=== PATIENT | female | born 1990 | race Caucasian/White ===

== ENCOUNTER → 2017-06-02 11:20 | Outpatient (CLI) | payer OTHER, SELFPAY ==
[2017-06-02 12:42] LABS: Absolute Lymphocyte Count 2.08 X10^3/ul (0.83-4.51); Absolute Neutrophil Count 6.8 X10^3/uL (2.0-7.7); Basophil# 0.02 X10^3/uL; Basophil% 0.2 % (0-1); Eosinophil# 0.07 X10^3/uL; Eosinophils% 0.7 % (0-5); Hematocrit 43.3 % (37-47); Hemoglobin 14.4 g/dl (12.0-15.0); Lymphocyte # 2.08 X10^3/ul (4.0); Lymphocyte % 21.3 % (19-41); Mean Corp Hgb Conc 33.3 g/gl (32-36); Mean Corpuscular Hgb 30.6 pg (27.0-32.0); Mean Corpuscular Volume 92.1 fL (81-99); Mean Platelet Vol. 10.2 fl (6.2-12.0); Monocyte# 0.76 X10^3/uL; Monocyte% 7.8 % (0-10); Neutrophil # 6.82 X10^3/uL (2.7-7.7); Neutrophil % 69.9 % (47-70); Platelet Count 212 K/mm3 (150-450); RBC Distribution Width CV 12.8 % (11.6-14.6); RBC Distribution Width SD 42.4 fl (35.1-43.9); White Blood Count 9.8 K/mm3 (4.4-11.0)
[2017-06-02 12:47] LABS: POSITIVE COUNT NO; POSITIVE DIFFERENTIAL NO; POSITIVE MORPHOLOGY NO
[2017-06-02 21:18] LABS: Chlamydia Trachomatis by PCR Negative (Negative); Neisserai gonorrhoeae by PCR Negative (Negative); Probe Check PASS; Sample Adequacy Control PASS; Specimen Processing Control PASS
[2017-06-03 07:46] LABS: HEPATITIS B SURFACE AG Negative (Negative)
[2017-06-03 10:12] LABS: Rubella IgG 251.4 IU/mL
[2017-06-05 03:56] LABS: Rapid Plasmin Reagin (RPR) NONREACTIVE (NONREACTIVE)
== END ==
PROVIDERS: Family Provider Family Medicine; PCP Family Medicine; Visit Provider Obstetrics & Gynecology
DX: Z34.81 Encounter for supervision of other normal pregnancy, first trimester (principal)
CPT/HCPCS: 36415; 85025; 86592; 86762; 86850; 86900; 87086; 87340; 87491; 87591

== ENCOUNTER → 2017-08-28 08:00 | Outpatient (CLI) | payer OTHER, SELFPAY ==
--- NOTE | 2017-08-28 08:03 | US_ITS ---
STUDY: SECOND AND THIRD TRIMESTER OBSTETRICAL ULTRASOUND REASON FOR EXAM: Female, 27 years old. anatomy scan LMP: 04/10/2017 TECHNIQUE: Transabdominal. Transvaginal used to evaluate cervix only. PRIOR ULTRASOUND: None. FINDINGS: There is a single intrauterine fetus. The fetus is in a cephalic presentation. There is demonstrated cardiac activity with a heart rate of 144 bpm. There is a normal amniotic fluid volume. The largest amniotic fluid pocket measures 9.8 cm. The placenta is anterior in location and is not low lying. There are Grade 0 placental changes. The cervix measures 3.4 cm in length. The adnexal regions are not visualized. BIOMETRY: BPD: 4.8 cm: 20 weeks, 4 days HC: 17.8 cm: 20 weeks, 2 days AC: 15.1 cm: 20 weeks, 3 days FL: 3.3 cm: 20 weeks, 2 days age by current US: 20 weeks, 3 days. ALVIN by current US: 01/12/2018. Estimated weight: 343 grams, +/- 50 grams, 61 %. Age by LMP: 20 weeks, 0 days. ALVIN by LMP: 01/15/2018. ANATOMY: Gender: Female Cranium: Normal lateral ventricles. Normal choroid plexus. Normal cerebellum. Normal cisterna magna. Normal face, nose and lips. Chest: Normal 4-chamber heart. Abdomen/Pelvis: Normal diaphragm. Normal stomach. Normal abdominal wall. Normal cord insertion. Normal 3 vessel cord. Normal kidneys. Normal bladder. Spine: Normal cervical spine. Normal thoracic spine. Normal lumbar spine. Normal sacrum. Extremities: Normal bilateral upper extremities. Normal bilateral lower extremities. INCIDENTALLY NOTED IS NUCHAL CORD. US/OB Anatomy Scan IMPRESSION: Single live intrauterine and current gestational age of 20 weeks 3 days with estimated date of delivery 01/12/2018. Visualized anatomy appears within normal limits. Please note nuchal cord Electronically Signed: Jas Sylvester DO at 8:14 EDT Tel , Service support ,
== END ==
PROVIDERS: Family Provider Family Medicine; PCP Family Medicine; Visit Provider Nurse Practitioner Women's Health
DX: Z34.90 Encounter for supervision of normal pregnancy, unspecified, unspecified trimester (principal)
CPT/HCPCS: 76805

== ENCOUNTER → 2017-10-19 09:37 | Outpatient (CLI) | payer OTHER, SELFPAY ==
[2017-10-19 11:28] LABS: Glucose Challenge Gest 1H 50g 112 mg/dL (70-140)
[2017-10-19 12:23] LABS: HIV - WCH Non-Reactive (Nonreactive)
== END ==
PROVIDERS: Family Provider Family Medicine; PCP Family Medicine; Visit Provider Obstetrics & Gynecology
DX: O99.89 Other specified diseases and conditions complicating pregnancy, childbirth and the puerperium (principal); M99.04 Segmental and somatic dysfunction of sacral region; Z3A.00 Weeks of gestation of pregnancy not specified
CPT/HCPCS: 82950; 86703

== ENCOUNTER → 2017-12-18 16:17 | Outpatient (CLI) | payer OTHER, SELFPAY ==
[2017-12-18 18:30] LABS: Group B Strep DNA By PCR Negative (Negative); Internal Control PASS; Probe Check PASS; Specimen Processing Control PASS
== END ==
PROVIDERS: Visit Provider Obstetrics & Gynecology
DX: Z34.83 Encounter for supervision of other normal pregnancy, third trimester (principal)
CPT/HCPCS: 87081; 87653

== ENCOUNTER 2018-01-10 23:00 | Inpatient (IN) | payer OTHER, SELFPAY ==
[2018-01-10 22:44] VITALS: BMI 37.0
[2018-01-10 23:01] LABS: ROM Internal Control Test YES-OK TO RESULT pt. (Internal QC); ROM Patient Test POSITIVE (Negative)
[2018-01-10] MEDS: Lactated Ringers 1,000 ML 50 ML IV (23:20)
[2018-01-10 23:41] LABS: Hematocrit 37.7 % (37-47); Hemoglobin 12.1 g/dl (12.0-15.0); Mean Corp Hgb Conc 32.1 g/gl (32-36); Mean Corpuscular Hgb 29.4 pg (27.0-32.0); Mean Corpuscular Volume 91.7 fL (81-99); Mean Platelet Vol. 10.8 fl (6.2-12.0); Platelet Count 181 K/mm3 (150-450); RBC Distribution Width CV 13.1 % (11.6-14.6); RBC Distribution Width SD 43.7 fl (35.1-43.9); Red Blood Count 4.11 M/mm3 (4.2-5.4); White Blood Count 11.9 K/mm3 (4.4-11.0)
[2018-01-10 23:42] LABS: Scan Indicated on CBC? Y/N NO
[2018-01-11] MEDS: Oxytocin 30 units/NS 500 ml 30 UNITS/500 ML IV.SOLN IV (01:27)
--- NOTE | 2018-01-11 01:29 | PCM.HP.OB ---
- Problem List (1) Full-term PROM with onset of labor within 24 hours of rupture Status: Acute (2) IUD contraception Status: Acute Comment: plan mirena iud PP- No PA required, reference number [id number] (3) screening encounter Status: Acute Comment: declines genetic screening (4) Supervision of normal Status: Acute Qualifiers: Comment: PRR ALVIN 01/15/18 girl [facility] Sanya Sirdevi History Date of Admission: 01/10/18 Final ALVIN: 01/15/18 Gestational age: 39 Weeks and 3 Days History of this : This is a 27 year-old, at 39 weeks gestational age presents with PROM. Her water broke and she was 4-5 cm, but after 6 hours she had minimal cervical change. she denies any vb and admits good fm. Medical History: Medical History (Last Reviewed 01/08/18 @ 11:19 by Meg Curtis) Environmental allergies Z91.09 GERD (gastroesophageal reflux disease) K21.9 Heart murmur R01.1 Allergies No Known Allergies Allergy (Verified 01/08/18 11:22) Home Medications: Home Medications Vit No.130/Iron/FA [ Vitamins] 1 ea PO DAILY 11/02/15 Ranitidine HCl [Acid Control] 150 mg PO DAILY 01/10/18 Smoking Status: Never smoker Alcohol: None Number of Fetus(es): 1 Heart Tracin moderate variability reactive no decels cat I tracing TOCO Analysis: irregular History Past Pregnancies: Past Pregnancies Pregancy History 2 Elective abortions Hx Para 1 Spontaneous abortions Hx # Term Pregnancies Ectopic pregnancies Hx # Pregnancies Multiple births # of living children Past Pregnancies Del. Date Name GA/Weeks Outcome Route Bth Weight Gen Labor Lgth Anesthesia Del Locatn Provider FOB 03/22/16 Sanya 38 live - full term 8lbs 1oz Female epidural Ronnie MIGUELINA Sridevi Delivery Date: 03/22/16 On 12/11/17 @ 09:30 Meg Curtis No issues during or delivery. Labs: Mom's Problem List Problem Status Onset Code Full-term PROM with onset of labor within 24 hours of rupture Acute O42.02 Mom's Labs & Results 01/10/18 01/10/18 01/10/18 22:35 23:20 23:20 WBC 11.9 H RBC 4.11 L Hgb 12.1 Hct 37.7 MCV 91.7 MCH 29.4 MCHC 32.1 RDW 13.1 RDW Differential 43.7 Plt Count 181 MPV 10.8 Vag Amniotic Fld Detect POSITIVE H Blood Type A POSITIVE Antibody Screen NEGATIVE Course Did the patient receive Yes care? Labs Blood Type: A RH: POSITIVE RPR/VDRL/Syphilis Nonreactive Rubella status Immune HbSAg Negative Date Done: 06/02/17 Chlamydia Negative Gonorrhea Negative HIV/AIDS Non-Reactive Group B Strep: Negative Current Obstetrical History Gestational Diabetes No Incompetent Cervix No Infertility No IUGR No Macrosomia No Hypertension/Pre-eclampsia No Placenta Previa/Abruption No PTL/PROM No Uterine anomaly No Oligohydramnios No Polyhydramnios No Multiple gestation No Past Medical History Asthma No Diabetes No Hypertension No Heart disease No Mitral valve prolapse No Neurologic/Seizure disorder/ No Migraines Kidney disease No Liver disease No Varicosities No Clotting disorders/Hx of DVT No Thyroid Dysfunction No Other medical diseases No Psychiatric disorders No Major trauma No Abnormal PAP smear No Sleep apnea No Mammogram in the last 2 years No Social History Marital Status: Alleged father sridevi Hx Smoking No Smoking Status Never smoker Expected Delivery Method: Spontaneous Vaginal Describe any other labor & delivery plans:: ALVIN Calculator. Estimated Delivery Date 01/15/18. Based on LMP (certain) 04/10/17. Current WG 39w 0d. Number 1. Expected Delivery Route/Plan. . Specific Issue/Plans. FLU VACCINE GIVEN. minichart given: given. tdap vaccine: given. rhogam: na. LARC form signed: signed. labor support person: Sridevi. pain management: epidural ok. cut cord/dad catch: yes. : yes. PP control planned: IUD Review of Systems Constitutional: Denies: Fever, Malaise Eyes: Denies: Blurred vision, Vision Change HEENT: Denies: Head Aches, Visual Changes Cardiovascular: Denies: Chest Pain, Palpitations Respiratory: Denies: Cough, Shortness of Breath, Wheezing Gastrointestinal: Denies: Abdominal Pain, Diarrhea, Nausea, Vomiting Genitourinary: Denies: Dysuria, Hematuria Gynecological: Reports: Vaginal discharge Musculoskeletal: Denies: Joint Pain, Muscle pain Skin: Denies: Lesions, Rash Neurological: Denies: Blurred vision, Focal weakness, Headaches Psychiatric: Denies: Anxiety, Depression Endocrine: Denies: Heat/ Cold Intolerance Hematologic/ Lymphatic: Denies: Easy Bruising, Easy Bleeding Physical Exam General: Alert, Cooperative, No apparent distress HEENT: Atraumatic, Normocephalic. Negative for: Thyromegaly, Lymphadenopathy Cardiovascular: Regular rate Lungs: Normal air movement Abdomen: Soft, Non Tender, Gravid Neurological: Deep Tendon Reflexes 2+/4 and Symmetrical, Neuro grossly intact. Negative for: Clonus CREDIT ANALYSIS MANAGER: Normal external genitalia. Negative for: Vulvar lesions Estimated gestational size: Appropriate for gestational size Presentation: Cephalic Cervix Dilation (cm): 4.5 Assessment/Plan All Active Problems (Last Reviewed 01/08/18 @ 11:19 by Meg Curtis) Full-term PROM with onset of labor within 24 hours of rupture (Acute) IUD contraception (Acute) Segmental and somatic dysfunction of pelvic region (Acute) Segmental and somatic dysfunction of sacral region (Acute) Segmental and somatic dysfunction of lumbar region (Acute) Sciatic leg pain (Acute) screening encounter (Acute) Supervision of normal (Acute) This is a 27 year-old, at 39 weeks gestational age presents with PROM Patient presents PROm recommend pitocin per protocol due to minimal cervical change in 6 hours post ROM Pain management: plans epidural. GBS neg. Management of any complications: none I have reviewed the [facility] and made any clinically relevant updates.
[2018-01-11] MEDS: Lactated Ringers 1,000 ML 50 ML IV ×4 (05:36→13:08)
[2018-01-11] MEDS: fentaNYL-bupivacaine (epidural) 100 ML BAG EPIDURAL ×2 (06:10→10:34)
[2018-01-11] MEDS: Oxytocin 30 units/NS 500 ml 30 UNITS/500 ML IV.SOLN 334 UNITS IV (14:55)
[2018-01-11] MEDS: Oxytocin 30 units/NS 500 ml 30 UNITS/500 ML IV.SOLN 167 UNITS IV (15:25)
[2018-01-11 20:00] VITALS: BP 120/71; PULSE 77; RESP 16; TEMP 37.1
[2018-01-12] VITALS: BP 124/70; PULSE 68; RESP 18
[2018-01-12 05:40] VITALS: BP 125/76; PULSE 67; RESP 16; TEMP 36.9
[2018-01-12] MEDS: Acetaminophen 500 MG Tablet 1000 MG PO ×2 (06:07→16:18)
[2018-01-12] MEDS: Naproxen 250 MG Tablet 500 MG PO (12:02)
[2018-01-12] MEDS: Prenatal Vits Tablet 1 TABLET PO (12:02)
[2018-01-12 14:00] VITALS: BP 126/76; PULSE 67; RESP 16; TEMP 36.6; O2SAT 97
--- NOTE | 2018-01-12 14:50 | PCM.DCVAG ---
Discharge Diet: No Restrictions Discharge Activity: Return to Normal Activity, May not drive while taking narcotic pain medications., May Shower May resume sexual activity in: 4-6 weeks Call your doctor if your incision/area has: Continuous Slow Oozing, Sudden Increased Bleeding, Increased Pain/ Swelling, Increased Redness, Foul Smelling Discharge Additional Instructions: If you experience any of the following, contact your healthcare provider. Bleeding that soaks a pad every hour for 2 hours Fever 100.4 or higher Unrelieved incision or abdominal pain Swelling, redness, discharge or bleeding from your incision or episiotomy site Your incision begins to separate Problems urinating (including inability to urinate or burning while urinating). Visual changes Severe headache Flu-like symptoms Pain or redness in one of both of your breasts Pain, warmth, tenderness or swelling in your legs, especially the calf area Frequent nausea and vomiting Symptoms of depression or anxiety If you experience any of the following, call 911 or go to the nearest Emergency Room. Chest pain Problems breathing Seizure activity Partial or complete paralysis of a body part, slurred speech, weakness or drooping of the face, or a sudden inability to walk or hold your balance Allergies/Adverse Reactions: Allergies No Known Allergies Allergy (Verified 01/08/18 11:22) Medications to take at Discharge Vit No.130/Iron/FA [ Vitamins] 1 ea PO DAILY 11/02/15 Ranitidine HCl [Acid Control] 150 mg PO DAILY 01/10/18 Please Follow Up With: Dior Galvan MD - [phone] When: Call to make an appointment with your doctor in 6 weeks. If you had elevated Blood pressure or 4th degree laceration you will need to be seen in 2 weeks. Primary Care Physician: Laverne Mitchell DO [Primary Care Provider] - Test Results: Test results from this visit will be discussed in further detail at your follow-up appointment, if applicable.
[2018-01-12 14:51] VITALS: BP 126/78; PULSE 76; RESP 16; TEMP 36.6; O2SAT 97
--- NOTE | 2018-01-12 14:51 | DCINST_ITS ---
Discharge Diet: No Restrictions Discharge Activity: Return to Normal Activity, May not drive while taking narcotic pain medications., May Shower May resume sexual activity in: 4-6 weeks Call your doctor if your incision/area has: Continuous Slow Oozing, Sudden Increased Bleeding, Increased Pain/ Swelling, Increased Redness, Foul Smelling Discharge Additional Instructions: If you experience any of the following, contact your healthcare provider. * Bleeding that soaks a pad every hour for 2 hours * Fever 100.4 or higher * Unrelieved incision or abdominal pain * Swelling, redness, discharge or bleeding from your incision or episiotomy site * Your incision begins to separate * Problems urinating (including inability to urinate or burning while urinating) . * Visual changes * Severe headache * Flu-like symptoms * Pain or redness in one of both of your breasts * Pain, warmth, tenderness or swelling in your legs, especially the calf area * Frequent nausea and vomiting * Symptoms of depression or anxiety If you experience any of the following, call 911 or go to the nearest Emergency Room. * Chest pain * Problems breathing * Seizure activity * Partial or complete paralysis of a body part, slurred speech, weakness or drooping of the face, or a sudden inability to walk or hold your balance Allergies/Adverse Reactions: Allergies No Known Allergies Allergy (Verified 01/08/18 11:22) Medications to take at Discharge Vit No.130/Iron/FA [ Vitamins] 1 ea PO DAILY 11/02/15 Ranitidine HCl [Acid Control] 150 mg PO DAILY 01/10/18 Please Follow Up With: Dior Galvan MD - [phone] When: Call to make an appointment with your doctor in 6 weeks. If you had elevated Blood pressure or 4th degree laceration you will need to be seen in 2 weeks. Primary Care Physician: Laverne Mitchell DO [Primary Care Provider] - Test Results: Test results from this visit will be discussed in further detail at your follow- up appointment, if applicable.
--- NOTE | 2018-01-13 21:33 | PCM.OB.VAG ---
- Problem List (1) Full-term PROM with onset of labor within 24 hours of rupture Status: Acute (2) IUD contraception Status: Acute Comment: plan mirena iud PP- No PA required, reference number [id number] (3) screening encounter Status: Acute Comment: declines genetic screening (4) Supervision of normal Status: Acute Qualifiers: Comment: PRR ALVIN 01/15/18 girl Monty MARSHALL Sanya Kalpesh Vaginal Delivery Maternal Presentation: Active Labor, Spontaneous Rupture of Membranes Amniotic Membrane Rupture Type: Spontaneous at home Amniotic Fluid Description: Clear Final ALVIN: 01/15/18 Gestational age: 39 Weeks and 5 Days Date of Procedure: 01/11/18 Surgery/ Procedure Performed: Spontaneous Vaginal Delivery Type of Anesthesia: Epidural Description of Procedure: Patient began pushing and delivered the head in the DEANN presentation. The head was delivered atraumatically. The anterior and posterior shoulders delivered without complication followed by the rest of the infant and the infant was placed on the maternal abdomen. Delayed cord clamping was employed for approximately 60 seconds. Cord was clamped and cut and gentle traction was applied to the cord and the placenta delivered spontaneously immediately following it was noted to be intact with three-vessel cord. The perineum and vagina were inspected and noted to have a small first-degree laceration that was repaired in the usual fashion with 3-0 Vicryl Rapide. EBL was 500 cc. Patient and infant tolerated delivery well. Presentation: DEANN Placental Delivery Description: Spontaneous Placenta Disposition: [facility] Cord Vessel Description: 3 Vessels Cord Entanglement: None Estimated Blood Loss: 500 Infant A gender: Female Episiotomy Description: None Laceration: Perineal Extension/lac, 1st degree Medications given after delivery: IV Pitocin Complications: None
--- NOTE | 2018-01-13 21:35 | PCM.PN.OB ---
Subjective: late entry 01/13/18- patient seen 01/12/18 at 7:50 am no CP SOB N V doing well pain controlled - Physical Exam General: Alert, Oriented x3 Vital Signs Temp Pulse Resp BP Pulse Ox 97.8 F 76 16 126/78 H 97 01/12/18 14:51 01/12/18 14:51 01/12/18 14:51 01/12/18 14:51 01/12/18 14:51 Oxygen Delivery Method Room Air Weight: 222 lb 10.67 oz Body Mass Index (BMI) 37.0 Intake and Output for Last 24 Hours 01/11/18 01/12/18 01/13/18 23:59 23:59 23:59 Intake Total 1150 / 1150 Output Total 950 / 950 Balance 200 / 200 Medical Necessity - Tobacco Use Smoking Status: Never smoker Assessment/Plan All Active Problems (Last Reviewed 01/08/18 @ 11:19 by Meg Curtis) Full-term PROM with onset of labor within 24 hours of rupture (Acute) IUD contraception (Acute) Segmental and somatic dysfunction of pelvic region (Acute) Segmental and somatic dysfunction of sacral region (Acute) Segmental and somatic dysfunction of lumbar region (Acute) Sciatic leg pain (Acute) screening encounter (Acute) Supervision of normal (Acute) s/p ppd 1 routine care doing well dc home
== END 2018-01-12 16:45 | disposition home or self-care (01) | DRG 774 ==
LOC: WP 01-11 11:10 → WPOUT 01-12 07:12
PROVIDERS: Admitting Provider Obstetrics & Gynecology; Family Provider Family Medicine; PCP Family Medicine; Visit Provider Obstetrics & Gynecology
DX: O42.02 Full-term premature rupture of membranes, onset of labor within 24 hours of rupture (principal); O99.413 Diseases of the circulatory system complicating pregnancy, third trimester; R01.1 Cardiac murmur, unspecified; O70.0 First degree perineal laceration during delivery; O99.613 Diseases of the digestive system complicating pregnancy, third trimester; K21.9 Gastro-esophageal reflux disease without esophagitis; Z3A.39 39 weeks gestation of pregnancy; Z37.0 Single live birth
CPT/HCPCS: 59025; 59050; 84112; 85027; 86850; 86900; 99218; J7120; G0378

== ENCOUNTER → 2018-02-22 20:16 | Outpatient (CLI) | payer OTHER, SELFPAY ==
[2018-02-25 11:22] LABS: HPV Reflexed? NOT INDICATED
== END ==
PROVIDERS: Obstetrics & Gynecology; Family Provider Family Medicine; PCP Family Medicine; Referring Provider Nurse Practitioner Women's Health; Visit Provider Nurse Practitioner Women's Health
DX: Z12.4 Encounter for screening for malignant neoplasm of cervix (principal)
CPT/HCPCS: 87624; 88175; G0145

== ENCOUNTER → 2018-04-01 12:50 | Outpatient (CLI) | payer OTHER, SELFPAY ==
[2018-03-29 13:08] VITALS: BMI 33.1
--- NOTE | 2018-04-01 12:52 | US_ITS ---
STUDY: ULTRASOUND OF THE FEMALE PELVIS - COMPLETE REASON FOR EXAM: Female, 28 years old. IUD placement. LMP: February 22, 2018. TECHNIQUE: Transabdominal and Transvaginal TECHNICAL QUALITY: Adequate. COMPARISON: None. FINDINGS: The uterus is anteverted and is in a midline position. The uterus measures 6.5 cm x 5.1 cm x 3.5 cm. Normal uterine cervix. The endometrium measures 3.6 mm in thickness, and is hyperechoic. There is no demonstrated endometrial mass. There is no demonstrated myometrial mass. I.U.D. - The patient does have an I.U.D. it is in good position. The right ovary is visualized. The right ovary measures 3.0 cm x 2.0 cm x 2.3 cm. There is no right ovarian cyst or ovarian mass. There is no visualized right adnexal mass or complex lesion. There is normal arterial and normal venous vascularity. The left ovary is visualized. The left ovary measures 2.5 cm x 2.2 [place] by 1.5 cm. There is no left ovarian cyst or ovarian mass. There is no visualized left adnexal mass or complex lesion. There is normal arterial and normal venous vascularity. There is no fluid in the cul-de-sac. The pre void volume of the bladder was 598 ml. Polycystic ovary disease: No. US/Transvaginal Non- IMPRESSION: Normal female pelvis. Electronically Signed: Marshall Silverio MD at 13:24 EST Tel [phone], Service support ,
--- NOTE | 2018-04-01 12:52 | US_ITS ---
STUDY: ULTRASOUND OF THE FEMALE PELVIS - COMPLETE REASON FOR EXAM: Female, 28 years old. IUD placement. LMP: February 22, 2018. TECHNIQUE: Transabdominal and Transvaginal TECHNICAL QUALITY: Adequate. COMPARISON: None. FINDINGS: The uterus is anteverted and is in a midline position. The uterus measures 6.5 cm x 5.1 cm x 3.5 cm. Normal uterine cervix. The endometrium measures 3.6 mm in thickness, and is hyperechoic. There is no demonstrated endometrial mass. There is no demonstrated myometrial mass. I.U.D. - The patient does have an I.U.D. it is in good position. The right ovary is visualized. The right ovary measures 3.0 cm x 2.0 cm x 2.3 cm. There is no right ovarian cyst or ovarian mass. There is no visualized right adnexal mass or complex lesion. There is normal arterial and normal venous vascularity. The left ovary is visualized. The left ovary measures 2.5 cm x 2.2 Pablito by 1.5 cm. There is no left ovarian cyst or ovarian mass. There is no visualized left adnexal mass or complex lesion. There is normal arterial and normal venous vascularity. There is no fluid in the cul-de-sac. The pre void volume of the bladder was 598 ml. Polycystic ovary disease: No. US/Pelvic (Non ) IMPRESSION: Normal female pelvis. Electronically Signed: Marshall Silverio MD at 13:24 EST Tel [phone], Service support ,
--- OUTSIDE RECORDS SUMMARY | 2018-05-27 16:17 | XMS RPT_ITS ---
:1990 Author Organization [facility] Support Name Relationship Address Phone KATIE FRANCO Unavailable [id number] + [place] [address] [facility] Unavailable [address] + [place] [address] KATIE FRANCO Unavailable [address] + [place] [address] [facility] Unavailable [address] + [place] [address] KATIE FRANCO Unavailable [address] + [place] [address] [facility] Unavailable [address] + [place] [address] KATIE FRANCO Unavailable [address] + [place] [address] [facility] Unavailable [address] + [place] [address] KATIE FRANCO Unavailable [address] + [place] [address] [facility] Unavailable [address] + [place] [address] KATIE FRANCO Unavailable [address] + [place] [address] [facility] Unavailable [address] + [place] [address] KATIE FRANCO Unavailable [address] + [place] [address] [facility] Unavailable [address] + [place] [address] KATIE FRANCO Unavailable [address] + [place] [address] [facility] Unavailable [address] + [place] [address] CHRISTO FRANCOON Unavailable [address] + [place] [address] [facility] Unavailable [address] + [place] [address] CHRISTO FRANCOON Unavailable [address] + [place] [address] [facility] Unavailable [address] + [place] [address] CHRISTO FRANCOON Unavailable [address] + [place] [address] [facility] Unavailable [address] + [place] [address] CHRISTO FRANCOON Unavailable [address] + [place] [address] [facility] Unavailable [address] + [place] [address] CHRISTO FRANCOON Unavailable [address] + [place] [address] [facility] Unavailable [address] + [place] [address] CHRISTO FRANCOON Unavailable [address] + [place] [address] [facility] Unavailable [address] + [place] [address] CHRISTO FRANCOON Unavailable [address] + [place] [address] [facility] Unavailable [address] + [place] [address] CHRISTO FRANCOON Unavailable [address] + [place] [address] [facility] Unavailable [address] + [place] [address] CHRISTO FRANCOON Unavailable [address] + [place] [address] [facility] Unavailable [address] + [place] [address] CHRISTO FRANCOON Unavailable [address] + [place] [address] [facility] Unavailable [address] + [place] [address] CHRISTO FRANCOON Unavailable [address] + [place] [address] [facility] Unavailable [address] + [place] [address] CHRISTO FRANCOON Unavailable [address] + [place] [address] [facility] Unavailable [address] + [place] [address] CHRISTO FRANCOON Unavailable [address] + [place] [address] [facility] Unavailable [address] + [place] [address] CHRISTO FRANCOON Unavailable [address] + [place] [address] [facility] Unavailable [address] + [place] [address] CHRISTO FRANCOON Unavailable [address] + [place] [address] [facility] Unavailable [address] + [place] [address] CHRISTO FRANCOON Unavailable [address] + [place] [address] [facility] Unavailable [address] + [place] [address] CHRISTO FRANCOON Unavailable [address] + [place] [address] [facility] Unavailable [address] + [place] [address] CHRISTO FRANCOON Unavailable [address] + [place] [address] [facility] Unavailable [address] + [place] [address] CHRISTO FRANCOON Unavailable [address] + [place] [address] [facility] Unavailable [address] + [place] [address] CHRISTO FRANCOON Unavailable [address] + [place] [address] [facility] Unavailable [address] + [place] [address] KATIE FRANCO Unavailable [address] [address] + [place] [address] [facility] Unavailable [address] + [place] [address] KATIE FRANCO Unavailable [address] + [place] [address] [facility] Unavailable [address] + [place] [address] KATIE FRANCO Unavailable [address] + [place] [address] [facility] Unavailable [address] + [place] [address] KATIE FRANCO Unavailable [address] + [place] [address] [facility] Unavailable [address] + [place] [address] Care Team Providers Name Role Phone Dior Galvan Attending Unavailable Malys, Laverne Referring Unavailable Malys, Laverne Primary Care Unavailable Dior Galvan Attending Unavailable Malys, Laverne Primary Care Unavailable Dior Galvan Referring Unavailable Dior Galvan Attending Unavailable Malys, Laverne Referring Unavailable Malys, Laverne Primary Care Unavailable MinaRaghavy Attending Unavailable Malys, Laverne Referring Unavailable Malys, Laverne Primary Care Unavailable [place] Stefanie Attending Unavailable Mina, Stefanie Referring Unavailable Malys, Laverne Primary Care Unavailable [place] Stefanie Attending Unavailable Malys, Laverne Referring Unavailable Malys, Laverne Primary Care Unavailable DossieKamila D.C. Attending Unavailable Malys, Laverne Referring Unavailable Malys, Laverne Primary Care Unavailable DossieKamila D.C. Attending Unavailable Malys, Laverne Referring Unavailable Malys, Laverne Primary Care Unavailable DossiKamila bryan D.C. Attending Unavailable Malys, Laverne Referring Unavailable Malys, Laverne Primary Care Unavailable Dior Galvan Attending Unavailable Malys, Laverne Referring Unavailable Malys, Laverne Primary Care Unavailable Marcanthony, Dior Attending Unavailable Malys, Laverne Referring Unavailable Malys, Laverne Primary Care Unavailable Marcanthony, Dior Attending Unavailable Marcanthony, Dior Referring Unavailable Malys, Laverne Primary Care Unavailable ASSESSMENT, HEALTH RISK Attending Unavailable ASSESSMENT, HEALTH RISK Referring Unavailable Marcanthony, Dior Primary Care Unavailable Kamila Pascal D.C. Attending Unavailable Malys, Laverne Referring Unavailable Marcanthony, Dior Primary Care Unavailable Marcanthony, Dior Attending Unavailable Malys, Laverne Referring Unavailable Marcanthony, Dior Primary Care Unavailable Marcanthony, Dior Attending Unavailable Malys, Laverne Referring Unavailable Marcanthony, Dior Primary Care Unavailable Marcanthony, Dior Primary Care Unavailable Referred, Self Attending Unavailable Marcanthony, Dior Attending Unavailable Malys, Laverne Referring Unavailable Marcanthony, Dior Primary Care Unavailable Marcanthony, Dior Attending Unavailable Marcanthony, Dior Referring Unavailable Marcanthony, Dior Primary Care Unavailable Marcanthony, Dior Attending Unavailable Marcanthony, Dior Referring Unavailable Primay Care Physicia, No Primary Care Unavailable Marcanthony, Dior Attending Unavailable Malys, Laverne Referring Unavailable Primay Care Physicia, No Primary Care Unavailable Marcanthony, Dior Admitting Unavailable Marcanthony, Dior Attending Unavailable Marcanthony, Dior Referring Unavailable Malys, Laverne Primary Care Unavailable Mina, Stefanie Attending Unavailable Marcanthony, Dior Referring Unavailable Malys, Laverne Primary Care Unavailable Marcanthony, Dior Attending Unavailable Marcanthony, Dior Referring Unavailable Malys, Laverne Primary Care Unavailable Marcanthony, Dior Attending Unavailable Malys, Laverne Primary Care Unavailable Marcanthony, Dior Admitting Unavailable Marcanthony, Dior Referring Unavailable Marcanthony, Dior Admitting Unavailable Marcanthony, Dior Attending Unavailable Malys, Laverne Primary Care Unavailable Marcanthony, Dior Consulting Unavailable Marcanthony, Dior Attending Unavailable Malys, Laverne Referring Unavailable Marcanthony, Dior Admitting Unavailable Marcanthony, Dior Attending Unavailable Marcanthony, Dior Referring Unavailable Malys, Laverne Primary Care Unavailable Marcanthony, Dior Consulting Unavailable Malys, Laverne Referring Unavailable Mina, Stefanie Attending Unavailable Malys, Laverne Primary Care Unavailable Mina, Stefanie Attending Unavailable [place], Stefanie Referring Unavailable Mina, Stefanie Attending Unavailable Malys, Laverne Referring Unavailable Mina, Stefanie Attending Unavailable [place], Stefanie Referring Unavailable Malys, Laverne Primary Care Unavailable PROBLEMS PROBLEMS DATE TYPE CONDITION / CODE ATTENDING STATUS SOURCE 03/29/2018 Unknown Z30.431 - Encounter MinaRaghav horny Active [place] for routine Community checking of Hospital intrauterine Repository contraceptive device / Z30.431(ICD-10) 02/23/2018 Unknown Z12.4 - Encounter MinaStefanie horn Active [place] for screening for [facility] malignant neoplasm Hospital of cervix / Repository Z12.4(ICD-10) 02/22/2018 Unknown Z97.5 - Presence of MinaStefanie Active [place] (intrauterine) [facility] contraceptive Hospital device / Repository Z97.5(ICD-10) 02/22/2018 Unknown Z30.430 - Encounter [place] Active [place] for insertion of [facility] intrauterine Hospital contraceptive Repository device / Z30.430(ICD-10) 01/08/2018 Unknown Z36.9 - Encounter Mandy, Active [place] for [facility] screening, [facility] unspecified / Repository Z36.9(ICD-10) 01/08/2018 Unknown Z34.83 - Encounter Marcanthony, Active [place] for supervision of [facility] other normal Hospital , third Repository trimester / Z34.83(ICD-10) 12/22/2017 Unknown Z34.90 - Encounter Marcanthony, Active [place] for supervision of [facility] normal , Hospital unspecified, Repository unspecified trimester / Z34.90(ICD-10) 11/23/2017 Unknown Z34.82 - Encounter Mandy, Active [place] for supervision of [facility] other normal Hospital , second Repository trimester / Z34.82(ICD-10) 10/20/2017 Unknown M99.03 - Segmental Dossie, Kamila Active [place] and somatic [facility]. Community dysfunction of Hospital lumbar region / Repository M99.03(ICD-10) 10/20/2017 Unknown M99.04 - Segmental Dossie, Kamila Active [place] and somatic [facility]. Community dysfunction of Hospital sacral region / Repository M99.04(ICD-10) 10/20/2017 Unknown M99.05 - Segmental Dossie, Kamila Active [place] and somatic [facility]. Community dysfunction of Hospital pelvic region / Repository M99.05(ICD-10) 10/19/2017 Unknown Z34.81 - Encounter Mandy, Active [place] for supervision of [facility] normal Hospital , first Repository trimester / Z34.81(ICD-10) 10/19/2017 Unknown Z23 - Encounter for Mandy, Active [place] immunization / [facility] Z23(ICD-10) Hospital Repository 10/19/2017 Unknown Z3A.27 - 27 weeks Mandy, Active [place] gestation of [facility] / Hospital Z3A.27(ICD-10) Repository 09/21/2017 Unknown Z3A.23 - 23 weeks Mandy, Active [place] gestation of [facility] / Hospital Z3A.23(ICD-10) Repository 09/11/2017 Unknown M54.30 - Sciatica, Dossie, Kamila Active [place] unspecified side / D.C. [facility] M54.30(ICD-10) Hospital Repository 07/29/2017 Unknown Z3A.15 - 15 weeks Stefanie Enriquez Active [place] gestation of [facility] / Hospital Z3A.15(ICD-10) Repository 06/02/2017 Unknown Z3A.01 - Less than Mandy, Active [place] 8 weeks gestation [facility] of / Hospital Z3A.01(ICD-10) Repository PROCEDURES PROCEDURES No Procedure Records FoundRESULTS RESULTS TRANSVAGINAL Observed: 04/01/2018 Status: F Source: [place] NON- 12:52 PM [facility] REPOSITORY Imaging Services [address] [place] [address] Transvaginal Non- MR#: [id number] Acct: [id number] Name: CLINT FRANCO Rep #: [id number] : 1990 F 28 From: Marshall Silverio MD PCP: Laverne Mitchell DO Status: REG CLI Study: Transvaginal Non- Date of Exam: 04/01/18 Exam# [id number] Ordering Dr: Stefanie Enriquez ASSURANCE OFFICER-C STUDY: ULTRASOUND OF THE FEMALE PELVIS - COMPLETE REASON FOR EXAM: Female, 28 years old. IUD placement. LMP: February 22, 2018. TECHNIQUE: Transabdominal and Transvaginal TECHNICAL QUALITY: Adequate. COMPARISON: None. FINDINGS: The uterus is anteverted and is in a midline position. The uterus measures 6.5 cm x 5.1 cm x 3.5 cm. Normal uterine cervix. The endometrium measures 3.6 mm in thickness, and is hyperechoic. There is no demonstrated endometrial mass. There is no demonstrated myometrial mass. I.U.D. - The patient does have an I.U.D. it is in good position. The right ovary is visualized. The right ovary measures 3.0 cm x 2.0 cm x 2.3 cm. There is no right ovarian cyst or ovarian mass. There is no visualized right adnexal mass or complex lesion. There is normal arterial and normal venous vascularity. The left ovary is visualized. The left ovary measures 2.5 cm x 2.2 [place] by 1.5 cm. There is no left ovarian cyst or ovarian mass. There is no visualized left adnexal mass or complex lesion. There is normal arterial and normal venous vascularity. There is no fluid in the cul-de-sac. The pre void volume of the bladder was 598 ml. Polycystic ovary disease: No. US/Transvaginal Non- IMPRESSION: Normal female pelvis. Electronically Signed: Marshall Silverio MD at 13:24 EST Tel [phone], Service support , CC: TRACIE Enriquez; Laverne Mitchell DO Silk Brusher: Signed PELVIC (NON ) Observed: 04/01/2018 Status: F Source: [place] 12:52 PM [facility] [place] [address] Pelvic (Non ) MR#: [id number] Acct: [id number] Name: JOANCLINT L Rep #: [id number] : 1990 F 28 From: Marshall Silverio MD PCP: Laverne Mitchell DO Status: REG CLI Study: Pelvic (Non ) Date of Exam: 04/01/18 Exam# [id number] Ordering Dr: Stefanie Enriquez STUDY: ULTRASOUND OF THE FEMALE PELVIS - COMPLETE REASON FOR EXAM: Female, 28 years old. IUD placement. LMP: February 22, 2018. TECHNIQUE: Transabdominal and Transvaginal TECHNICAL QUALITY: Adequate. COMPARISON: None. FINDINGS: The uterus is anteverted and is in a midline position. The uterus measures 6.5 cm x 5.1 cm x 3.5 cm. Normal uterine cervix. The endometrium measures 3.6 mm in thickness, and is hyperechoic. There is no demonstrated endometrial mass. There is no demonstrated myometrial mass. I.U.D. - The patient does have an I.U.D. it is in good position. The right ovary is visualized. The right ovary measures 3.0 cm x 2.0 cm x 2.3 cm. There is no right ovarian cyst or ovarian mass. There is no visualized right adnexal mass or complex lesion. There is normal arterial and normal venous vascularity. The left ovary is visualized. The left ovary measures 2.5 cm x 2.2 [place] by 1.5 cm. There is no left ovarian cyst or ovarian mass. There is no visualized left adnexal mass or complex lesion. There is normal arterial and normal venous vascularity. There is no fluid in the cul-de-sac. The pre void volume of the bladder was 598 ml. Polycystic ovary disease: No. US/Pelvic (Non ) IMPRESSION: Normal female pelvis. Electronically Signed: Marshall Silverio MD at 13:24 EST Tel [phone], Service support , CC: TRACIE Enriquez; Laverne Mitchell DO Silk Brusher: Signed ENVIRONMENTAL TECHNOLOGY PROFESSOR OFFICE VISIT Observed: 03/29/2018 Status: F Source: [place] REPORT 1:21 PM [facility] Women's [facility] [address] [place] [address] OFFICE VISIT Date of Service: 03/29/18 MR#: [id number] Acct: [id number] Name: CLINT FRANCO Rep #: [id number] : 1990 Provider: TRACIE Enriquez Age/Sex: 28/F Location: [facility] Status: Signed Intake Vital Signs03/29/18 Height 5 ft 5 in 03/29/18 Weight: 199 lb 2 oz 03/29/18 Body Mass Index (BMI) 33.1 03/29/18 Blood Pressure 118/80 Intake Visit Reasons: f/u Chief Complaint: 6w string check Appeals Examiner Required: No Is patient in pain?: No Allergies No Known Allergies Allergy (Verified 03/29/18 13:08) Medications Vit No.130/Iron/FA [ Vitamins] 1 ea PO DAILY 11/02/15 [History Confirmed 03/29/18] levonorgestrel 20 mcg/24 hr (5 years) intrauterine device 1 insert INTRAUTERINE ONCE 03/29/18 [History Confirmed 03/29/18] Is last menstrual period known: No Post menopausal: No Patient : No : No PFSH Medical History Environmental allergies (Acute) GERD (gastroesophageal reflux disease) (Acute) Heart murmur (Acute) Family History Other Asthma Breast cancer CVA (cerebral vascular accident) Cancer Hypertension Social History Smoking Status: Never smoker alcohol intake: never substance use type: does not use caffeine: Yes what type of physical activity do you participate in: none seatbelt use: always do you feel safe at home: Yes additional social history: TIM BETH HPI f/u: Details: CLINT FRANCO is a 28 year old who presents for 6 week mirena IUD check. States has had to wear tampon every day since placement. No pain. Pregancy History 2 Elective abortions Hx Para 2 Spontaneous abortions Past Pregnancies Del. DateName GA/Weeks Outcome Route Bth WeighInfant GeLabor LgtAnesthesiDel LocatProvider FOB t n h a n Delivery Date: 01/11/18 No notes to display Delivery Date: 03/22/16 On 12/11/17 @ 09:30 Meg Curtis No issues during or delivery. Exam General: bladder normal to palpation External Female Exam: normal external appearance, normal appearance of the urethra Urethra: normal appearance of the urethra Speculum Exam - Vagina: normal appearance of the vagina, normal vaginal discharge, nontender, no lesions Speculum Exam - Cervix: normal appearance of the cervix (Not able to visualize or feel strings. Very posterior cervix), other (smooth, nonfriable) Bimanual Exam- Vagina AND Uterus: bladder normal to palpation, normal bimanual exam, uterine size normal, uterine shape normal, uterine mobility normal, uterus non-tender Bimanual Exam- Adnexa, other: normal adnexae, no adnexal masses, adnexae non-tender Assessment AND Plan Problems 1. IUD check up Z30.431 Plan Ultrasound to confirm IUD placement. Condoms until US resulted Orders Orders: Plan Detail Goals Decrease inflammation and pain Coding Level of Care Code Off vis,est,level 3 Diagnoses IUD check up Z30.431 03/29/18 1321 <Electronically signed by Stefanie GARZA> Date Stefanie GARZA Cosigner Signature: Date (if applicable) CC: ENVIRONMENTAL TECHNOLOGY PROFESSOR OFFICE VISIT Observed: 02/27/2018 Status: F Source: [place] REPORT 2:55 AM [facility] [address] [place] [address] OFFICE VISIT Date of Service: 02/22/18 MR#: [id number] Acct: [id number] Name: CLINT FRANCO Rep #: [id number] : 1990 Provider: TRACIE Enriquez Age/Sex: 27/F Location: [facility] Status: Signed Intake Vital Signs02/22/18 Weight: 200 lb 02/22/18 Blood Pressure 126/74 H Intake Visit Reasons: 6 WEEK PP Appeals Examiner Required: No Is patient in pain?: No Allergies No Known Allergies Allergy (Verified 02/22/18 14:24) Medications Vit No.130/Iron/FA [ Vitamins] 1 ea PO DAILY 11/02/15 [History Confirmed 02/22/18] Ranitidine HCl [Acid Control] 150 mg PO DAILY 01/10/18 [History Confirmed 02/22/18] : No PFSH Medical History Environmental allergies (Acute) GERD (gastroesophageal reflux disease) (Acute) Heart murmur (Acute) Family History Other Asthma Breast cancer CVA (cerebral vascular accident) Cancer Hypertension Social History Smoking Status: Never smoker alcohol intake: never substance use type: does not use caffeine: Yes what type of physical activity do you participate in: none seatbelt use: always do you feel safe at home: Yes additional social history: TIM BETH Pregancy History 2 Elective abortions Hx Para 2 Spontaneous abortions Past Pregnancies Del. DateName GA/Weeks Outcome Route Bth WeighInfant GeLabor LgtAnesthesiDel LocatProvider FOB t n h a n Delivery Date: 01/11/18 No notes to display Delivery Date: 03/22/16 On 12/11/17 @ 09:30 Meg Curtis No issues during or delivery. Depression Screen PHQ-2/9 PHQ-2 Over the last 2 weeks, how often have you been bothered by any of the following problems? 1. Little interest or pleasure in doing things: not at all 2. Feeling down, depressed, or hopeless: not at all Total score: 0 If score is 2 or greater, continue Source: Developed by Drs. Lacho Charles, Snow Jean, Joseph Jason and colleagues, with an educational socorro from [employer]. Scoring: Total Score Depression Severity Action 1-4 Minimal depression No action needed 5-9 Mild depression Repeat PHQ-9 at follow up 10-14 Moderate depression Make tx plan,consider counseling, fup, prescription Post HPI 6 WEEK PP: Details: CLINT FRANCO is a 27 year old who presents for her post visit. Doing well without concerns. Plans mirena IUD today Feeding: Breast Menses resumed: No [place] since delivery: No Emotional Support: Yes Last Pap:: due ROS Card Denies chest pain, Denies shortness of breath Resp Denies shortness of breath GI Denies change in bowel habits, Denies bloating Denies difficulty urinating Skin/Breast Denies breast lump, Denies breast pain, Denies breast skin changes Exam Const General: cooperative, no acute distress, well developed Nutritional Appearance: average body habitus Orientation: oriented x3 Chest Chest palpation AND inspection: abnormal inspection of the chest Breast inspection: normal inspection of the breasts Breast palpation: normal palpation of the breasts, normal palpation of the axillae, no axillary lymphadenopathy GI Palpation: soft, nontender, no masses General: bladder normal to palpation External Female Exam: normal external appearance, normal appearance of the urethra Urethra: normal appearance of the urethra Speculum Exam - Vagina: normal appearance of the vagina, normal vaginal discharge Speculum Exam - Cervix: normal appearance of the cervix (pap collected) Bimanual Exam- Vagina AND Uterus: bladder normal to palpation, normal bimanual exam, uterine size normal, uterine shape normal, uterine mobility normal, uterus non-tender Bimanual Exam- Adnexa, other: normal adnexae, no adnexal masses, adnexae non-tender, pelvic support normal Pelvic Support: normal Office Procedures Mirena IUD IUD GC/Chlamydia:: not done Test: Yes Negative Consent Signed: Yes Time out checklist: patient, procedure, site marked/identified, positioning of patient, supplies available, allergies confirmed, team agrees on procedure IUD: Yes Mirena Time out time: 14:58 Details: Sign in Communication: Completed Sign out documentation: Completed The uterus sounded to 8cm. After prepping the cervix with betadine and using sterile technique, the cervix was grasped with a single tooth tenaculum and the IUD was inserted without difficulty and the string was cut to 3cm from the external os of the cervix. All instruments were removed from the vagina and excellent hemostasis was noted. Procedure Summary: patient tolerated the procedure well without complication. Office Meds levonorgestrel Performing Provider: Doir Galvan MD Administered by: Jody Nice on 02/22/18 14:30 Dose Route Admin Location Lot Number Expiration DateNDC Greens Cutter 1 insert Intrauterine uterus [id number] 09/01/19 17186-389-21 JANET,PHARM DIV Results [facility] Office , Urine Negative Last Edit by Jody Nice on 02/22/18 14:29 Assessment AND Plan Problems 1. exam Z39.2 2. Encounter for IUD insertion Z30.430 Plan - GREG Dorado Routine care-pap collected Reviewed S AND S infection/condom use and written information given RTO 5 weeks to check IUD Orders Orders: Medications Discontinued: levonorgestrel Discontinued Reason: Office M1 insert Intrauterine ONCE #1 0RF Z30.430 edication has been Documented as given Plan Detail Goals Decrease inflammation and pain Coding Diagnoses exam Z39.2 Encounter for IUD insertion Z30.430 Additional Codes IUD (73677) IUD (64311) IUD Insertion IUD GC/Chlamydia:: not done Test: Yes Negative Details: Sign in Communication: Completed Sign out documentation: Completed The uterus sounded to [] cm. After prepping the cervix with betadine and using sterile technique, the cervix was grasped with a single tooth tenaculum and the IUD was inserted without difficulty and the string was cut to 3cm from the external os of the cervix. All instruments were removed from the vagina and excellent hemostasis was noted. Procedure Summary: patient tolerated the procedure well without complication. 02/27/18 0255 <Electronically signed by Dior Galvan MD> Date Dior Galvan MD 02/22/18 1501<Electronically signed by Steafnie GARZA> Cosigner Signature: Date (if applicable) Stefanie Enriquez ASSURANCE OFFICER-Imani CC: PAP I-G W/RFX Collected: 02/22/2018 Status: F Source: [place] HRHPV-APTIMA 3:00 PM [facility] Order Comment: CYTOLOGY INFORMATION: - CLINICAL INFORMATION: - DATE LMP/MENOPAUSE: UNKNOWN - COLLECTION VIAL: Thin Prep Vial - MINE SAFETY DIRECTOR SOURCE: CERVICAL - COLLECTION TECHNIQUE: BRUSH/SPATULA Specimen Comment: [id number] Specimen Comment: Source.............Cervix Specimen Comment: Other..............Post- Specimen Comment: No. of containers..01 ThinPrep Vial TYPE CODE TESTS RESULT OUT OF RANGE REFERENCE UNITS LAB L7400.0800 . Normal DIAGN Comment Result Comment: NEGATIVE FOR INTRAEPITHELIAL LESION AND MALIGNANCY. LAB L7400.0900 . Normal ADEQ Comment Result Comment: Satisfactory for evaluation. Endocervical and/or squamous metaplastic cells (endocervical component) are present. LAB L7400.1400 . Normal PERFORM Comment Result Comment: Apoorva Dockery, Railroad Car Painter (ASCP) LAB L7400.2575 . Normal TEST METHOD Comment Result Comment: This liquid based ThinPrep(R) pap test was screened with the use of an image guided system. LAB L7400.2600 . Normal . COMM LAB L7400.2700 . Normal PAPSMR Comment Result Comment: The Pap smear is a screening test designed to aid in the detection of premalignant and malignant conditions of the uterine cervix. It is not a diagnostic procedure and should not be used as the sole means of detecting cervical cancer. Both false-positive and false-negative reports do occur. LAB L7400.2800 . Normal HPV RFLX Comment Result Comment: The HPV DNA reflex criteria were not met with this specimen result therefore, no HPV testing was performed. Performed at: [address] [id number] Women[employer] Lacrosse Coach: Mariposa Suero MD, Phone: [phone] Performed By: #### L7400.0353 #### [facility] (refer to report for specific site) refer to report for address and phone number OPERATIVE REPORT Observed: 01/13/2018 Status: F Source: [place] 9:35 PM [facility] Medical Records Department [address] [place] [address] Operative Report 01/13/182132 MR#: [id number] Acct: [id number] Name: CLINT FRANCO Rep #: [id number] : 1990 27 From: Dior Galvan MD PCP: Laverne Mitchell DO Status: DIS IN Y Location: ZY735-4 - Problem List (1) Full-term PROM with onset of labor within 24 hours of rupture Status: Acute (2) IUD contraception Status: Acute Comment: plan mirena iud PP- No PA required, reference number [id number] (3) screening encounter Status: Acute Comment: declines genetic screening (4) Supervision of normal Status: Acute Qualifiers: Comment: PRR ALVIN 01/15/18 girl Monty MARSHALL Sanya Katie Vaginal Delivery Maternal Presentation: Active Labor, Spontaneous Rupture of Membranes Amniotic Membrane Rupture Type: Spontaneous at home Amniotic Fluid Description: Clear Final ALVIN: 01/15/18 Gestational age: 39 Weeks and 5 Days Date of Procedure: 01/11/18 Surgery/ Procedure Performed: Spontaneous Vaginal Delivery Type of Anesthesia: Epidural Description of Procedure: Patient began pushing and delivered the head in the DEANN presentation. The head was delivered atraumatically. The anterior and posterior shoulders delivered without complication followed by the rest of the and the infant was placed on the maternal abdomen. Delayed cord clamping was employed for approximately 60 seconds. Cord was clamped and cut and gentle traction was applied to the cord and the placenta delivered spontaneously immediately following it was noted to be intact with three-vessel cord. The perineum and vagina were inspected and noted to have a small first-degree laceration that was repaired in the usual fashion with 3-0 Vicryl Rapide. EBL was 500 cc. Patient and tolerated delivery well. Presentation: DEANN Placental Delivery Description: Spontaneous Placenta Disposition: [facility] Cord Vessel Description: 3 Vessels Cord Entanglement: None Estimated Blood Loss: 500 A gender: Female Episiotomy Description: None Laceration: Perineal Extension/lac, 1st degree Medications given after delivery: IV Pitocin Complications: None 01/13/182134 <Electronically signed by Dior Galvan MD> Date Dior Galvan MD CC: Laverne Mitchell DO; Dior Galvan MD Signed DISCHARGE INSTRUCTION Observed: 01/12/2018 Status: F Source: [place] 2:51 PM [facility] Medical Records Department [address] [place] [address] Instructions for Home/Discharge Instructions 01/12/18 1450 MR#: [id number] Acct: [id number] Name: CLINT FRANCO Rep #: [id number] : 1990 27 From: Dior Galvan MD PCP: Laverne Mitchell DO Status: ADM IN Discharge Diet: No Restrictions Discharge Activity: Return to Normal Activity, May not drive while taking narcotic pain medications., May Shower May resume sexual activity in: 4-6 weeks Call your doctor if your incision/area has: Continuous Slow Oozing, Sudden Increased Bleeding, Increased Pain/ Swelling, Increased Redness, Foul Smelling Discharge Additional Instructions: If you experience any of the following, contact your healthcare provider. * Bleeding that soaks a pad every hour for 2 hours * Fever 100.4 or higher * Unrelieved incision or abdominal pain * Swelling, redness, discharge or bleeding from your incision or episiotomy site * Your incision begins to separate * Problems urinating (including inability to urinate or burning while urinating). * Visual changes * Severe headache * Flu-like symptoms * Pain or redness in one of both of your breasts * Pain, warmth, tenderness or swelling in your legs, especially the calf area * Frequent nausea and vomiting * Symptoms of depression or anxiety If you experience any of the following, call 911 or go to the nearest Emergency Room. * Chest pain * Problems breathing * Seizure activity * Partial or complete paralysis of a body part, slurred speech, weakness or drooping of the face, or a sudden inability to walk or hold your balance Allergies/Adverse Reactions: Allergies No Known Allergies Allergy (Verified 01/08/18 11:22) Medications to take at Discharge Vit No.130/Iron/FA [ Vitamins] 1 ea PO DAILY 11/02/15 Ranitidine HCl [Acid Control] 150 mg PO DAILY 01/10/18 Please Follow Up With: Dior Galvan MD - [phone] When: Call to make an appointment with your doctor in 6 weeks. If you had elevated Blood pressure or 4th degree laceration you will need to be seen in 2 weeks. Primary Care Physician: Laverne Mitchell DO [Primary Care Provider] - Test Results: Test results from this visit will be discussed in further detail at your follow-up appointment, if applicable. 01/12/18 1451 <Electronically signed by Dior Galvan MD> Date Dior Galvan MD CC: Laverne Mitchell DO HISTORY AND PHYSICAL Observed: 01/11/2018 Status: F Source: [place] EXAM 1:35 AM [facility] Medical Records Department [address] [place] [address] History and Physical 01/11/18 0129 MR#: [id number] Acct: [id number] Name: CLINT FRANCO Rep #: [id number] : 1990 27 From: Dior Galvan MD PCP: Laverne Mitchell DO Status: ADM IN Location: [address] - Problem List (1) Full-term PROM with onset of labor within 24 hours of rupture Status: Acute (2) IUD contraception Status: Acute Comment: plan mirena iud PP- No PA required, reference number [id number] (3) screening encounter Status: Acute Comment: declines genetic screening (4) Supervision of normal Status: Acute Qualifiers: Comment: PRR ALVIN 01/15/18 girl Monty Cherry [facility] Sanya Katie History Date of Admission: 01/10/18 Final ALVIN: 01/15/18 Gestational age: 39 Weeks and 3 Days History of this : This is a 27 year-old, at 39 weeks gestational age presents with PROM. Her water broke and she was 4-5 cm, but after 6 hours she had minimal cervical change. she denies any vb and admits good fm. Medical History: Medical History (Last Reviewed 01/08/18 @ 11:19 by Meg Curtis) Environmental allergies Z91.09 GERD (gastroesophageal reflux disease) K21.9 Heart murmur R01.1 Allergies No Known Allergies Allergy (Verified 01/08/18 11:22) Home Medications: Home Medications Vit No.130/Iron/FA [ Vitamins] 1 ea PO DAILY 11/02/15 Ranitidine HCl [Acid Control] 150 mg PO DAILY 01/10/18 Smoking Status: Never smoker Alcohol: None Number of Fetus(es): 1 Heart Tracin moderate variability reactive no decels cat I tracing TOCO Analysis: irregular History Past Pregnancies: Past Pregnancies Pregancy History 2 Elective abortions Hx Para 1 Spontaneous abortions Hx # Term Pregnancies Ectopic pregnancies Hx # Pregnancies Multiple births # of living children Past Pregnancies Del. Date Name GA/Weeks Outcome Route Bth Weight [facility]16 Sanya 38 live - full term 8lbs 1oz Female epidural [place] MIGUELINA Katie Delivery Date: 03/22/16 On 12/11/17 @ 09:30 Meg Curtis No issues during or delivery. Labs: Mom's Problem List Problem Status Onset Code Full-term PROM with onset of labor within 24 hours of rupture Acute O42.02 Mom's Labs AND Results WBC 11.9 H RBC 4.11 L Hgb 12.1 Hct 37.7 MCV 91.7 Course Did the patient receive Yes care? Labs Blood Type: A Current Obstetrical History Gestational Diabetes No Incompetent Cervix No Infertility No IUGR No Macrosomia No Hypertension/Pre-eclampsia No Placenta Previa/Abruption No PTL/PROM No Uterine anomaly No Oligohydramnios No Polyhydramnios No Multiple gestation No Past Medical History Asthma No Diabetes No Hypertension No Heart disease No Mitral valve prolapse No Neurologic/Seizure disorder/ No Migraines Kidney disease No Liver disease No Varicosities No Clotting disorders/Hx of DVT No Thyroid Dysfunction No Other medical diseases No Psychiatric disorders No Major trauma No Abnormal PAP smear No Sleep apnea No Mammogram in the last 2 years No Social History Marital Status: Alleged father katie Hx Smoking No Smoking Status Never smoker Expected Delivery Method: Spontaneous Vaginal Describe any other labor AND delivery plans:: ALVIN Calculator. Estimated Delivery Date 01/15/18. Based on LMP (certain) 04/10/17. Current WG 39w 0d. Number 1. Expected Delivery Route/Plan. . Specific Issue/Plans. FLU VACCINE GIVEN. minichart given: given. tdap vaccine: given. rhogam: na. LARC form signed: signed. labor support person: Katie. pain management: epidural ok. cut cord/dad catch: yes. : yes. PP control planned: IUD Review of Systems Constitutional: Denies: Fever, Malaise Eyes: Denies: Blurred vision, Vision Change HEENT: Denies: Head Aches, Visual Changes Cardiovascular: Denies: Chest Pain, Palpitations Respiratory: Denies: Cough, Shortness of Breath, Wheezing Gastrointestinal: Denies: Abdominal Pain, Diarrhea, Nausea, Vomiting Genitourinary: Denies: Dysuria, Hematuria Gynecological: Reports: Vaginal discharge Musculoskeletal: Denies: Joint Pain, Muscle pain Skin: Denies: Lesions, Rash Neurological: Denies: Blurred vision, Focal weakness, Headaches Psychiatric: Denies: Anxiety, Depression Endocrine: Denies: Heat/ Cold Intolerance Hematologic/ Lymphatic: Denies: Easy Bruising, Easy Bleeding Physical Exam General: Alert, Cooperative, No apparent distress HEENT: Atraumatic, Normocephalic. Negative for: Thyromegaly, Lymphadenopathy Cardiovascular: Regular rate Lungs: Normal air movement Abdomen: Soft, Non Tender, Gravid Neurological: Deep Tendon Reflexes 2+/4 and Symmetrical, Neuro grossly intact. Negative for: Clonus MINE SAFETY DIRECTOR: Normal external genitalia. Negative for: Vulvar lesions Estimated gestational size: Appropriate for gestational size Presentation: Cephalic Cervix Dilation (cm): 4.5 Assessment/Plan All Active Problems (Last Reviewed 01/08/18 @ 11:19 by Meg Curtis) Full-term PROM with onset of labor within 24 hours of rupture (Acute) IUD contraception (Acute) Segmental and somatic dysfunction of pelvic region (Acute) Segmental and somatic dysfunction of sacral region (Acute) Segmental and somatic dysfunction of lumbar region (Acute) Sciatic leg pain (Acute) screening encounter (Acute) Supervision of normal (Acute) This is a 27 year-old, at 39 weeks gestational age presents with PROM Patient presents PROm recommend pitocin per protocol due to minimal cervical change in 6 hours post ROM Pain management: plans epidural. GBS neg. Management of any complications: none I have reviewed the [facility] and made any clinically relevant updates. 01/11/18 0135 <Electronically signed by Dior Galvan MD> Date Dior Galvan MD Cosigner Signature: Date (if applicable) CC: Laverne Mitchell DO; Dior Galvan MD Signed CBC-COMPLETE BLOOD CNT Collected: 01/10/2018 Status: F Source: [place] NO DIFF 11:20 PM [facility] TYPE CODE TESTS RESULT OUT OF RANGE REFERENCE UNITS LAB L100.1000 4.4-11.0 K/mm3 High WBC 11.9 LAB L100.1200 4.2-5.4 M/mm3 Low RBC 4.11 LAB L100.1300 12.0-15.0 g/dl Normal HGB 12.1 LAB L100.1400 37-47 % Normal HCT 37.7 LAB L100.1500 81-99 fL Normal MCV 91.7 LAB L100.1600 27.0-32.0 pg Normal MCH 29.4 LAB L100.1700 32-36 g/gl Normal MCHC 32.1 LAB L100.1810 11.6-14.6 % Normal RDW CV 13.1 LAB L100.1820 35.1-43.9 fl Normal RDW SD 43.7 LAB L100.1900 150-450 K/mm3 Normal PLT 181 LAB L100.2000 6.2-12.0 fl Normal MPV 10.8 Performed By: #### L100.0500 #### [facility] [address] [place], [place], [id number] TYPE AND SCREEN Collected: 01/10/2018 Status: F Source: [place] 11:20 PM [facility] Order Comment: Reason for Type AND Screen/Red Cells: TYPE CODE TESTS RESULT OUT OF RANGE REFERENCE UNITS LAB B10.0800 A Normal BLOOD TYPE GEL POSITIVE LAB B100.4000 Normal Antibody NEGATIVE Screen Performed By: #### B101.7450 #### [facility] [address] [place], [address] (ROM) RUPTURE OF Collected: 01/10/2018 Status: F Source: [place] [facility] 10:35 PM [facility] TYPE CODE TESTS RESULT OUT OF REFERENCE UNITS RANGE LAB L205.1310 Negative High ROM POSITIVE Result Comment: Amniotic fluid present indicates rupture of Membranes. RESULTS CALLED TO [facility] 01/10/18 2301 Ophelia Gomez. REPORT READ BACK BY SAME . Performed By: #### L205.1000 #### [facility] [address] [place], [address] ENVIRONMENTAL TECHNOLOGY PROFESSOR OFFICE VISIT Observed: 01/08/2018 Status: F Source: [place] REPORT 12:05 PM [facility] [address] [place] [place] [address] OFFICE VISIT Date of Service: 01/08/18 MR#: [id number] Acct: [id number] Name: CLINT FRANCO Rep #: [id number] : 1990 Provider: Dior Galvan MD Age/Sex: 27/F Location: [facility] Status: Signed Intake Vital Signs01/08/18 Height 5 ft 5 in 01/08/18 Weight: 223 lb 8 oz 01/08/18 Body Mass Index (BMI) 37.1 01/08/18 Blood Pressure 117/72 Intake Visit Reasons: 38 weeks Appeals Examiner Required: No Is patient in pain?: No Allergies No Known Allergies Allergy (Verified 01/08/18 11:22) Medications Vit No.130/Iron/FA [ Vitamins] 1 ea PO DAILY 11/02/15 [History Confirmed 01/08/18] ranitidine 150 mg tablet 150 mg PO BID #60 tab 09/21/17 [Rx Confirmed 01/08/18] Last Menstral Period: 04/10/17 Zika: Zika virus screening: Negative : No PFSH PFSH Medical History Environmental allergies (Acute) GERD (gastroesophageal reflux disease) (Acute) Heart murmur (Acute) Family History Other Asthma Breast cancer CVA (cerebral vascular accident) Cancer Hypertension Social History Smoking Status: Never smoker alcohol intake: never substance use type: does not use caffeine: Yes what type of physical activity do you participate in: none seatbelt use: always do you feel safe at home: Yes additional social history: TIM BETH Pregancy History 2 Elective abortions Hx Para 1 Spontaneous abortions Past Pregnancies Del. DateName GA/Weeks Outcome Route Bth WeighInfant GeLabor LgtAnesthesiDel LocatProvider FOB t n h a n Delivery Date: 03/22/16 On 12/11/17 @ 09:30 Meg Curtis No issues during or delivery. HPI 38 weeks: Details: CLINT FRANCO is a 27 year old who presents for routine OB visit. OB Visit ALVIN Calculator Estimated Delivery Date 01/15/18 Based on LMP (certain) 04/10/17 Current WG 39w 0d Number 1 Expected Delivery Route/Plan Specific Issue/Plans FLU VACCINE GIVEN minichart given: given tdap vaccine: given rhogam: na LARC form signed: signed labor support person: Katie pain management: epidural ok cut cord/dad catch: yes : yes PP control planned: IUD special requests: [] Initial Weight: 180 lb Date Weight BP Urine PrFHR FuHt Pres MoCTX DilationFetal StVisit NoProviderComments E ot v te GA G Effac lucose ed Visit Notes Visit Date: 01/08/18 no vb lof good fm irregular ctx Dior Galvan MD on 01/08/18 Visit Date: 01/01/18 No LOF,VB. Rare CTX. GREG Dorado on 01/01/18 Visit Date: 12/22/17 no vb lof good fm no regular ctx Dior Galvan MD on 12/22/17 Visit Date: 12/18/17 no vb lof good fm no regular ctx Dior Galvan MD on 12/18/17 Visit Date: 12/11/17 no vb lof good m no regular ctx co back pain Dior Galvan MD on 12/11/17 Visit Date: 11/23/17 no vb lof good fm no regular ctx Dior Galvan MD on 11/23/17 Visit Date: 11/13/17 no vb lof good fm no regular ctx Dior Galvan MD on 11/13/17 Visit Date: 10/19/17 no vb lof good fm no regular ctx. cbc gct tdap today Dior Galvan MD on 10/19/17 Visit Date: 09/21/17 having heartburn no vb cramping Dior Galvan MD on 09/21/17 Visit Date: 08/28/17 Right low back pain into buttocks and down leg. Denies VB, LOF, TAMAR DoradoC on 08/28/17 Visit Date: 07/29/17 Denies cramping, LOF, VB. 2 episodes of dizziness, resolved with rest, juice. Both times at work/[facility] GREG Dorado on 07/29/17 no vb cramping having SI joint pain Dior Galvan MD on 07/03/17 no vb cramping having SI joint pain Dior Galvan MD on 07/03/17 Visit Date: 07/03/17 no vb cramping having SI joint pain Dior Galvan MD on 07/03/17 ACOG First Trimester First Trimester: Desire for , Alcohol, Tobacco Cessation, Illicit/Recreational Drug/Substance Use, Intimate Partner Violence, Barriers to care, Unstable Housing, Communication Barriers, Environmental/Work Hazards, Anticipated Course of Care, Toxoplasmosis Precations, Use of Any medications, Sexual activity, Exercise, Dental Care, Sauna/Hot tub use, Seat Belt use, Childbirth classes/Hospital facilities, , Travel, Indications for US and Screening for Aneuploidy Second Trimester Second Trimester: Signs and Symptoms of Labor, Selecting a care provider, Reproductive Life Planning, Care Planning, Tobacco Cessation, Depression/Anxiety and Intimate Partner Violence Diagnostics Diagnostics Labs Hct 39.4 % (37-47) 10/19/17 Hgb 12.9 g/dl (12.0-15.0) 10/19/17 Glucose 1 Hr 50 gm 112 mg/dL (70-140) 10/19/17 Group B Strep DNA Negative (Negative) 12/18/17 Details: HIV: Urine Culture: Sequential Screen: NIPT Screen: Results [id number] Office Urine Glucose Negative Last Edit by Meg Curtis on 01/08/18 11:30 Office Urine Protein Negative Last Edit by Meg Curtis on 01/08/18 11:30 Assessment AND Plan Problems 1. IUD contraception Z97.5 plan mirena iud PP- No PA required, reference number [id number] 2. screening encounter Z36.9 declines genetic screening 3. Encounter for supervision of other normal in third trimester Z34.83 PRR ALVIN 01/15/18 girl Monty MARHSALL Sanya Aktie Plan movement and labor precautions reviewed. ACOG trimester education reviewed and updated. see problem list details for updated plan management information and see below for orders placed at this visit. GA appropriate handout given. Orders Orders: Plan Detail Goals Decrease inflammation and pain Coding Level of Care Code OB Routine Diagnoses IUD contraception Z97.5 screening encounter Z36.9 Encounter for supervision of other normal in third trimester Z34.83 Normal : other normal Trimester: third trimester 01/08/18 1205 <Electronically signed by Dior Galvan MD> Date Dior Galvan MD Cosigner Signature: Date (if applicable) CC: ENVIRONMENTAL TECHNOLOGY PROFESSOR OFFICE VISIT Observed: 01/01/2018 Status: F Source: [place] REPORT 8:18 AM [facility] [address] [place] [address] OFFICE VISIT Date of Service: 01/01/18 MR#: [id number] Acct: [id number] Name: CLINT RFANCO Rep #: [id number] : 1990 Provider: TRACIE Enriquez Age/Sex: 27/F Location: [facility] Status: Signed Intake Vital Signs01/01/18 Height 5 ft 5 in 01/01/18 Weight: 223 lb 01/01/18 Body Mass Index (BMI) 37.0 01/01/18 Blood Pressure 141/75 Intake Visit Reasons: 37 weeks Appeals Examiner Required: No Is patient in pain?: No Allergies No Known Allergies Allergy (Verified 01/01/18 08:07) Medications Vit No.130/Iron/FA [ Vitamins] 1 ea PO DAILY 11/02/15 [History Confirmed 01/01/18] ranitidine 150 mg tablet 150 mg PO BID #60 tab 09/21/17 [Rx Confirmed 01/01/18] Last Menstral Period: 04/10/17 Zika: Zika virus screening: Negative : No PFSH PFSH Medical History Environmental allergies (Acute) GERD (gastroesophageal reflux disease) (Acute) Heart murmur (Acute) Family History Other Asthma Breast cancer CVA (cerebral vascular accident) Cancer Hypertension Social History Smoking Status: Never smoker alcohol intake: never substance use type: does not use caffeine: Yes what type of physical activity do you participate in: none seatbelt use: always do you feel safe at home: Yes additional social history: TIM BETH Pregancy History 2 Elective abortions Hx Para 1 Spontaneous abortions Past Pregnancies Del. DateName GA/Weeks Outcome Route Bth WeighInfant GeLabor LgtAnesthesiDel LocatProvider FOB t n h a n Delivery Date: 03/22/16 On 12/11/17 @ 09:30 Meg Curtis No issues during or delivery. HPI 37 weeks: Details: CLINT FRANCO is a 27 year old who presents for routine OB visit. OB Visit ALVIN Calculator Estimated Delivery Date 01/15/18 Based on LMP (certain) 04/10/17 Current WG 38w 0d Number 1 Expected Delivery Route/Plan Specific Issue/Plans FLU VACCINE GIVEN minichart given: given tdap vaccine: given rhogam: na LARC form signed: signed labor support person: Katie pain management: epidural ok cut cord/dad catch: yes : yes PP control planned: IUD special requests: [] Initial Weight: 180 lb Date Weight BP Urine PrFHR FuHt Pres MoCTX DilationFetal StVisit NoProviderComments E ot v te GA G Effac lucose ed Visit Notes Visit Date: 01/01/18 No LOF,VB. Rare CTX. GREG Dorado on 01/01/18 Visit Date: 12/22/17 no vb lof good fm no regular ctx Dior Galvan MD on 12/22/17 Visit Date: 12/18/17 no vb lof good fm no regular ctx Dior Galvan MD on 12/18/17 Visit Date: 12/11/17 no vb lof good m no regular ctx co back pain Dior Galvan MD on 12/11/17 Visit Date: 11/23/17 no vb lof good fm no regular ctx Dior Galvan MD on 11/23/17 Visit Date: 11/13/17 no vb lof good fm no regular ctx Dior Galvan MD on 11/13/17 Visit Date: 10/19/17 no vb lof good fm no regular ctx. cbc gct tdap today Dior Galvan MD on 10/19/17 Visit Date: 09/21/17 having heartburn no vb cramping Dior Galvan MD on 09/21/17 Visit Date: 08/28/17 Right low back pain into buttocks and down leg. Denies VB, LOF, GREG Dorado on 08/28/17 Visit Date: 07/29/17 Denies cramping, LOF, VB. 2 episodes of dizziness, resolved with rest, juice. Both times at work/lab-[facility] GREG Dorado on 07/29/17 no vb cramping having SI joint pain Dior Galvan MD on 07/03/17 no vb cramping having SI joint pain Dior Galvan MD on 07/03/17 Visit Date: 07/03/17 no vb cramping having SI joint pain Dior Galvan MD on 07/03/17 ACOG First Trimester First Trimester: Desire for , Alcohol, Tobacco Cessation, Illicit/Recreational Drug/Substance Use, Intimate Partner Violence, Barriers to care, Unstable Housing, Communication Barriers, Environmental/Work Hazards, Anticipated Course of Care, Toxoplasmosis Precations, Use of Any medications, Sexual activity, Exercise, Dental Care, Sauna/Hot tub use, Seat Belt use, Childbirth classes/Hospital facilities, , Travel, Indications for US and Screening for Aneuploidy Second Trimester Second Trimester: Signs and Symptoms of Labor, Selecting a care provider, Reproductive Life Planning, Care Planning, Tobacco Cessation, Depression/Anxiety and Intimate Partner Violence Diagnostics Diagnostics Labs Hct 39.4 % (37-47) 10/19/17 Hgb 12.9 g/dl (12.0-15.0) 10/19/17 Glucose 1 Hr 50 gm 112 mg/dL (70-140) 10/19/17 Group B Strep DNA Negative (Negative) 12/18/17 Details: HIV: Urine Culture: Sequential Screen: NIPT Screen: Results [id number] Office Urine Glucose Negative Last Edit by Meg Curtis on 01/01/18 08:12 Office Urine Protein Negative Last Edit by Meg Curtis on 01/01/18 08:12 Assessment AND Plan Problems 1. Encounter for supervision of other normal in third trimester Z34.83 PRR ALVIN 01/15/18 girl [facility] Sanya Katie 2. screening encounter Z36.9 declines genetic screening 3. IUD contraception Z97.5 plan mirena iud PP- No PA required, reference number [id number] 4. 38 weeks gestation of Z3A.38 Plan Orders placed: none Reviewed of labor precautions, movement/kick counts ACOG trimester education reviewed and updated See problem list details for updated plan of care Gestational age appropriate handout given RTO: 1 week Orders Orders: Plan Detail Goals Decrease inflammation and pain Coding Level of Care Code OB Routine Diagnoses Encounter for supervision of other normal in third trimester Z34.83 Normal : other normal Trimester: third trimester screening encounter Z36.9 IUD contraception Z97.5 38 weeks gestation of Z3A.38 01/01/18817 <Electronically signed by Stefanie GARZA> Date Stefanie Enriquez ASSURANCE OFFICER-C Cosigner Signature: Date (if applicable) CC: ENVIRONMENTAL TECHNOLOGY PROFESSOR OFFICE VISIT Observed: 12/22/2017 Status: F Source: [place] REPORT 8:48 AM [facility] [place] [address] [place] [address] OFFICE VISIT Date of Service: 12/22/17 MR#: [id number] Acct: [id number] Name: FRANCOCLINT L Rep #: [id number] : 1990 Provider: Dior Galvan MD Age/Sex: 27/F Location: [facility] Status: Signed Intake Vital Signs12/22/17 Height 5 ft 5 in 12/22/17 Weight: 221 lb 4 oz 12/22/17 Body Mass Index (BMI) 36.8 12/22/17 Blood Pressure 128/81 Intake Visit Reasons: est ob 36 weeks Appeals Examiner Required: No Is patient in pain?: No Allergies No Known Allergies Allergy (Verified 12/22/17 08:22) Medications Vit No.130/Iron/FA [ Vitamins] 1 ea PO DAILY 11/02/15 [History Confirmed 12/22/17] ranitidine 150 mg tablet 150 mg PO BID #60 tab 09/21/17 [Rx Confirmed 12/22/17] Last Menstral Period: 04/10/17 Zika: Zika virus screening: Negative : No PFSH PFSH Medical History Environmental allergies (Acute) GERD (gastroesophageal reflux disease) (Acute) Heart murmur (Acute) Family History Other Asthma Breast cancer CVA (cerebral vascular accident) Cancer Hypertension Social History Smoking Status: Never smoker alcohol intake: never substance use type: does not use caffeine: Yes what type of physical activity do you participate in: none seatbelt use: always do you feel safe at home: Yes additional social history: TIM BETH Pregancy History 2 Elective abortions Hx Para 1 Spontaneous abortions Past Pregnancies Del. DateName GA/Weeks Outcome Route Bth WeighInfant GeLabor LgtAnesthesiDel LocatProvider FOB t n h a n Delivery Date: 03/22/16 On 12/11/17 @ 09:30 Meg Curtis No issues during or delivery. HPI est ob 36 weeks: Details: CLINT FRANCO is a 27 year old who presents for routine OB visit. OB Visit ALVIN Calculator Estimated Delivery Date 01/15/18 Based on LMP (certain) 04/10/17 Current WG 36w 4d Number 1 Expected Delivery Route/Plan Specific Issue/Plans FLU VACCINE GIVEN minichart given: given tdap vaccine: given rhogam: na LARC form signed: signed labor support person: Katie pain management: epidural ok cut cord/dad catch: yes : yes PP control planned: [] special requests: [] Initial Weight: 180 lb Date Weight BP Urine PrFHR FuHt Pres MoCTX DilationFetal StVisit NoProviderComments E ot v te GA G Effac lucose ed Visit Notes Visit Date: 12/22/17 no vb lof good fm no regular ctx Dior Galvan MD on 12/22/17 Visit Date: 12/18/17 no vb lof good fm no regular ctx Dior Galvan MD on 12/18/17 Visit Date: 12/11/17 no vb lof good m no regular ctx co back pain Dior Galvan MD on 12/11/17 Visit Date: 11/23/17 no vb lof good fm no regular ctx Dior Galvan MD on 11/23/17 Visit Date: 11/13/17 no vb lof good fm no regular ctx Dior Galvan MD on 11/13/17 Visit Date: 10/19/17 no vb lof good fm no regular ctx. cbc gct tdap today Dior Galvan MD on 10/19/17 Visit Date: 09/21/17 having heartburn no vb cramping Dior Galvan MD on 09/21/17 Visit Date: 08/28/17 Right low back pain into buttocks and down leg. Denies VB, LOF, TAMAR DoradoC on 08/28/17 Visit Date: 07/29/17 Denies cramping, LOF, VB. 2 episodes of dizziness, resolved with rest, juice. Both times at work/lab-[facility] GREG Dorado on 07/29/17 no vb cramping having SI joint pain Dior Galvan MD on 07/03/17 no vb cramping having SI joint pain Dior Galvan MD on 07/03/17 Visit Date: 07/03/17 no vb cramping having SI joint pain Dior Galvan MD on 07/03/17 ACOG First Trimester First Trimester: Desire for , Alcohol, Tobacco Cessation, Illicit/Recreational Drug/Substance Use, Intimate Partner Violence, Barriers to care, Unstable Housing, Communication Barriers, Environmental/Work Hazards, Anticipated Course of Care, Toxoplasmosis Precations, Use of Any medications, Sexual activity, Exercise, Dental Care, Sauna/Hot tub use, Seat Belt use, Childbirth classes/Hospital facilities, , Travel, Indications for US and Screening for Aneuploidy Second Trimester Second Trimester: Signs and Symptoms of Labor, Selecting a care provider, Reproductive Life Planning, Care Planning, Tobacco Cessation, Depression/Anxiety and Intimate Partner Violence Diagnostics Diagnostics Labs Hct 39.4 % (37-47) 10/19/17 Hgb 12.9 g/dl (12.0-15.0) 10/19/17 Glucose 1 Hr 50 gm 112 mg/dL (70-140) 10/19/17 Group B Strep DNA Negative (Negative) 12/18/17 Details: HIV: Urine Culture: Sequential Screen: NIPT Screen: Results [id number] Office Urine Glucose Negative Last Edit by Jane Cope on 12/22/17 08:26 Office Urine Protein Negative Last Edit by Jane Cope on 12/22/17 08:26 Assessment AND Plan Problems 1. screening encounter Z36.9 declines genetic screening 2. IUD contraception Z97.5 plan mirena iud PP- No PA required, reference number [id number] 3. Encounter for supervision of other normal in third trimester Z34.83 PRR ALVIN 01/15/18 girl Monty Segundo Katie Plan movement and labor precautions reviewed. ACOG trimester education reviewed and updated. see problem list details for updated plan management information and see below for orders placed at this visit. GA appropriate handout given. Orders Orders: Plan Detail Goals Decrease inflammation and pain Coding Level of Care Code OB Routine Diagnoses screening encounter Z36.9 IUD contraception Z97.5 Encounter for supervision of other normal in third trimester Z34.83 Normal : other normal Trimester: third trimester 12/22/17 0848 <Electronically signed by Dior Galvan MD> Date Dior Galvan MD Cosigner Signature: Date (if applicable) CC: GROUP B STREP DNA Collected: 12/18/2017 Status: F Source: [place]IE BY PCR 4:18 PM [facility] Order Comment: Source: Vaginal-Rectal TYPE CODE TESTS RESULT OUT OF RANGE REFERENCE UNITS LAB L8200.0100 Negative Normal GBS TEST Negative RESULT Performed By: #### [id number] #### [place] [facility] [place] [place] [facility] [address] [place], [place], [address] ENVIRONMENTAL TECHNOLOGY PROFESSOR OFFICE VISIT Observed: 12/18/2017 Status: F Source: [place] REPORT 1:50 PM [facility] [address] [place] [address] OFFICE VISIT Date of Service: 12/18/17 MR#: [id number] Acct: [id number] Name: CLINT FRANCO Rep #: [id number] : 1990 Provider: Dior Galvan MD Age/Sex: 27/F Location: [facility] Status: Signed Intake Vital Signs12/18/17 Height 5 ft 5 in 12/18/17 Weight: 221 lb 8 oz 12/18/17 Body Mass Index (BMI) 36.8 12/18/17 Blood Pressure 111/65 Intake Visit Reasons: OB Appeals Examiner Required: No Is patient in pain?: No Allergies No Known Allergies Allergy (Verified 12/18/17 13:26) Medications Vit No.130/Iron/FA [ Vitamins] 1 ea PO DAILY 11/02/15 [History Confirmed 12/18/17] ranitidine 150 mg tablet 150 mg PO BID #60 tab 09/21/17 [Rx Confirmed 12/18/17] Last Menstral Period: 04/10/17 Zika: Zika virus screening: Negative : No PFSH PFSH Medical History Environmental allergies (Acute) GERD (gastroesophageal reflux disease) (Acute) Heart murmur (Acute) Family History Other Asthma Breast cancer CVA (cerebral vascular accident) Cancer Hypertension Social History Smoking Status: Never smoker alcohol intake: never substance use type: does not use caffeine: Yes what type of physical activity do you participate in: none seatbelt use: always do you feel safe at home: Yes additional social history: TIM BETH Pregancy History 2 Elective abortions Hx Para 1 Spontaneous abortions Past Pregnancies Del. DateName GA/Weeks Outcome Route Bth WeighInfant GeLabor LgtAnesthesiDel LocatProvider FOB t n h a n Delivery Date: 03/22/16 On 12/11/17 @ 09:30 Meg Curtis No issues during or delivery. HPI OB: Details: CLINT FRANCO is a 27 year old who presents for routine OB visit. OB Visit ALVIN Calculator Estimated Delivery Date 01/15/18 Based on LMP (certain) 04/10/17 Current WG 36w 0d Number 1 Expected Delivery Route/Plan Specific Issue/Plans FLU VACCINE GIVEN minichart given: given tdap vaccine: given rhogam: na LARC form signed: signed labor support person: Katie pain management: epidural ok cut cord/dad catch: yes : yes PP control planned: [] special requests: [] Initial Weight: 180 lb Date Weight BP Urine PFHR FuHt Pres MCTX DilatioFetal SVisit NProvideComment rot ov n t ote r s EGA Ef Gluco faced se 07/04/1179 lb 111/67 160 no vb cSM 8 (+0 oz) ramping 12 having w 0d SI arturo nt pain Visit Notes Visit Date: 12/18/17 no vb lof good fm no regular ctx Dior Galvan MD on 12/18/17 Visit Date: 12/11/17 no vb lof good m no regular ctx co back pain Dior Galvan MD on 12/11/17 Visit Date: 11/23/17 no vb lof good fm no regular ctx Dior Galvan MD on 11/23/17 Visit Date: 11/13/17 no vb lof good fm no regular ctx Dior Galvan MD on 11/13/17 Visit Date: 10/19/17 no vb lof good fm no regular ctx. cbc gct tdap today Dior Galvan MD on 10/19/17 Visit Date: 09/21/17 having heartburn no vb cramping Dior Galvan MD on 09/21/17 Visit Date: 08/28/17 Right low back pain into buttocks and down leg. Denies VB, LOF, GREG Dorado on 08/28/17 Visit Date: 07/29/17 Denies cramping, LOF, VB. 2 episodes of dizziness, resolved with rest, juice. Both times at work/lab-[facility] GREG Dorado on 07/29/17 no vb cramping having SI joint pain Dior Galvan MD on 07/03/17 no vb cramping having SI joint pain Dior Galvan MD on 07/03/17 Visit Date: 07/03/17 no vb cramping having SI joint pain Dior Galvan MD on 07/03/17 ACOG First Trimester First Trimester: Desire for , Alcohol, Tobacco Cessation, Illicit/Recreational Drug/Substance Use, Intimate Partner Violence, Barriers to care, Unstable Housing, Communication Barriers, Environmental/Work Hazards, Anticipated Course of Care, Toxoplasmosis Precations, Use of Any medications, Sexual activity, Exercise, Dental Care, Sauna/Hot tub use, Seat Belt use, Childbirth classes/Hospital facilities, , Travel, Indications for US and Screening for Aneuploidy Second Trimester Second Trimester: Signs and Symptoms of Labor, Selecting a care provider, Reproductive Life Planning, Care Planning, Tobacco Cessation, Depression/Anxiety and Intimate Partner Violence Diagnostics Diagnostics Labs Hct 39.4 % (37-47) 10/19/17 Hgb 12.9 g/dl (12.0-15.0) 10/19/17 Obstetrics Ultrasound 08/28/17 Glucose 1 Hr 50 gm 112 mg/dL (70-140) 10/19/17 Details: HIV: Urine Culture: Sequential Screen: NIPT Screen: Results [id number] Office Urine Glucose Negative Last Edit by Meg Curits on 12/18/17 13:29 Office Urine Protein Negative Last Edit by Meg Curtis on 12/18/17 13:29 Assessment AND Plan Problems 1. Encounter for supervision of other normal in third trimester Z34.83 PRR ALVIN 01/15/18 girl [facility] Sanya Katie 2. screening encounter Z36.9 declines genetic screening 3. IUD contraception Z97.5 plan mirena iud PP- No PA required, reference number [id number] Plan movement and labor precautions reviewed. ACOG trimester education reviewed and updated. see problem list details for updated plan management information and see below for orders placed at this visit. GA appropriate handout given. Orders Orders: Plan Detail Goals Decrease inflammation and pain Coding Level of Care Code OB Routine Diagnoses Encounter for supervision of other normal in third trimester Z34.83 Normal : other normal Trimester: third trimester screening encounter Z36.9 IUD contraception Z97.5 12/18/17 1350 <Electronically signed by Dior Galvan MD> Date Dior Galvan MD Cosigner Signature: Date (if applicable) CC: Observed: 12/18/2017 Status: F Source: RONNIE CULTURE, GROUP B 12:00 AM [facility] MANJIT Culture Group B Beta Streptococcus is not isolated. Performed By: #### [id number] #### [facility] [address] [place], [address] ENVIRONMENTAL TECHNOLOGY PROFESSOR OFFICE VISIT Observed: 12/11/2017 Status: F Source: RONNIE REPORT 9:50 AM [facility] REPOSIT[facility] [address] [place] [address] OFFICE VISIT Date of Service: 12/11/17 MR#: [id number] Acct: [id number] Name: CLINT FRANCO Rep #: [id number] : 1990 Provider: Dior Galvan MD Age/Sex: 27/F Location: [facility] Status: Signed Intake Vital Signs12/11/17 Height 5 ft 5 in 12/11/17 Weight: 219 lb 8 oz 12/11/17 Body Mass Index (BMI) 36.5 12/11/17 Blood Pressure 128/71 Intake Visit Reasons: est ob 34 weeks Appeals Examiner Required: No Accompanied by: Is patient in pain?: No Allergies No Known Allergies Allergy (Verified 12/11/17 09:22) Medications Vit No.130/Iron/FA [ Vitamins] 1 ea PO DAILY 11/02/15 [History Confirmed 12/11/17] ranitidine 150 mg tablet 150 mg PO BID #60 tab 09/21/17 [Rx Confirmed 12/11/17] Last Menstral Period: 04/10/17 Zika: Zika virus screening: Negative : No PFSH PFSH Medical History Environmental allergies (Acute) GERD (gastroesophageal reflux disease) (Acute) Heart murmur (Acute) Family History Other Asthma Breast cancer CVA (cerebral vascular accident) Cancer Hypertension Social History Smoking Status: Never smoker alcohol intake: never substance use type: does not use caffeine: Yes what type of physical activity do you participate in: none seatbelt use: always do you feel safe at home: Yes additional social history: RN PATTI BETH Pregancy History 2 Elective abortions Hx Para 1 Spontaneous abortions Past Pregnancies Del. DateName GA/Weeks Outcome Route Bth WeighInfant GeLabor LgtAnesthesiDel LocatProvider FOB t n h a n Delivery Date: 03/22/16 On 12/11/17 @ 09:30 Meg Curtis No issues during or delivery. HPI est ob 34 weeks: Details: CLINT FRANCO is a 27 year old who presents for routine OB visit. OB Visit ALVIN Calculator Estimated Delivery Date 01/15/18 Based on LMP (certain) 04/10/17 Current WG 35w 0d Number 1 Expected Delivery Route/Plan Specific Issue/Plans FLU VACCINE GIVEN minichart given: given tdap vaccine: given rhogam: na LARC form signed: signed labor support person: Katie pain management: epidural ok cut cord/dad catch: yes : yes PP control planned: [] special requests: [] Initial Weight: 180 lb Date Weight BP Urine PFHR FuHt Pres MCTX DilatioFetal SVisit NProvideComment rot ov n t ote r s EGA Ef Gluco faced se 07/04/1179 lb 111/67 160 no vb cSM 8 (+0 oz) ramping 12 having w 0d SI arturo nt pain Visit Notes Visit Date: 12/11/17 no vb lof good m no regular ctx co back pain Dior Galvan MD on 12/11/17 Visit Date: 11/23/17 no vb lof good fm no regular ctx Dior Galvan MD on 11/23/17 Visit Date: 11/13/17 no vb lof good fm no regular ctx Dior Galvan MD on 11/13/17 Visit Date: 10/19/17 no vb lof good fm no regular ctx. cbc gct tdap today Dior Galvan MD on 10/19/17 Visit Date: 09/21/17 having heartburn no vb cramping Dior Galvan MD on 09/21/17 Visit Date: 08/28/17 Right low back pain into buttocks and down leg. Denies VB, LOF, GREG Dorado on 08/28/17 Visit Date: 07/29/17 Denies cramping, LOF, VB. 2 episodes of dizziness, resolved with rest, juice. Both times at work/lab-[facility] GREG Dorado on 07/29/17 no vb cramping having SI joint pain Dior Galvan MD on 07/03/17 no vb cramping having SI joint pain Dior Galvan MD on 07/03/17 Visit Date: 07/03/17 no vb cramping having SI joint pain Dior Galvan MD on 07/03/17 ACOG First Trimester First Trimester: Desire for , Alcohol, Tobacco Cessation, Illicit/Recreational Drug/Substance Use, Intimate Partner Violence, Barriers to care, Unstable Housing, Communication Barriers, Environmental/Work Hazards, Anticipated Course of Care, Toxoplasmosis Precations, Use of Any medications, Sexual activity, Exercise, Dental Care, Sauna/Hot tub use, Seat Belt use, Childbirth classes/Hospital facilities, , Travel, Indications for US and Screening for Aneuploidy Second Trimester Second Trimester: Signs and Symptoms of Labor, Selecting a care provider, Reproductive Life Planning, Care Planning, Tobacco Cessation, Depression/Anxiety and Intimate Partner Violence Diagnostics Diagnostics Labs Hct 39.4 % (37-47) 10/19/17 Hgb 12.9 g/dl (12.0-15.0) 10/19/17 Obstetrics Ultrasound 08/28/17 Glucose 1 Hr 50 gm 112 mg/dL (70-140) 10/19/17 Details: HIV: Urine Culture: Sequential Screen: NIPT Screen: Results [id number] Office Urine Glucose Negative Last Edit by Meg Curtis on 12/11/17 09:34 Office Urine Protein Negative Last Edit by Meg Curtis on 12/11/17 09:34 Assessment AND Plan Problems 1. screening encounter Z36.9 declines genetic screening 2. IUD contraception Z97.5 plan mirena iud PP- No PA required, reference number [id number] 3. Encounter for supervision of other normal in third trimester Z34.83 PRR ALVIN 01/15/18 girl [facility] Sanya Katie Plan movement and labor precautions reviewed. ACOG trimester education reviewed and updated. see problem list details for updated plan management information and see below for orders placed at this visit. GA appropriate handout given. Orders Orders: Plan Detail Goals Decrease inflammation and pain Coding Level of Care Code OB Routine Diagnoses screening encounter Z36.9 IUD contraception Z97.5 Encounter for supervision of other normal in third trimester Z34.83 Normal : other normal Trimester: third trimester 12/11/17 0950 <Electronically signed by Dior Galvan MD> Date Dior Galvan MD Cosigner Signature: Date (if applicable) CC: ENVIRONMENTAL TECHNOLOGY PROFESSOR OFFICE VISIT Observed: 11/23/2017 Status: F Source: [place] REPORT 9:45 AM [facility] [address] [place] [address]. [address] [place] [address] OFFICE VISIT Date of Service: 11/23/17 MR#: [id number] Acct: [id number] Name: CLINT FRANCO Rep #: [id number] : 1990 Provider: Dior Galvan MD Age/Sex: 27/F Location: [facility] Status: Signed Intake Vital Signs11/23/17 Height 5 ft 5 in 11/23/17 Weight: 216 lb 4 oz 11/23/17 Body Mass Index (BMI) 35.9 11/23/17 Blood Pressure 113/74 Intake Visit Reasons: est ob 32 weeks Appeals Examiner Required: No Is patient in pain?: No Allergies No Known Allergies Allergy (Verified 11/23/17 09:23) Medications Vit No.130/Iron/FA [ Vitamins] 1 ea PO DAILY 11/02/15 [History Confirmed 11/23/17] ranitidine 150 mg tablet 150 mg PO BID #60 tab 09/21/17 [Rx Confirmed 11/23/17] Last Menstral Period: 12/08/17 Zika: Zika virus screening: Negative : No PFSH PFSH Medical History Environmental allergies (Acute) GERD (gastroesophageal reflux disease) (Acute) Heart murmur (Acute) Family History Other Asthma Breast cancer CVA (cerebral vascular accident) Cancer Hypertension Social History Smoking Status: Never smoker alcohol intake: never substance use type: does not use caffeine: Yes what type of physical activity do you participate in: none seatbelt use: always do you feel safe at home: Yes additional social history: RN PATTI BETH Pregancy History 2 Elective abortions Hx Para 1 Spontaneous abortions Past Pregnancies Del. DatName GA/WeeksOutcome [facility] LgAnestheSCel LocaProviderFOB e ht en ia tn Unknown [address] [place]IGUEL[place] rling th - ful l term HPI est ob 32 weeks: Details: CLINT FRANCO is a 27 year old who presents for routine OB visit. OB Visit ALVIN Calculator Estimated Delivery Date 01/15/18 Based on LMP (certain) 04/10/17 Current WG 32w 3d Number 1 Expected Delivery Route/Plan Specific Issue/Plans FLU VACCINE GIVEN minichart given: given tdap vaccine: given rhogam: na LARC form signed: signed labor support person: Katie pain management: epidural ok cut cord/dad catch: yes : yes PP control planned: [] special requests: [] Initial Weight: 180 lb Date Weight BP Urine PrFHR FuHt Pres MoCTX DilationFetal StVisit NoProviderComments E ot v te GA G Effac lucose ed Visit Notes Visit Date: 11/23/17 no vb lof good fm no regular ctx Dior Galvan MD on 11/23/17 Visit Date: 11/13/17 no vb lof good fm no regular ctx Dior Galvan MD on 11/13/17 Visit Date: 10/19/17 no vb lof good fm no regular ctx. cbc gct tdap today Dior Galvan MD on 10/19/17 Visit Date: 09/21/17 having heartburn no vb cramping Dior Galvan MD on 09/21/17 Visit Date: 08/28/17 Right low back pain into buttocks and down leg. Denies VB, LOF, GREG Dorado on 08/28/17 Visit Date: 07/29/17 Denies cramping, LOF, VB. 2 episodes of dizziness, resolved with rest, juice. Both times at work/lab-[facility] GREG Dorado on 07/29/17 no vb cramping having SI joint pain Dior Galvan MD on 07/03/17 no vb cramping having SI joint pain Dior Galvan MD on 07/03/17 Visit Date: 07/03/17 no vb cramping having SI joint pain Dior Galvan MD on 07/03/17 ACOG First Trimester First Trimester: Desire for , Alcohol, Tobacco Cessation, Illicit/Recreational Drug/Substance Use, Intimate Partner Violence, Barriers to care, Unstable Housing, Communication Barriers, Environmental/Work Hazards, Anticipated Course of Care, Toxoplasmosis Precations, Use of Any medications, Sexual activity, Exercise, Dental Care, Sauna/Hot tub use, Seat Belt use, Childbirth classes/Hospital facilities, , Travel, Indications for US and Screening for Aneuploidy Second Trimester Second Trimester: Signs and Symptoms of Labor, Selecting a care provider, Reproductive Life Planning, Care Planning, Tobacco Cessation, Depression/Anxiety and Intimate Partner Violence Diagnostics Diagnostics Labs Blood Type A POSITIVE 06/02/17 Antibody Screen NEGATIVE 06/02/17 Hct 39.4 % (37-47) 10/19/17 Hgb 12.9 g/dl (12.0-15.0) 10/19/17 Obstetrics Ultrasound 08/28/17 Rubella IgG Antibody 251.4 IU/mL 06/02/17 RPR NONREACTIVE (NONREACTIVE) 06/02/17 Hep Bs Antigen Negative (Negative) 06/02/17 Chlam trachomat DNA PCR Negative (Negative) 06/02/17 N.gonorrhoeae DNA (PCR) Negative (Negative) 06/02/17 Glucose 1 Hr 50 gm 112 mg/dL (70-140) 10/19/17 Miscellaneous Test 06/02/17 Details: HIV: Urine Culture: Sequential Screen: NIPT Screen: Results [id number] Office Urine Glucose Negative Last Edit by Meg Curtis on 11/23/17 09:24 Office Urine Protein Negative Last Edit by Meg Curtis on 11/23/17 09:24 Assessment AND Plan Problems 1. IUD contraception Z97.5 plan mirena iud PP 2. screening encounter Z36.9 declines genetic screening 3. Encounter for supervision of other normal in second trimester Z34.82 PRR ALVIN 01/15/18 girl Monty Segundo Katie Plan Orders placed: none movement and labor precautions reviewed. ACOG trimester education reviewed and updated. see problem list details for updated plan management information. [place] appropriate handout given. Orders Orders: Plan Detail Goals Decrease inflammation and pain Coding Level of Care Code OB Routine Diagnoses IUD contraception Z97.5 screening encounter Z36.9 Encounter for supervision of other normal in second trimester Z34.82 Normal : other normal Trimester: second trimester 11/23/17 0945 <Electronically signed by Dior Galvan MD> Date Dior Galvan MD [facility] Signature: Date (if applicable) CC: ENVIRONMENTAL TECHNOLOGY PROFESSOR OFFICE VISIT Observed: 11/13/2017 Status: F Source: RONNIE REPORT 8:44 AM [facility] [address] [place] [address] OFFICE VISIT Date of Service: 11/13/17 MR#: [id number] Acct: [id number] Name: JOANCLINT Dulce Maria Rep #: [id number] : 1990 Provider: Dior Galvan MD Age/Sex: 27/F Location: [facility] Status: Signed Intake Vital Signs11/13/17 Height 5 ft 5 in 11/13/17 Weight: 212 lb 4 oz 11/13/17 Body Mass Index (BMI) 35.3 11/13/17 Blood Pressure 131/82 Intake Visit Reasons: est ob 30 weeks Is patient in pain?: No Allergies No Known Allergies Allergy (Verified 11/13/17 08:24) Medications Vit No.130/Iron/FA [ Vitamins] 1 ea PO DAILY 11/02/15 [History Confirmed 11/13/17] ranitidine 150 mg tablet 150 mg PO BID #60 tab 09/21/17 [Rx Confirmed 11/13/17] Last Menstral Period: 04/10/17 Zika: Zika virus screening: Negative : No PFSH PFSH Medical History Environmental allergies (Acute) GERD (gastroesophageal reflux disease) (Acute) Heart murmur (Acute) Family History Other Asthma Breast cancer CVA (cerebral vascular accident) Cancer Hypertension Social History Smoking Status: Never smoker alcohol intake: never substance use type: does not use caffeine: Yes what type of physical activity do you participate in: none seatbelt use: always do you feel safe at home: Yes additional social history: TIM BETH Pregancy History 2 Elective abortions Hx Para 1 Spontaneous abortions Past Pregnancies Del. DatName GA/WeeksOutcome Route [facility] LocaProviderFOB e ht en ia tn Unknown [address] [place] MIGUELINA rling th - ful l term HPI est ob 30 weeks: Details: CLINT FRANCO is a 27 year old who presents for routine OB visit. OB Visit ALVIN Calculator Estimated Delivery Date 01/15/18 Based on LMP (certain) 04/10/17 Current WG 31w 0d Number 1 Expected Delivery Route/Plan Specific Issue/Plans FLU VACCINE GIVEN minichart given: given tdap vaccine: given rhogam: na LARC form signed: [] labor support person: Katie pain management: epidural ok cut cord/dad catch: yes : yes PP control planned: [] special requests: [] Initial Weight: 180 lb Date Weight BP Urine PrFHR FuHt Pres MoCTX DilationFetal StVisit NoProviderComments E ot v te [place] G Effac lucose ed Visit Notes Visit Date: 11/13/17 no vb lof good fm no regular ctx Dior Galvan MD on 11/13/17 Visit Date: 10/19/17 no vb lof good fm no regular ctx. cbc gct tdap today Dior Galvan MD on 10/19/17 Visit Date: 09/21/17 having heartburn no vb cramping Dior Galvan MD on 09/21/17 Visit Date: 08/28/17 Right low back pain into buttocks and down leg. Denies VB, LOF, TAMAR DoradoC on 08/28/17 Visit Date: 07/29/17 Denies cramping, LOF, VB. 2 episodes of dizziness, resolved with rest, juice. Both times at work/lab-[facility] GREG Dorado on 07/29/17 no vb cramping having SI joint pain Dior Galvan MD on 07/03/17 no vb cramping having SI joint pain Dior Galvan MD on 07/03/17 Visit Date: 07/03/17 no vb cramping having SI joint pain Dior Galvan MD on 07/03/17 ACOG First Trimester First Trimester: Desire for , Alcohol, Tobacco Cessation, Illicit/Recreational Drug/Substance Use, Intimate Partner Violence, Barriers to care, Unstable Housing, Communication Barriers, Environmental/Work Hazards, Anticipated Course of Care, Toxoplasmosis Precations, Use of Any medications, Sexual activity, Exercise, Dental Care, Sauna/Hot tub use, Seat Belt use, Childbirth classes/Hospital facilities, , Travel, Indications for US and Screening for Aneuploidy Second Trimester Second Trimester: Signs and Symptoms of Labor, Selecting a care provider, Reproductive Life Planning (undecided), Care Planning (12 weeks), Tobacco Cessation, Depression/Anxiety and Intimate Partner Violence Diagnostics Diagnostics Labs Blood Type A POSITIVE 06/02/17 Antibody Screen NEGATIVE 06/02/17 Hct 39.4 % (37-47) 10/19/17 Hgb 12.9 g/dl (12.0-15.0) 10/19/17 Obstetrics Ultrasound 08/28/17 Rubella IgG Antibody 251.4 IU/mL 06/02/17 RPR NONREACTIVE (NONREACTIVE) 06/02/17 Hep Bs Antigen Negative (Negative) 06/02/17 Chlam trachomat DNA PCR Negative (Negative) 06/02/17 N.gonorrhoeae DNA (PCR) Negative (Negative) 06/02/17 Glucose 1 Hr 50 gm 112 mg/dL (70-140) 10/19/17 Miscellaneous Test 06/02/17 Details: HIV: Urine Culture: Sequential Screen: NIPT Screen: Results [id number] Office Urine Glucose Negative Last Edit by Jody Nice on 11/13/17 08:27 Office Urine Protein Negative Last Edit by Jody Nice on 11/13/17 08:27 Assessment AND Plan Problems 1. Encounter for supervision of other normal in second trimester Z34.82 PRR ALVIN 01/15/18 girl Monty Carey [facility] Sanya Katie 2. screening encounter Z36.9 declines genetic screening Plan Orders placed: movement and labor precautions reviewed. ACOG trimester education reviewed and updated. see problem list details for updated plan management information. [place] appropriate handout given. Orders Orders: Plan Detail Goals Decrease inflammation and pain Coding Level of Care Code OB Routine Diagnoses Encounter for supervision of other normal in second trimester Z34.82 Normal : other normal Trimester: second trimester screening encounter Z36.9 11/13/17 0844 <Electronically signed by Dior Galvan MD> Date Dior Galvan MD Cosigner Signature: Date (if applicable) CC: CHIROPRACTIC REPORT Observed: 10/20/2017 Status: F Source: RONNIE 9:[address] [facility] [place] [address] OFFICE VISIT Date of Service: 10/19/17 MR#: [id number] Acct: [id number] Name: CLINT FRANCO Rep #: [id number] : 1990 Provider: Kamila West D.C. Age/Sex: 27/F Location: [facility] Status: Signed Intake Vital Signs10/19/17 Height 5 ft 5 in 10/19/17 Weight: 207 lb 10/19/17 Body Mass Index (BMI) 34.4 Intake Visit Reasons: back pain Is patient in pain?: Yes Allergies No Known Allergies Allergy (Verified 10/19/17 09:20) Medications Vit No.130/Iron/FA [ Vitamins] 1 ea PO DAILY 11/02/15 [History Confirmed 10/19/17] ranitidine 150 mg tablet 150 mg PO BID #60 tab 09/21/17 [Rx Confirmed 10/19/17] PFSH Medical History Environmental allergies (Acute) GERD (gastroesophageal reflux disease) (Acute) Heart murmur (Acute) Family History Other Asthma Breast cancer CVA (cerebral vascular accident) Cancer Hypertension Social History Smoking Status: Never smoker alcohol intake: never substance use type: does not use caffeine: Yes what type of physical activity do you participate in: none seatbelt use: always do you feel safe at home: Yes additional social history: TIM HEREDIA back pain : Chief Complaint: back pain Visit Number: 4 Details: CLINT FRANCO is a 27 year old F who presents with low back and pelvic pain, she is currently 30 weeks . Today the patient rates her pain a 3/10 and describes it as a slight dull ache across the low back, banding around in the pelvis. The pain can be sharp at times after bending, lifting and twisting. Clint denies any numbness, tingling or radiculopathy. Onset: 10/05/17 Location: low back and pelvis Duration: intermittent Aggravating or associated factors: bending, lifting, and twisting Relieving factors: chiro Pain Quality: aching, dull, cramping, sharp Exam Musc General: Yes normal posture (22 weeks ), normal gait, joint tenderness (L3, R sacrum ,LIL) and decreased ROM Thoracic/Lumbar Spine: thor and lumb spine abnorm to inspection (posteriorly rotated L pelvis), thoraco-lumbar ROM not normal, Lasegue's sign positive on the right, pain with thoraco-lumbar ROM with forward flexion and with lateral flexion to the right, paraspinal tenderness (slightly improved) on the right in the lower lumbar, thoraco- lumbar ROM limited (slightly improved) with forward flexion, thoraco-lumbar spasm (slightly improved) on the right (QL, piriformis) in the lower lumbar Sacrum: other Office Procedures Chiropractic Treatments Procedures Manipulation: 3-4 regions (L3, R sacrum ,LIL) Results [id number] Office Urine Glucose Negative Last Edit by Almaz Gaxiola on 10/19/17 09:23 Office Urine Protein Negative Last Edit by Almaz Gaxiola on 10/19/17 09:23 Assessment AND Plan 1. Segmental and somatic dysfunction of pelvic region M99.05 Orders Orders: 2. Segmental and somatic dysfunction of sacral region M99.04 Orders Orders: 3. Segmental and somatic dysfunction of lumbar region M99.03 Orders Orders: Plan Detail Goals Decrease inflammation and pain Follow Up 1 Month Coding Level of Care Code No Charge Diagnoses Segmental and somatic dysfunction of pelvic region M99.05 Segmental and somatic dysfunction of sacral region M99.04 Segmental and somatic dysfunction of lumbar region M99.03 Additional Codes Procedures - Manipulation: 3-4 regions (88269) 10/20/17 0949 <Electronically signed by Kamila West D.C.> Date Kamila West D.C. Cosigner Signature: Date (if applicable) CC: GLUCOSE CHALLENGE GEST Collected: 10/19/2017 Status: F Source: RONNIE 1H 50G 10:18 AM [facility] TYPE CODE TESTS RESULT OUT OF RANGE REFERENCE UNITS LAB L501.0250 70-140 mg/dL Normal GLU GEST 112 50g 1H Performed By: #### L501.0250 #### [facility] [address] [place], [address] HIV - [facility] Collected: 10/19/2017 Status: F Source: [place] 10:18 AM [facility] TYPE CODE TESTS RESULT OUT OF RANGE REFERENCE UNITS LAB L3890.6005 Nonreactive Normal HIV - [facility] Non-Reactive Performed By: #### L3890.6005 #### [facility] [address] [place], [address] CBC, EMPLOYEE Collected: 10/19/2017 Status: F Source: [place] 9:45 AM [facility] TYPE CODE TESTS RESULT OUT OF RANGE REFERENCE UNITS LAB L100.1000 4.4-11.0 K/mm3 Normal WBC 9.9 LAB L100.1200 4.2-5.4 M/mm3 Low RBC 4.18 LAB L100.1300 12.0-15.0 g/dl Normal HGB 12.9 LAB L100.1400 37-47 % Normal HCT 39.4 LAB L100.1500 81-99 fL Normal MCV 94.3 LAB L100.1600 27.0-32.0 pg Normal MCH 30.9 LAB L100.1700 32-36 g/gl Normal MCHC 32.7 LAB L100.1810 11.6-14.6 % Normal RDW CV 13.3 LAB L100.1820 35.1-43.9 fl High RDW SD 45.7 LAB L100.1900 150-450 K/mm3 Normal PLT 174 LAB L100.2000 6.2-12.0 fl Normal MPV 10.2 LAB L100.2110 47-70 % High NEUT% 76.3 LAB L100.2210 19-41 % Low LY% 16.8 LAB L100.2310 0-10 % Normal MONO% 5.3 LAB L100.2410 0-5 % Normal EO% 1.2 LAB L100.2510 0-1 % Normal BASO% 0.2 LAB L100.2620 2.0-7.7 X10 3/uL Normal Absolute Neut 7.5 LAB L100.2720 0.83-4.51 X10 3/ul Normal Absolute Lymph 1.66 Performed By: #### L100.0200 #### [facility] [address] [place], [address] URINALYSIS, EMPLOYEE Collected: 10/19/2017 Status: F Source: RONNIE 9:45 AM [facility] TYPE CODE TESTS RESULT OUT OF RANGE REFERENCE UNITS LAB L400.3000 Yellow COLOR Normal Yellow LAB L400.3050 Clear Normal CLARITY Clear LAB L400.3200 Normal mg/dl Normal GLUCOSE, UR Normal LAB L400.3300 Negative mg/dL Normal BILIRUBIN URINE Negative LAB L400.3400 Negative mg/dl Normal KETONE UR Negative LAB L400.3465 1.002-1.030 Normal SP.GR. DIPSTX 1.010 LAB L400.3550 5.0 - 8.0 pH UR Normal 7.0 LAB L400.3600 Negative mg/dl PROT Normal DIPSTX Negative LAB L400.3700 Normal mg/dl Normal UROBILI Normal LAB L400.3750 Negative Normal NITRITE UR Negative LAB L400.3780 Negative /ul Normal OCCULT BLOOD-UR Negative LAB L400.3800 Negative /ul High LEUK ESTERASE 500 Performed By: #### L400.0100 #### [facility] [address] [place], [address] NICOTINE URINE DRUG Collected: 10/19/2017 Status: F Source: RONNIE MCKENZIE 9:45 AM [facility] TYPE CODE TESTS RESULT OUT OF RANGE REFERENCE UNITS LAB L505.6250 TO BE Normal CONFIRMED Result Comment: CONFIRMATORY TESTING FOR ALL POSITIVE URINE DRUG SCREEN RESULTS WILL ONLY BE SENT OUT UPON PHYSICIAN ORDER. The results of Urine Drug Screen methods provide only preliminary analytical test results. A more specific alternate chemical method must be used in order to obtain a confirmed analytical result. Gas chromatography/mass spectrometery (GC/MS) is the preferred confirmatory method. Clinical consideration and professional judgement should be applied to any drug of abuse test result, particularly when preliminary positive results are used. LAB L505.6270 <200 ng/mL Normal COT DRG Negative SCREEN Result Comment: Cotinine is the first-stage metabolite of Nicotine. Performed By: #### L505.6240 #### [facility] [address] [facility] [address] [place], [address] EMPLOYEE PROFILE Collected: 10/19/2017 Status: F Source: RONNIE 9:45 AM [facility] TYPE CODE TESTS RESULT OUT OF RANGE REFERENCE UNITS LAB L501.0100 74-106 mg/dL High GLU 112 Result Comment: Fasting Glucose result from 100 to 125 mg/dL suggests IMPAIRED HOMEOSTASIS per A.D.A. criteria. Please note revised GLUCOSE reference range effective 2017. LAB L501.1000 7-18 mg/dL Normal BUN 9 LAB L501.1100 0.55-1.02 mg/dL Normal CREAT,SERUM 0.62 Result Comment: The validity of the calculated GFR AND GFRAA in patients over 70 years has not been determined. Clinical correlation is essential. LAB L501.1110 >60 mL/min Normal EST GFR 124 Result Comment: Non- GFR Calc LAB L501.1115 >60 mL/min Normal EST GFR - AA 150 Result Comment: GFR Calc LAB L501.1300 10-20 RATIO Normal BUN/CRE 14.6 LAB L501.1400 2.6-6.0 mg/dL Normal URIC 4.4 Result Comment: The drugs N-Acetylcysteine and Metamizole may falsely depress this assay. LAB L501.1500 6.4-8.2 g/dL Normal T PROT 6.6 LAB L501.1800 3.2-5.0 g/dL Low ALB 2.6 LAB L501.1950 2.2-4.2 g/dL Normal GLOB 4.0 LAB L501.2000 0.9-2.4 RATIO Low A/G 0.6 LAB L501.2200 8.5-10.1 mg/dL Low CA 7.7 LAB L501.2300 2.5-4.9 mg/dL Normal PHOS 2.5 LAB L501.4100 15-37 U/L Normal AST 15 LAB L501.4305 45-117 U/L Normal ALK P 57 LAB L501.4405 13-56 U/L Normal ALT 13 LAB L501.4600 0.20-1.00 mg/dL Normal T BILI 0.50 LAB L501.4700 0.00-0.30 mg/dL Normal D BILI 0.08 LAB L501.4900 200 mg/dL Normal CHOL 164 Result Comment: <200 mg/dL Desirable 200-240 mg/dL Borderline >240 mg/dL High Risk LAB L501.5000 mg/dL Normal TRIG 131 Result Comment: The drugs N-Acetylcysteine and Metamizole may falsely depress this assay. Serum Triglycerides Reference Interval Normal <150 mg/dL Borderline high 150 - 199 mg/dL High 200 - 499 mg/dL Very High > or = 500 mg/dL LAB L501.5300 136-145 mmol/L Normal NA 138 LAB L501.5600 3.5-5.1 mmol/L Normal K 3.6 LAB L501.5900 98-107 mmol/L High CL 109 LAB L501.6100 21.0-32.0 mmol/L Normal CO2 21.0 LAB L501.6200 5-15 Normal 8 GAP LAB L501.6400 mg/dL Normal HDL 65 Result Comment: The drugs N-Acetylcysteine and Metamizole may falsely depress this assay. Reference Range HDL <40 mg/dL Low HDL Cholesterol HDL >or= 60 mg/dL High HDL Cholesterol LAB L501.6475 Normal CHOL:HDL 2.50 LAB L501.6500 0-130 mg/dL Normal LDL 73 LAB L501.6600 5-40 mg/dL Normal VLDL 26 LAB L504.2610 84-246 U/L Normal LDH 187 Performed By: #### L500.2900 #### [facility] [address] [place], [address] ENVIRONMENTAL TECHNOLOGY PROFESSOR OFFICE VISIT Observed: 10/19/2017 Status: F Source: [place] REPORT 9:37 AM [facility] [address] [place] [address] OFFICE VISIT Date of Service: 10/19/17 MR#: [id number] Acct: [id number] Name: CLINT FRANCO Rep #: [id number] : 1990 Provider: Dior Galvan MD Age/Sex: 27/F Location: [facility] Status: Signed Intake Vital Signs10/19/17 Height 5 ft 5 in 10/19/17 Weight: 207 lb 10/19/17 Body Mass Index (BMI) 34.4 10/19/17 Blood Pressure 119/73 Intake Visit Reasons: 28 week Chief Complaint: est ob Appeals Examiner Required: No Is patient in pain?: No Allergies No Known Allergies Allergy (Verified 10/19/17 09:20) Medications Vit No.130/Iron/FA [ Vitamins] 1 ea PO DAILY 11/02/15 [History Confirmed 10/19/17] ranitidine 150 mg tablet 150 mg PO BID #60 tab 09/21/17 [Rx Confirmed 10/19/17] Last Menstral Period: 04/10/17 Zika: Zika virus screening: Negative : No PFSH PFSH Medical History Environmental allergies (Acute) GERD (gastroesophageal reflux disease) (Acute) Heart murmur (Acute) Family History Other Asthma Breast cancer CVA (cerebral vascular accident) Cancer Hypertension Social History Smoking Status: Never smoker alcohol intake: never substance use type: does not use caffeine: Yes what type of physical activity do you participate in: none seatbelt use: always do you feel safe at home: Yes additional social history: TIM BETH Pregancy History 2 Elective abortions Hx Para 1 Spontaneous abortions Past Pregnancies Del. DatName GA/WeeksOutcome Route [facility] LocaProviderFOB e ht en ia tn Unknown [address] [place] MIGUELINA rling th - ful l term HPI 28 week: Details: CLINT FRANCO is a 27 year old who presents for routine OB visit. OB Visit ALVIN Calculator Estimated Delivery Date 01/15/18 Based on LMP (certain) 04/10/17 Current WG 27w 3d Number 1 Expected Delivery Route/Plan Specific Issue/Plans FLU VACCINE GIVEN minichart given: given tdap vaccine: given rhogam: na LARC form signed: [] labor support person: Katie pain management: epidural ok cut cord/dad catch: yes : yes PP control planned: [] special requests: [] Initial Weight: 180 lb Date Weight BP Urine PrFHR FuHt Pres MoCTX DilationFetal StVisit NoProviderComments E ot v te [place] G Effac lucose ed Visit Notes Visit Date: 10/19/17 no vb lof good fm no regular ctx. cbc gct tdap today Dior Galvan MD on 10/19/17 Visit Date: 09/21/17 having heartburn no vb cramping Dior Galvan MD on 09/21/17 Visit Date: 08/28/17 Right low back pain into buttocks and down leg. Denies VB, LOF, GREG Dorado on 08/28/17 Visit Date: 07/29/17 Denies cramping, LOF, VB. 2 episodes of dizziness, resolved with rest, juice. Both times at work/lab-[facility] GREG Dorado on 07/29/17 no vb cramping having SI joint pain Dior Galvan MD on 07/03/17 no vb cramping having SI joint pain Dior Galvan MD on 07/03/17 Visit Date: 07/03/17 no vb cramping having SI joint pain Dior Galvan MD on 07/03/17 ACOG First Trimester First Trimester: Desire for , Alcohol, Tobacco Cessation, Illicit/Recreational Drug/Substance Use, Intimate Partner Violence, Barriers to care, Unstable Housing, Communication Barriers, Environmental/Work Hazards, Anticipated Course of Care, Toxoplasmosis Precations, Use of Any medications, Sexual activity, Exercise, Dental Care, Sauna/Hot tub use, Seat Belt use, Childbirth classes/Hospital facilities, , Travel, Indications for US and Screening for Aneuploidy Diagnostics Diagnostics Labs Blood Type A POSITIVE 06/02/17 Antibody Screen NEGATIVE 06/02/17 Hct 43.3 % (37-47) 06/02/17 Hgb 14.4 g/dl (12.0-15.0) 06/02/17 Obstetrics Ultrasound 08/28/17 Rubella IgG Antibody 251.4 IU/mL 06/02/17 RPR NONREACTIVE (NONREACTIVE) 06/02/17 Hep Bs Antigen Negative (Negative) 06/02/17 Chlam trachomat DNA PCR Negative (Negative) 06/02/17 N.gonorrhoeae DNA (PCR) Negative (Negative) 06/02/17 Rhogam given: No 03/24/16 Miscellaneous Test 06/02/17 Details: HIV: neg Urine Culture: neg Sequential Screen: NIPT Screen: Results [id number] Office Urine Glucose Negative Last Edit by Almaz Gaxiola on 10/19/17 09:23 Office Urine Protein Negative Last Edit by Almaz Gaxiola on 10/19/17 09:23 Immunizations Boostrix Tdap Performing Provider: Dior Galvan MD Administered by: Almaz Gaxiola on 10/19/17 09:25 Dose Route Admin Location Lot Number Expiration Date NDC Greens Cutter 0.5 mL IM Right Arm (SQ) [id number] 03/27/19 62274-667-16 [employer] VIS Given Date VIS Publication Date 10/19/17 06/27/14 Eligibility Eligibility Date Assessment AND Plan Problems 1. Encounter for supervision of other normal in second trimester Z34.82 PRR (needs HIV) ALVIN 01/15/18 PC Sanya Katie 2. screening encounter Z36.9 declines genetic screening 3. 27 weeks gestation of Z3A.27 Plan Orders placed: cbc gct tdap hiv movement and labor precautions reviewed. ACOG trimester education reviewed and updated. see problem list details for updated plan management information. [place] appropriate handout given. Orders Orders: Medications Discontinued: Boostrix Tdap (diphth,pertus(acell),tetanus) Dis0.5 mL IM ONCE NS Z23 Almaz Gaxiola continued Reason: Office Medication has been Docum ented as given Plan Detail Goals Decrease inflammation and pain Coding Level of Care Code OB Routine Diagnoses Encounter for supervision of other normal in second trimester Z34.82 Normal : other normal Trimester: second trimester screening encounter Z36.9 27 weeks gestation of Z3A.27 10/19/17 0937 <Electronically signed by Dior Galvan MD> Date Dior Galvan MD Cosigner Signature: Date (if applicable) CC: ENVIRONMENTAL TECHNOLOGY PROFESSOR OFFICE VISIT Observed: 09/21/2017 Status: F Source: RONNIE REPORT 9:32 AM [facility] [place] [address] [place] [address] OFFICE VISIT Date of Service: 09/21/17 MR#: [id number] Acct: [id number] Name: CLINT FRANCO Rep #: [id number] : 1990 Provider: Dior Galvan MD Age/Sex: 27/F Location: [facility] Status: Signed Intake Vital Signs09/21/17 Height 5 ft 5 in 09/21/17 Weight: 200 lb 8 oz 09/21/17 Body Mass Index (BMI) 33.3 09/21/17 Blood Pressure 126/84 Intake Visit Reasons: 24 week Appeals Examiner Required: No Is patient in pain?: No Allergies No Known Allergies Allergy (Verified 09/21/17 09:14) Medications Vit No.130/Iron/FA [ Vitamins] 1 ea PO DAILY 11/02/15 [History Confirmed 09/21/17] ranitidine 150 mg tablet 150 mg PO BID #60 tab 09/21/17 [Rx Confirmed 09/21/17] Last Menstral Period: 04/10/17 Zika: Zika virus screening: Negative : No PFSH PFSH Medical History Environmental allergies (Acute) GERD (gastroesophageal reflux disease) (Acute) Heart murmur (Acute) Family History Other Asthma Breast cancer CVA (cerebral vascular accident) Cancer Hypertension Social History Smoking Status: Never smoker alcohol intake: never substance use type: does not use caffeine: Yes what type of physical activity do you participate in: none seatbelt use: always do you feel safe at home: Yes additional social history: TIM BETH Pregancy History 2 Elective abortions Hx Para 1 Spontaneous abortions Past Pregnancies Del. DatName [place]/WeeksOutcome Route [facility] LocaProviderFOB e ht en ia tn Unknown [address] [place] MIGUELINA rling th - ful l term HPI 24 week: Details: CLINT FRANCO is a 27 year old who presents for routine OB visit. OB Visit ALVIN Calculator Estimated Delivery Date 09/14/18 Based on LMP (certain) 04/10/17 Current WG 23w 3d Number 1 Expected Delivery Route/Plan Specific Issue/Plans FLU VACCINE GIVEN minichart given: given tdap vaccine: [] rhogam: [] LARC form signed: [] labor support person: Katie pain management: epidural ok cut cord/dad catch: yes : yes PP control planned: [] special requests: [] Initial Weight: 180 lb Date Weight BP Urine PrFHR FuHt Pres MoCTX DilationFetal StVisit NoProviderComments E ot v te [place] G Effac lucose ed Visit Notes Visit Date: 09/21/17 having heartburn no vb cramping Dior Galvan MD on 09/21/17 Visit Date: 08/28/17 Right low back pain into buttocks and down leg. Denies VB, LOF, GREG Dorado on 08/28/17 Visit Date: 07/29/17 Denies cramping, LOF, VB. 2 episodes of dizziness, resolved with rest, juice. Both times at work/lab-[facility] GREG Dorado on 07/29/17 no vb cramping having SI joint pain Dior Galvan MD on 07/03/17 no vb cramping having SI joint pain Dior Galvan MD on 07/03/17 Visit Date: 07/03/17 no vb cramping having SI joint pain Dior Galvan MD on 07/03/17 ACOG First Trimester First Trimester: Desire for , Alcohol, Tobacco Cessation, Illicit/Recreational Drug/Substance Use, Intimate Partner Violence, Barriers to care, Unstable Housing, Communication Barriers, Environmental/Work Hazards, Anticipated Course of Care, Toxoplasmosis Precations, Use of Any medications, Sexual activity, Exercise, Dental Care, Sauna/Hot tub use, Seat Belt use, Childbirth classes/Hospital facilities, , Travel, Indications for US and Screening for Aneuploidy Diagnostics Diagnostics Labs Blood Type A POSITIVE 06/02/17 Antibody Screen NEGATIVE 06/02/17 Hct 43.3 % (37-47) 06/02/17 Hgb 14.4 g/dl (12.0-15.0) 06/02/17 Obstetrics Ultrasound 08/28/17 Rubella IgG Antibody 251.4 IU/mL 06/02/17 RPR NONREACTIVE (NONREACTIVE) 06/02/17 Hep Bs Antigen Negative (Negative) 06/02/17 Chlam trachomat DNA PCR Negative (Negative) 06/02/17 N.gonorrhoeae DNA (PCR) Negative (Negative) 06/02/17 Rhogam given: No 03/24/16 Miscellaneous Test 06/02/17 Details: HIV: Urine Culture: Sequential Screen: NIPT Screen: Results [id number] Office Urine Glucose Negative Last Edit by Meg Curtis on 09/21/17 09:17 Office Urine Protein Negative Last Edit by Meg Curtis on 09/21/17 09:17 Assessment AND Plan Problems 1. Encounter for supervision of other normal in first trimester Z34.81 PRR (needs HIV) ALVIN 01/15/18 PC Sanya Katie 2. screening encounter Z36.9 declines genetic screening 3. 23 weeks gestation of Z3A.23 Plan Orders placed: none ACOG trimester education reviewed and updated. see problem list details for updated plan management information. GA appropriate handout given. Orders Orders: Medications New: Plan Detail Goals Decrease inflammation and pain Coding Level of Care Code OB Routine Diagnoses Encounter for supervision of other normal in first trimester Z34.81 Normal : other normal Trimester: first trimester screening encounter Z36.9 23 weeks gestation of Z3A.23 09/21/17 0932 <Electronically signed by Dior Galvan MD> Date Dior Galvan MD Cosigner Signature: Date (if applicable) CC: CHIROPRACTIC REPORT Observed: 09/15/2017 Status: F Source: [place] 2:[address] [facility] [address] [place] [id number] OFFICE VISIT Date of Service: 09/14/17 MR#: [id number] Acct: [id number] Name: CLINT FRANCO Rep #: [id number] : 1990 Provider: Kamila West D.C. Age/Sex: 27/F Location: [facility] Status: Signed Intake Vital Signs09/14/17 Height 5 ft 5 in 09/14/17 Weight: 190 lb 09/14/17 Body Mass Index (BMI) 31.6 Intake Visit Reasons: back pain Chief Complaint: R sided LB pain Is patient in pain?: No Allergies No Known Allergies Allergy (Verified 08/28/17 09:26) Medications Vit No.130/Iron/FA [ Vitamins] 1 ea PO DAILY 11/02/15 [History Confirmed 08/28/17] PFSH Medical History Environmental allergies (Acute) GERD (gastroesophageal reflux disease) (Acute) Heart murmur (Acute) Family History Other Asthma Breast cancer CVA (cerebral vascular accident) Cancer Hypertension Social History Smoking Status: Never smoker alcohol intake: never substance use type: does not use caffeine: Yes what type of physical activity do you participate in: none seatbelt use: always do you feel safe at home: Yes additional social history: TIM HEREDIA back pain : Chief Complaint: back pain Visit Number: 3 Details: CLINT FRANCO is a 27 year old F who presents with decreased low back pain. Clint states that after her last treatment she has no longer experienced any low back or radicular symptoms. Today the patient states presence of a dull ache throughout the hips although she is currently 22 weeks . Location: low back Duration: occasional Aggravating or associated factors: bending and prolonged standing Relieving factors: chiro Pain Quality: aching, dull Exam Musc General: Yes normal posture (22 weeks ), normal gait, joint tenderness (L3, R sacrum ,LIL) and decreased ROM Thoracic/Lumbar Spine: thor and lumb spine abnorm to inspection (posteriorly rotated L pelvis), thoraco-lumbar ROM not normal, Lasegue's sign positive on the right, pain with thoraco-lumbar ROM with forward flexion and with lateral flexion to the right, paraspinal tenderness (slightly improved) on the right in the lower lumbar, thoraco- lumbar ROM limited (slightly improved) with forward flexion, thoraco-lumbar spasm (slightly improved) on the right (QL, piriformis) in the lower lumbar Sacrum: other Office Procedures Chiropractic Treatments Procedures Manipulation: 3-4 regions (L3, R sacrum ,LIL) Assessment AND Plan 1. Segmental and somatic dysfunction of lumbar region M99.03 Orders Orders: 2. Segmental and somatic dysfunction of pelvic region M99.05 3. Segmental and somatic dysfunction of sacral region M99.04 Plan Detail Additional Comments The patient has shown positive improvement with regard to decreased pain and less joint restriction. She is now able to work without the discomfort. Follow up in 1 month and monitor for exacerbation. Goals Decrease inflammation and pain Follow Up 1 Month Coding Level of Care Code No Charge Diagnoses Segmental and somatic dysfunction of lumbar region M99.03 Segmental and somatic dysfunction of pelvic region M99.05 Segmental and somatic dysfunction of sacral region M99.04 Additional Codes Procedures - Manipulation: 3-4 regions (51165) 09/15/17 0996 <Electronically signed by Kamila West D.C.> Date Kamila West D.C. Cosignector Signature: Date (if applicable) CC: CHIROPRACTIC REPORT Observed: 09/15/2017 Status: F Source: [place] 8:[address] [facility] [address] [place] [address] OFFICE VISIT Date of Service: 09/10/17 MR#: [id number] Acct: [id number] Name: CLINT FRANCO Rep #: [id number] : 1990 Provider: Kamila West D.C. Age/Sex: 27/F Location: [facility] [place] Status: Signed Intake Vital Signs09/10/17 Height 5 ft 5 in 09/10/17 Weight: 190 lb 09/10/17 Body Mass Index (BMI) 31.6 Intake Visit Reasons: back pain Chief Complaint: R sided LB pain Is patient in pain?: Yes Allergies No Known Allergies Allergy (Verified 08/28/17 09:26) Medications Vit No.130/Iron/FA [ Vitamins] 1 ea PO DAILY 11/02/15 [History Confirmed 08/28/17] PFSH Medical History Environmental allergies (Acute) GERD (gastroesophageal reflux disease) (Acute) Heart murmur (Acute) Family History Other Asthma Breast cancer CVA (cerebral vascular accident) Cancer Hypertension Social History Smoking Status: Never smoker alcohol intake: never substance use type: does not use caffeine: Yes what type of physical activity do you participate in: none seatbelt use: always do you feel safe at home: Yes additional social history: TIM BETH HPI back pain : Chief Complaint: back pain Visit Number: 2 Details: CLINT FRANCO is a 27 year old F who presents with decreased low back pain. She states that after her last treatment she was sore, although the next day awoke with no pain. Today she states her pain is a 0, even after work, and doing frequent bending and lifting she no longer has any increased pain, she is currently 21 weeks . Location: R low back Duration: intermittent Relieving factors: adjustment Pain Quality: aching, dull Exam Musc General: Yes normal posture (20 weeks ), normal gait, joint tenderness (L3, R sacrum ,LIL) and decreased ROM Thoracic/Lumbar Spine: thor and lumb spine abnorm to inspection (posteriorly rotated L pelvis), thoraco-lumbar ROM not normal, Lasegue's sign positive on the right, pain with thoraco-lumbar ROM with forward flexion and with lateral flexion to the right, paraspinal tenderness on the right in the lower lumbar, thoraco-lumbar ROM limited with forward flexion and with lateral flexion to the right, thoraco-lumbar spasm on the right (QL, piriformis) in the lower lumbar, straight leg raise negative Office Procedures Chiropractic Treatments Procedures Manipulation: 3-4 regions (L3, R sacrum ,LIL) Assessment AND Plan 1. Segmental and somatic dysfunction of lumbar region M99.03 Orders Orders: 2. Sciatic leg pain M54.30 Orders Orders: 3. Segmental and somatic dysfunction of sacral region M99.04 4. Segmental and somatic dysfunction of pelvic region M99.05 Plan Detail Additional Comments Patient is showing improvement, monitor for exacerbation. Goals Decrease inflammation and pain Follow Up 1 Week Coding Level of Care Code No Charge Diagnoses Segmental and somatic dysfunction of lumbar region M99.03 Sciatic leg pain M54.30 Segmental and somatic dysfunction of sacral region M99.04 Segmental and somatic dysfunction of pelvic region M99.05 Additional Codes Procedures - Manipulation: 3-4 regions (79006) 09/15/17 0823 <Electronically signed by Kamila West D.C.> Date Kamila West D.C. Cosigner Signature: Date (if applicable) CC: CHIROPRACTIC REPORT Observed: 09/09/2017 Status: F Source: [place] 8:[address] [facility] [address] [place] [address] OFFICE VISIT Date of Service: 09/01/17 MR#: [id number] Acct: [id number] Name: CLINT FRANCO Rep #: [id number] : 1990 Provider: Kamila West D.C. Age/Sex: 27/F Location: [facility] [place] Status: Signed Intake Vital Signs09/01/17 Height 5 ft 5 in 09/01/17 Weight: 190 lb 09/01/17 Body Mass Index (BMI) 31.6 Intake Visit Reasons: Back pain Chief Complaint: R sided LB pain Is patient in pain?: Yes Allergies No Known Allergies Allergy (Verified 08/28/17 09:26) Medications Vit No.130/Iron/FA [ Vitamins] 1 ea PO DAILY 11/02/15 [History Confirmed 08/28/17] [facility] Medical History Environmental allergies (Acute) GERD (gastroesophageal reflux disease) (Acute) Heart murmur (Acute) Family History Other Asthma Breast cancer CVA (cerebral vascular accident) Cancer Hypertension Social History Smoking Status: Never smoker alcohol intake: never substance use type: does not use caffeine: Yes what type of physical activity do you participate in: none seatbelt use: always do you feel safe at home: Yes additional social history: TIM BETH HPI Back pain : Chief Complaint: R sided low back pain Visit Number: 1 Referral source: [facility] employee Details: CLINT FRANCO is a 27 year old F who presents with R sided low back pain, she is currently 20 weeks . She states that the pain begin with her first , and did subside after delivery although once she began the second time the pain returned. Today Clint describes her pain as a deep ache, that can become sharp shooting. Prolonged sitting, standing, bending, and lifting all cause increased pain, at its worst Clint rates her pain a 8/10 describing it as a sharp shooting that radiates into the upper R thigh with numbness. Last week the patient was unable to get out of bed due to the pain, with a sensation that her hips were stuck. Onset: 06/08/17 Location: R low back Duration: constant Aggravating or associated factors: prolonged standing, sitting, bending and lifting Relieving factors: N/A Pain Quality: aching, dull, sharp, radiating Exam Musc General: Yes normal posture (20 weeks ), normal gait, joint tenderness (L3, R sacrum ,LIL) and decreased ROM Thoracic/Lumbar Spine: thor and lumb spine abnorm to inspection (posteriorly rotated L pelvis), thoraco-lumbar ROM not normal, Lasegue's sign positive on the right, pain with thoraco-lumbar ROM with forward flexion and with lateral flexion to the right, paraspinal tenderness on the right in the lower lumbar, thoraco-lumbar ROM limited with forward flexion and with lateral flexion to the right, thoraco-lumbar spasm on the right (QL, piriformis) in the lower lumbar, straight leg raise negative Neuro General: alert, awake, oriented x3, gait normal, deep tendon reflexes 2+ bilaterally (lower extremity) Ortho Test CERVICAL THORACIC LUMBAR Kemps: Positive, Rig Valsalvas: Negative SLR: Negative Iliac Compression: Positive, Rig Office Procedures Chiropractic Treatments Procedures Manipulation: 3-4 regions (L3, R sacrum, LIL) Assessment AND Plan 1. Segmental and somatic dysfunction of lumbar region M99.03 Orders Orders: 2. Segmental and somatic dysfunction of sacral region M99.04 3. Segmental and somatic dysfunction of pelvic region M99.05 Plan Detail Goals Decrease inflammation and pain Follow Up 1 Week Coding Level of Care Code Off vis,new,level 3 Diagnoses Segmental and somatic dysfunction of lumbar region M99.03 Segmental and somatic dysfunction of sacral region M99.04 Segmental and somatic dysfunction of pelvic region M99.05 Additional Codes Procedures - Manipulation: 3-4 regions (33675) 09/09/17 0831 <Electronically signed by Kamila West D.C.> Date Kamila West D.C. Cosigner Signature: Date (if applicable) CC: ENVIRONMENTAL TECHNOLOGY PROFESSOR OFFICE VISIT Observed: 08/28/2017 Status: F Source: [place] RE[facility] 9:[facility] AM [facility] [address] [place] [address] OFFICE VISIT Date of Service: 08/28/17 MR#: [id number] Acct: [id number] Name: CLINT FRANCO Rep #: [id number] : 1990 Provider: TRACIE Enriquez Age/Sex: 27/F Location: [facility] Status: Signed Intake Vital Signs08/28/17 Height 5 ft 5 in 08/28/17 Weight: 190 lb 6 oz 08/28/17 Body Mass Index (BMI) 31.6 08/28/17 Blood Pressure 128/71 Intake Visit Reasons: est ob Is patient in pain?: Yes Allergies No Known Allergies Allergy (Verified 08/28/17 09:26) Medications Vit No.130/Iron/FA [ Vitamins] 1 ea PO DAILY 11/02/15 [History Confirmed 08/28/17] Last Menstral Period: 04/10/17 : No PFSH PFSH Social History Smoking Status: Never smoker alcohol intake: never substance use type: does not use caffeine: Yes what type of physical activity do you participate in: none seatbelt use: always do you feel safe at home: Yes additional social history: RN PATTI BETH Pregancy History 2 Elective abortions Hx Para 1 Spontaneous abortions Past Pregnancies Del. DatName [place]/WeeksOutcome [facility] [place] LgAnesthesDel LocaProviderFOB e ht en ia tn Unknown 2015 Derick live birNSVD Ronnie MIGUELINA rling th - ful l term HPI est ob: Details: CLINT FRANCO is a 27 year old who presents for routine OB visit. OB Visit ALVIN Calculator Estimated Delivery Date 01/15/18 Based on LMP (certain) 04/10/17 Current WG 20w 0d Number 1 Expected Delivery Route/Plan Specific Issue/Plans FLU VACCINE GIVEN minichart given: given tdap vaccine: [] rhogam: [] LARC form signed: [] labor support person: Katie pain management: epidural ok cut cord/dad catch: yes : yes PP control planned: [] special requests: [] Initial Weight: Not Recorded Date Weight BP Urine PrFHR FuHt Pres MoCTX DilationFetal StVisit NoProviderComments E ot v te [place] G Effac lucose ed Visit Notes Visit Date: 08/28/17 Right low back pain into buttocks and down leg. Denies VB, LOF, GREG Dorado on 08/28/17 Visit Date: 07/29/17 Denies cramping, LOF, VB. 2 episodes of dizziness, resolved with rest, juice. Both times at work/lab-[facility] GREG Dorado on 07/29/17 no vb cramping having SI joint pain Dior Galvan MD on 07/03/17 no vb cramping having SI joint pain Dior Galvan MD on 07/03/17 Visit Date: 07/03/17 no vb cramping having SI joint pain Dior Galvan MD on 07/03/17 ACOG First Trimester First Trimester: Desire for , Alcohol, Tobacco Cessation, Illicit/Recreational Drug/Substance Use, Intimate Partner Violence, Barriers to care, Unstable Housing, Communication Barriers, Environmental/Work Hazards, Anticipated Course of Care, Toxoplasmosis Precations, Use of Any medications, Sexual activity, Exercise, Dental Care, Sauna/Hot tub use, Seat Belt use, Childbirth classes/Hospital facilities, , Travel, Indications for US and Screening for Aneuploidy Diagnostics Diagnostics Labs Blood Type A POSITIVE 06/02/17 Antibody Screen NEGATIVE 06/02/17 Hct 43.3 % (37-47) 06/02/17 Hgb 14.4 g/dl (12.0-15.0) 06/02/17 Obstetrics Ultrasound 08/28/17 Rubella IgG Antibody 251.4 IU/mL 06/02/17 RPR NONREACTIVE (NONREACTIVE) 06/02/17 Hep Bs Antigen Negative (Negative) 06/02/17 Chlam trachomat DNA PCR Negative (Negative) 06/02/17 N.gonorrhoeae DNA (PCR) Negative (Negative) 06/02/17 Rhogam given: No 03/24/16 Miscellaneous Test 06/02/17 Details: HIV: Urine Culture: Sequential Screen: NIPT Screen: Results [id number] Office Urine Glucose Negative Last Edit by Meg Curtis on 08/28/17 09:29 Office Urine Protein Negative Last Edit by Meg Curtis on 08/28/17 09:29 Assessment AND Plan Problems 1. Encounter for supervision of other normal in first trimester Z34.81 PRR (needs HIV) ALVIN 01/15/18 PC Sanya Katie 2. screening encounter Z36.9 declines genetic screening 3. Sciatic leg pain M54.30 Plan Orders placed: none Will see chiropractor for leg/back pain. Heat to area and tylenol Reviewed of labor precautions, movement/kick counts ACOG trimester education reviewed and updated See problem list details for updated plan of care Gestational age appropriate handout given RTO: 4 weeks Orders Orders: Coding Level of Care Code OB Routine Diagnoses Encounter for supervision of other normal in first trimester Z34.81 Normal : other normal Trimester: first trimester screening encounter Z36.9 Sciatic leg pain M54.30 08/28/17 0949 <Electronically signed by Stefanie GARZA> Date Stefanie GARZA Cosigner Signature: Date (if applicable) CC: OB ANATOMY SCAN Observed: 08/28/2017 Status: F Source: [place] 8:03 AM [facility] [address] [place] [address] OB Anatomy Scan MR#: [id number] Acct: [id number] Name: CLINT FRANCO Rep #: [id number] : 1990 F 27 From: Jas ySlvester DO PCP: Laverne Mitchell DO Status: REG CLI Study: OB Anatomy Scan Date of Exam: 08/28/17 Exam# [id number] Ordering Dr: Stefanie Enriquez STUDY: SECOND AND THIRD TRIMESTER OBSTETRICAL ULTRASOUND REASON FOR EXAM: Female, 27 years old. anatomy scan LMP: 04/10/2017 TECHNIQUE: Transabdominal. Transvaginal used to evaluate cervix only. PRIOR ULTRASOUND: None. FINDINGS: There is a single intrauterine fetus. The fetus is in a cephalic presentation. There is demonstrated cardiac activity with a heart rate of 144 bpm. There is a normal amniotic fluid volume. The largest amniotic fluid pocket measures 9.8 cm. The placenta is anterior in location and is not low lying. There are Grade 0 placental changes. The cervix measures 3.4 cm in length. The adnexal regions are not visualized. BIOMETRY: BPD: 4.8 cm: 20 weeks, 4 days HC: 17.8 cm: 20 weeks, 2 days AC: 15.1 cm: 20 weeks, 3 days FL: 3.3 cm: 20 weeks, 2 days age by current US: 20 weeks, 3 days. ALVIN by current US: 01/12/2018. Estimated weight: 343 grams, +/- 50 grams, 61 %. Age by LMP: 20 weeks, 0 days. ALVIN by LMP: 01/15/2018. ANATOMY: Gender: Female Cranium: Normal lateral ventricles. Normal choroid plexus. Normal cerebellum. Normal cisterna magna. Normal face, nose and lips. Chest: Normal 4-chamber heart. Abdomen/Pelvis: Normal diaphragm. Normal stomach. Normal abdominal wall. Normal cord insertion. Normal 3 vessel cord. Normal kidneys. Normal bladder. Spine: Normal cervical spine. Normal thoracic spine. Normal lumbar spine. Normal sacrum. Extremities: Normal bilateral upper extremities. Normal bilateral lower extremities. INCIDENTALLY NOTED IS NUCHAL CORD. US/OB Anatomy Scan IMPRESSION: Single live intrauterine and current gestational age of 20 weeks 3 days with estimated date of delivery 01/12/2018. Visualized anatomy appears within normal limits. Please note nuchal cord Electronically Signed: Jas Syvlester DO at 8:14 EDT Tel , Service support , CC: TRACIE Enriquez; Laverne Mitchell DO Silk Brusher: Signed ENVIRONMENTAL TECHNOLOGY PROFESSOR OFFICE VISIT Observed: 07/29/2017 Status: F Source: [place] 10:00 AM [facility] [address] [place] [address] OFFICE VISIT Date of Service: 07/29/17 MR#: [id number] Acct: [id number] Name: JOANCLINT Dulce Maria Rep #: [id number] : 1990 Provider: TRACIE Enriquez Age/Sex: 27/F Location: [facility] Status: Signed Intake Vital Signs07/29/17 Height 5 ft 5 in 07/29/17 Weight: 186 lb 4 oz 07/29/17 Body Mass Index (BMI) 30.9 07/29/17 Blood Pressure 137/71 Intake Visit Reasons: 16 weeks Appeals Examiner Required: No Is patient in pain?: No Allergies No Known Allergies Allergy (Verified 07/29/17 09:46) Medications Vit No.130/Iron/FA [ Vitamins] 1 ea PO DAILY 11/02/15 [History Confirmed 07/29/17] Last Menstral Period: 04/10/17 Zika: Zika virus screening: Negative [facility] Social History Smoking Status: Never smoker alcohol intake: never substance use type: does not use caffeine: Yes what type of physical activity do you participate in: none seatbelt use: always do you feel safe at home: Yes additional social history: TIM BETH Pregancy History 2 Elective abortions Hx Para 1 Spontaneous abortions Past Pregnancies Del. DatName GA/WeeksOutcome Route [facility] LgAnesthesDel LocaProviderFOB e ht en th ia tn Unknown 2015 Derick live birNSVD Ronnie MIGUELINA rling th - ful l term HPI 16 weeks: Details: CLINT FRANCO is a 27 year old who presents for routine OB visit. OB Visit ALVIN Calculator Estimated Delivery Date 01/15/18 Based on LMP (certain) 04/10/17 Current WG 15w 5d Number 1 Expected Delivery Route/Plan Specific Issue/Plans FLU VACCINE GIVEN Initial Weight: Not Recorded Date Weight BP Urine PrFHR FuHt Pres MoCTX DilationFetal StVisit NoProviderComments E ot v te [place] G Effac lucose ed Visit Notes Visit Date: 07/29/17 Denies cramping, LOF, VB. 2 episodes of dizziness, resolved with rest, juice. Both times at work/lab-[facility] GREG Dorado on 07/29/17 no vb cramping having SI joint pain Dior Galvan MD on 07/03/17 no vb cramping having SI joint pain Dior Galvan MD on 07/03/17 Visit Date: 07/03/17 no vb cramping having SI joint pain Dior Galvan MD on 07/03/17 ACOG First Trimester First Trimester: Desire for , Alcohol, Tobacco Cessation, Illicit/Recreational Drug/Substance Use, Intimate Partner Violence, Barriers to care, Unstable Housing, Communication Barriers, Environmental/Work Hazards, Anticipated Course of Care, Toxoplasmosis Precations, Use of Any medications, Sexual activity, Exercise, Dental Care, Sauna/Hot tub use, Seat Belt use, Childbirth classes/Hospital facilities, , Travel, Indications for US and Screening for Aneuploidy Diagnostics Diagnostics Labs Blood Type A POSITIVE 06/02/17 Antibody Screen NEGATIVE 06/02/17 Hct 43.3 % (37-47) 06/02/17 Hgb 14.4 g/dl (12.0-15.0) 06/02/17 Rubella IgG Antibody 251.4 IU/mL 06/02/17 RPR NONREACTIVE (NONREACTIVE) 06/02/17 Hep Bs Antigen Negative (Negative) 06/02/17 Chlam trachomat DNA PCR Negative (Negative) 06/02/17 N.gonorrhoeae DNA (PCR) Negative (Negative) 06/02/17 Rhogam given: No 03/24/16 Miscellaneous Test 06/02/17 Details: HIV: Urine Culture: Sequential Screen: NIPT Screen: Results [id number] Office Urine Glucose Negative Last Edit by Meg Curtis on 07/29/17 09:48 Office Urine Protein Negative Last Edit by Meg Curtis on 07/29/17 09:48 Assessment AND Plan Problems 1. Encounter for supervision of other normal in first trimester Z34.81 PRR (needs HIV) ALVIN 01/15/18 PC Sanya Katie 2. screening encounter Z36.9 declines genetic screening 3. 15 weeks gestation of Z3A.15 Plan Orders placed: anatomy US Encourage not to sit long periods of time, increase fluids, small frequent meals to prevent drop BP, glucose. Call if persists. Reviewed of labor precautions, movement/kick counts ACOG trimester education reviewed and updated See problem list details for updated plan of care Gestational age appropriate handout given RTO: 4 weeks Orders Orders: Coding Level of Care Code OB Routine Diagnoses Encounter for supervision of other normal in first trimester Z34.81 Normal : other normal Trimester: first trimester screening encounter Z36.9 15 weeks gestation of Z3A.15 03 1000 <Electronically signed by Stefanie GARZA> Date Stefanie Enriquez ASSURANCE OFFICER-C Abbieer Signature: Date (if applicable) CC: ENVIRONMENTAL TECHNOLOGY PROFESSOR OFFICE VISIT Observed: 07/03/2017 Status: F Source: RONNIE REPORT 9:20 AM [facility] [address] [place] [address] OFFICE VISIT Date of Service: 07/03/17 MR#: [id number] Acct: [id number] Name: CLINT FRANCO Rep #: [id number] : 1990 Provider: Dior Galvan MD Age/Sex: 27/F Location: [facility] Status: Signed Intake Vital Signs07/03/17 Height 5 ft 5 in 07/03/17 Weight: 180 lb 07/03/17 Body Mass Index (BMI) 29.9 07/03/17 Blood Pressure 111/67 Intake Visit Reasons: (OB) Chief Complaint: est ob Appeals Examiner Required: No Is patient in pain?: No Allergies No Known Allergies Allergy (Verified 07/03/17 08:42) Medications Vit No.130/Iron/FA [ Vitamins] 1 ea PO DAILY 11/02/15 [History Confirmed 07/03/17] Last Menstral Period: 04/10/17 Zika: Zika virus screening: Negative : No PFSH PFSH Social History Smoking Status: Never smoker alcohol intake: never substance use type: does not use caffeine: Yes what type of physical activity do you participate in: none seatbelt use: always do you feel safe at home: Yes additional social history: TIM BETH Pregancy History 2 Elective abortions Hx Para 1 Spontaneous abortions Past Pregnancies Del. DatName GA/WeeksOutcome [facility] LocaProviderFOB e ht en th ia tn Unknown [address] [place] MIGUELINA rling th - ful l term HPI (OB): Details: CLINT FRANCO is a 27 year old who presents for routine OB visit. urine 2 dip glucose negative protein negative OB Visit ALVIN Calculator Estimated Delivery Date 01/15/18 Based on LMP (certain) 04/10/17 Current WG 12w 0d Number 1 Expected Delivery Route/Plan Specific Issue/Plans FLU VACCINE GIVEN Initial Weight: Not Recorded Date Weight BP Urine PrFHR FuHt Pres MoCTX DilationFetal StVisit NoProviderComments E ot v te GA G Effac lucose ed Visit Notes Visit Date: 07/03/17 no vb cramping having SI joint pain Dior Galvan MD on 07/03/17 ACOG First Trimester First Trimester: Desire for , Alcohol, Tobacco Cessation, Illicit/Recreational Drug/Substance Use, Intimate Partner Violence, Barriers to care, Unstable Housing, Communication Barriers, Environmental/Work Hazards, Anticipated Course of Care, Toxoplasmosis Precations, Use of Any medications, Sexual activity, Exercise, Dental Care, Sauna/Hot tub use, Seat Belt use, Childbirth classes/Hospital facilities, , Travel, Indications for US, Screening for Aneuploidy and Nurtrition and weight gain Diagnostics Diagnostics Labs Blood Type A POSITIVE 06/02/17 Antibody Screen NEGATIVE 06/02/17 Hct 43.3 % (37-47) 06/02/17 Hgb 14.4 g/dl (12.0-15.0) 06/02/17 Rubella IgG Antibody 251.4 IU/mL 06/02/17 RPR NONREACTIVE (NONREACTIVE) 06/02/17 Hep Bs Antigen Negative (Negative) 06/02/17 Chlam trachomat DNA PCR Negative (Negative) 06/02/17 N.gonorrhoeae DNA (PCR) Negative (Negative) 06/02/17 Rhogam given: No 03/24/16 Miscellaneous Test 06/02/17 Details: HIV: Urine Culture: negative Sequential Screen: NIPT Screen: Assessment AND Plan Problems 1. Encounter for supervision of other normal in first trimester Z34.81 PRR (needs HIV) ALVIN 01/15/18 PC Sanya Katie 2. screening encounter Z36.9 declines genetic screening 3. 12 weeks gestation of Z3A.12 Plan Orders placed: ordered hiv to be done at 26 weeks ACOG trimester education reviewed and updated. see problem list details for updated plan management information. GA appropriate handout given. Orders Orders: Coding Level of Care Code OB Routine Diagnoses Encounter for supervision of other normal in first trimester Z34.81 Normal : other normal Trimester: first trimester screening encounter Z36.9 12 weeks gestation of Z3A.12 07/03/17 0920 <Electronically signed by Dior Galvan MD> Date Dior Galvan MD Cosigner Signature: Date (if applicable) CC: CT/NG WCH BY PCR Collected: 06/02/2017 Status: F Source: [place] 4:41 PM [facility] TYPE CODE TESTS RESULT OUT OF RANGE REFERENCE UNITS LAB L8200.2100 Negative Normal Chlam Negative Trac PCR LAB L8200.2200 Negative Normal NG by Negative PCR Performed By: #### L8200.1999, M100.0650 #### [facility] [address] [place], [address] Observed: 06/02/2017 Status: F Source: [place] CULTURE, URINE 4:41 PM [facility] RE[facility] Urine Culture Culture exhibits no growth. Performed By: #### L8200.1999, M100.0650 #### [facility] [address] [place], [address] MISCELLANEOUS LAB Collected: 06/02/2017 Status: F Source: RONNIE PROCEDURE 4:41 PM [facility] Order Comment: CYTOLOGY INFORMATION: - CLINICAL INFORMATION: - DATE LMP/MENOPAUSE: LMP 04/10/17 - COLLECTION VIAL: Thin Prep Vial - MINE SAFETY DIRECTOR SOURCE: CERVICAL - COLLECTION TECHNIQUE: BRUSH ONLY/ cervix broom only Test(s) Ordered: [id number] aptima TYPE CODE TESTS RESULT OUT OF RANGE REFERENCE UNITS LAB L801.1541 Normal [facility] LAB TEST Result Comment: Test Ordered: IGP, rfx Aptima HPV ASCU Interpretation: NEGATIVE FOR INTRAEPITHELIAL LESION AND MALIGNANCY. Specimen Adequacy: Satisfactory for evaluation. Endocervical and/or squamous metaplastic cells (endocervical component) are present. Comments: The pap smear is a screening test designated to aid in the detection of pre-malignant and malignant conditions of the uterine cervix. It is not a diagnostic procedure and should not be used as the sole means of detecting cervical cancer. Both false-positive and false-negative reports do occur. This liquid based ThinPrep(R) pap test was screened with the use of an image guided system. Performed by Kitty Woodard, Railroad Car Painter (ASCP). The HPV DNA reflex criteria were not met with this specimen result therefore, no HPV testing was performed. TESTING PERFORMED AT [facility]. ORIGINAL REPORT ON FILE IN LAB CONTAINS ADDITIONAL TEST SITE INFORMATION. Performed By: #### L801.1541 #### [facility] [address] [place], [address] CBC W/DIFF, AUTOMATED Collected: 06/02/2017 Status: F Source: [place] 11:24 AM [facility] TYPE CODE TESTS RESULT OUT OF RANGE REFERENCE UNITS LAB L100.1000 4.4-11.0 K/mm3 Normal WBC 9.8 LAB L100.1200 4.2-5.4 M/mm3 Normal RBC 4.70 LAB L100.1300 12.0-15.0 g/dl Normal HGB 14.4 LAB L100.1400 37-47 % Normal HCT 43.3 LAB L100.1500 81-99 fL Normal MCV 92.1 LAB L100.1600 27.0-32.0 pg Normal MCH 30.6 LAB L100.1700 32-36 g/gl Normal MCHC 33.3 LAB L100.1810 11.6-14.6 % Normal RDW CV 12.8 LAB L100.1820 35.1-43.9 fl Normal RDW SD 42.4 LAB L100.1900 150-450 K/mm3 Normal PLT 212 LAB L100.2000 6.2-12.0 fl Normal MPV 10.2 LAB L100.2100 47-70 % Normal NEUT% 69.9 LAB L100.2200 19-41 % Normal LY% 21.3 LAB L100.2300 0-10 % Normal MONO% 7.8 LAB L100.2400 0-5 % Normal EO% 0.7 LAB L100.2500 0-1 % Normal BASO% 0.2 LAB L100.2550 0.0-0.9 % Normal IM GRAN % 0.100 Result Comment: IG% - Immature Granulocytes (promyelocytes, myelocytes and metamyelocytes) > 1% indicates that a LEFT SHIFT is Present. LAB L100.2620 2.0-7.7 X10 3/uL Normal Absolute Neut 6.8 LAB L100.2720 0.83-4.51 X10 3/ul Normal Absolute Lymph 2.08 Performed By: #### L100.0100, B101.7450 #### [facility] [address] [place] [address], [address] #### L3100.0390 #### [facility] (refer to report for specific site) refer to report for address and phone number TYPE AND SCREEN Collected: 06/02/2017 Status: F Source: [place] 11:24 AM [facility] Order Comment: Reason for Type AND Screen/Red Cells: TYPE CODE TESTS RESULT OUT OF RANGE REFERENCE UNITS LAB B10.0800 A Normal BLOOD TYPE GEL POSITIVE LAB B100.4000 Normal Antibody NEGATIVE Screen Performed By: #### L100.0100, B101.7450 #### [facility] [address] [place], [address] #### L3100.0390 #### [facility] (refer to report for specific site) refer to report for address and phone number HEPATITIS B SURFACE Collected: 06/02/2017 Status: F Source: RONNIE AG 11:24 AM [facility] TYPE CODE TESTS RESULT OUT OF RANGE REFERENCE UNITS LAB L3100.0400 Negative Normal HB Negative SURF AG Result Comment: Performed at: - [facility] [id number] Women'S Lacrosse Coach: Nicolas Gibson PhD, Phone: [phone] Performed By: #### L100.0100, B101.7450 #### [facility] [address] [place], [place] [address]e. [facility] 649601 #### L3100.0390 #### [facility] (refer to report for specific site) refer to report for address and phone number RUBELLA IGG Collected: 06/02/2017 Status: F Source: RONNIE 11:24 AM [facility] TYPE CODE TESTS RESULT OUT OF RANGE REFERENCE UNITS LAB L509.4000 IU/mL Normal Rubella IgG 251.4 Result Comment: Antibody results Interpretation of Immune Status < 5 IU/ml Presumed Non-immune 5 - < 10 IU/ml Equivocal > or = 10 IU/ml Presumed Immune Performed By: #### L509.4000, L700.5000 #### [facility] [facility] [address] RAPID PLASMIN REAGIN Collected: 06/02/2017 Status: F Source: RONNIE (RPR) 11:24 AM [facility] TYPE CODE TESTS RESULT OUT OF REFERENCE UNITS RANGE LAB L700.5000 NONREACTIVE NONREACTIVE Normal RPR Performed By: #### L509.4000, L700.5000 #### [facility] [address] [place] [address]. [place], [address] ENVIRONMENTAL TECHNOLOGY PROFESSOR OFFICE VISIT Observed: 06/02/2017 Status: F Source: RONNIE REPORT 11:15 AM [facility] [address] [place] [address] OFFICE VISIT Date of Service: 06/02/17 MR#: [id number] Acct: [id number] Name: CLINT FRANCO Rep #: [id number] : 1990 Provider: Dior Galvan MD Age/Sex: 27/F Location: [facility] Status: Signed Intake Vital Signs06/02/17 Height 5 ft 5 in 06/02/17 Weight: 176 lb 6 oz 06/02/17 Body Mass Index (BMI) 29.3 06/02/17 Blood Pressure 120/70 Intake Visit Reasons: NEW OB LMP 04/10/17 Chief Complaint: new ob Appeals Examiner Required: No Is patient in pain?: No Allergies No Known Allergies Allergy (Verified 06/02/17 10:32) Medications Vit No.130/Iron/FA [ Vitamins] 1 ea PO DAILY 11/02/15 [History Confirmed 06/02/17] Last Menstral Period: 04/10/17 Zika: Zika virus screening: Negative : No PFSH PFSH Social History Smoking Status: Never smoker alcohol intake: never substance use type: does not use caffeine: Yes what type of physical activity do you participate in: none seatbelt use: always do you feel safe at home: Yes additional social history: TIM BETH Pregancy History 2 Elective abortions Hx Para 1 Spontaneous abortions Past Pregnancies Del. DatName GA/WeeksOutcome Route [facility] LocaProviderFOB e ht en th ia tn Unknown [address] [place] MIGUELINA rling th - ful l term HPI NEW OB LMP 04/10/17: Details: CLINT FRANCO is a 27 year old who presents for New OB visit. OB Visit ALVIN Calculator Estimated Delivery Date 01/15/18 Based on LMP (certain) 04/10/17 Current WG 7w 4d Number 1 Expected Delivery Route/Plan Specific Issue/Plans FLU VACCINE GIVEN Menstrual History Last Menstral Period: 04/10/17 Reported LMP: definite Normal amount/duration: Yes On hormonal BC at conception: No Antepartum Record Genetic Screening: Congenital Heart Defect: Other, Neural Tube Defect: Other, Hemoglobinopathy Or Carrier: Other, Cystic Fibrosis: Partner (cf screen neg for mom), Chromosome Abnormality: Other, Benoit-Sachs: Other, Hemophilia: Other, Intellectual Disability/Autism: Other, Recurrent Loss/Stillbirth: Other, Other Structural Defect: Other, Other Genetic Disease: Other, Maternal Metabolic Disorder: Other Infection History: Live with someone with TB or Exposed to TB: No, Patient or Partner has history of Genital Herpes: No, Rash or Viral illness since last mentrual period: No, Prior GBS-Infected child: No, History of STD: No, HIV Infection: No, History of Hepatitis: No, Recent travel outside of [place]: No, Concern for Hep exposure: No, Varicella immune: Yes Medical History Medical History: Negative: Diabetes, Hypertension, Heart disease, Auto-immune disorder, Kidney disease/UTI, Neurologic/epilepsy, Psychiatric, Depression/ depression, Hepatitis/liver disease, Varicosities/phlebitis, Thyroid dysfunction, Trauma/domestic violence, History of blood transfusions, D (Rh) Sensitized, Pulmonary (e.g.,TB,Asthma), Seasonal allergies, Drug/latex allergies/reactions, Breast, Material Cutter surgery, Operations/hospitalizations, Anesthetic complications, History of abnormal pap, Uterine anomaly/figueroa, Infertility, Anti-retroviral treatment, Relevant family history, Other ACOG First Trimester First Trimester: Desire for , Alcohol, Tobacco Cessation, Illicit/Recreational Drug/Substance Use, Intimate Partner Violence, Barriers to care, Unstable Housing, Communication Barriers, Environmental/Work Hazards, Anticipated Course of Care, Nurtrition and weight gain, Toxoplasmosis Precations, Use of Any medications, Sexual activity, Exercise, Dental Care, Sauna/Hot tub use, Seat Belt use, Childbirth classes/Hospital facilities, , Travel, Indications for US and Screening for Aneuploidy ROS Const Denies fever(s), Reports system reviewed and no additional complaints, except as docu, Reports fatigue Eyes Reports system reviewed and no additional complaints, except as docu ENT Reports system reviewed and no additional complaints, except as docu Card Denies chest pain, Denies shortness of breath Resp Reports system reviewed and no additional complaints, except as docu, Denies shortness of breath, Denies cough GI Reports nausea, Denies abdominal pain Reports system reviewed and no additional complaints, except as docu Musc Reports system reviewed and no additional complaints, except as docu Skin/Breast Reports system reviewed and no additional complaints, except as docu Neuro Yes system reviewed and no additional complaints, except as docu Psych Reports system reviewed and no additional complaints, except as docu Endo Reports fatigue, Reports system reviewed and no additional complaints, except as docu Exam Const General: healthy appearing, comfortable, no acute distress Orientation: alert [facility] Head: normal to inspection, atraumatic, normocephalic Ears: external ears normal, hearing grossly normal bilaterally Nose: nares normal, external nose normal Mouth: oral mucosae normal Teeth and gingiva: dentition normal Eyes General: appearance normal, both eyes and all related structures Neck Neck: no lymphadenopathy, supple, normal visual inspection Thyroid: thyroid normal Chest Chest palpation AND inspection: normal inspection of the chest Breast inspection: normal inspection of the breasts, normal inspection of the axillae Breast palpation: normal palpation of the breasts, normal palpation of the axillae Resp Effort AND Inspection: normal respiratory effort GI Inspection: normal to inspection Palpation: soft, no hepatosplenomegaly General: bladder normal to palpation External Female Exam: normal external appearance, normal appearance of the urethra Urethra: normal appearance of the urethra Speculum Exam - Vagina: normal appearance of the vagina, normal vaginal discharge Speculum Exam - Cervix: normal appearance of the cervix Bimanual Exam- Vagina AND Uterus: bladder normal to palpation, normal bimanual exam, uterus non-tender, other Bimanual Exam- Adnexa, other: adnexae non-tender Skin General: no rashes or lesions noted Neuro Motor: muscle tone normal throughout, no movement abnormalities noted Extrem General: normal to inspection, full ROM Assessment AND Plan Problems 1. Encounter for supervision of other normal in first trimester Z34.81 ALVIN 01/15/18 PC Sanya Katie 2. 7 weeks gestation of Z3A.01 3. screening encounter Z36.9 declines genetic screening Plan Patient oriented to practice and discussed care expectations and screenings. ACOG book offered to patient. labs and 19-20 week anatomy ultrasound ordered. Genetic screening offered to patient and patient chose: declines at this time Orders Orders: Supplemental Info ACOG book given and patient encouraged to read about nutrition, exercise, weight gain, and food avoidance in . Coding Level of Care Code OB Routine Diagnoses Encounter for supervision of other normal in first trimester Z34.81 Normal : other normal Trimester: first trimester 7 weeks gestation of Z3A.01 screening encounter Z36.9 06/02/17 1115 <Electronically signed by Dior Galvan MD> Date Dior Quintero Signature: Date (if applicable) CC: ALLERGIES ALLERGIES DATE TYPE / CODE NAME / CODE REACTION SEVERITY SOURCE 03/29/2018 Drug No Known Unknown [facility] Allergy/4160 Allergies/F00 Hospital 77847(SNOMED 0790056(RXNOR Repository CT) M) ENCOUNTERS ENCOUNTERS ADMIT/DISCHARGE ACCOUNT ADMITTING ENCOUNTER LOCATION SOURCE NUMBER CLASS 04/01/2018 [id number] Ambulatory [place] 4 [facility] ing:OPUS Repository 03/29/2018/ [id number] Ambulatory BMSBuilding:B [place] 8 6 [facility] Repository 02/22/2018 [id number] Ambulatory [place] 9 [facility] ing:LABSPEC Repository 02/22/2018/ [id number] Ambulatory BMSBuilding:B [place] 8 8 [facility] Repository 01/15/2018 [id number] Mandy, Ambulatory [place] 7 Dior [facility] ing:WP Repository 01/14/2018 [id number] Ambulatory BMSBuilding:B [place] 8 [facility] Repository 01/10/2018/ [id number] aMndy, Inpatient [place] 8 6 Dior [facility] ing:WPRoom: Repository [id number]: 1 01/10/2018 [id number] Mandy, Ambulatory BMSBuilding:B [place] 6 Dior [facility] Repository 01/10/2018 [id number] Mandy, Ambulatory BMSBuilding:B [place] 0 Dior [facility] Repository 01/08/2018/ [id number] Ambulatory BMSBuilding:B [place] 8 8 [facility] Repository 01/01/2018/ [id number] Ambulatory BMSBuilding:B [place] 8 5 [facility] Repository 12/22/2017/ [id number] Ambulatory BMSBuilding:B [place] 8 6 [facility] Hospital Repository 12/18/2017 [id number] Ambulatory [place] 8 [facility] Hospital ing:LABSPEC Repository 12/18/2017/ [id number] Ambulatory BMSBuilding:B [place] 8 9 [facility] Repository 12/11/2017/ [id number] Ambulatory BMSBuilding:B [place] 8 7 [facility] Repository 11/30/2017 [id number] Ambulatory [place] 8 [facility] Hospital ing:MASS Repository 11/23/2017/ [id number] Ambulatory BMSBuilding:B [place] 8 0 [facility] Repository 11/13/2017/ [id number] Ambulatory BMSBuilding:B [place] 8 1 [facility] Repository 10/19/2017/ [id number] Ambulatory BMSBuilding:B [place] 8 5 [facility] Repository 10/19/2017 [id number] Ambulatory [place] 4 [facility] Hospital ing:EMPH Repository 10/19/2017 [id number] Ambulatory [place] 0 [facility] Hospital ing:LAB Repository 10/19/2017/ [id number] Ambulatory BMSBuilding:B [place] 8 0 [facility] Repository 09/21/2017/ [id number] Ambulatory BMSBuilding:B [place] 8 9 [facility] Repository 09/14/2017/ [id number] Ambulatory BMSBuilding:B [place] 8 5 [facility] Repository 09/10/2017/ [id number] Ambulatory BMSBuilding:B [place] 8 4 [facility] Repository 09/01/2017/ [id number] Ambulatory BMSBuilding:B [place] 8 9 [facility] Repository 08/28/2017/ [id number] Ambulatory BMSBuilding:B [place] 8 5 [facility] Repository 08/28/2017 [id number] Ambulatory [place] 0 [facility] ing:US Repository 07/29/2017/ [id number] Ambulatory BMSBuilding:B [place] 8 9 [facility] Repository 07/03/2017/ [id number] Ambulatory BMSBuilding:B [place] 8 2 [facility] Repository 06/02/2017 [id number] Ambulatory [place] 4 [facility] ing:LAB Repository 06/02/2017/ [id number] Ambulatory BMSBuilding:B [place] 8 2 [facility] Repository PAYERS PAYERS ENCOUNTER GUARANTOR PAYER SUBSCRIBER SOURCE 04/01/2018 CLINT L Primary Insurance:[facility] CLINT العراقي [place] [id number] [facility] [address] [id number] Hospital [address]Bfg: (330) Number: Repository [phone] () [id number] Date:3664-17-96[address]GPIASV, [place] [address]QF: CHECK WEBSITE 04/01/2018 Secondary NOT GIVENUNK [place] Insurance:SELF PAY [facility] Number: Effective Repository Date:2018-03-29 03/29/2018 CLINT L Primary Insurance:[facility] CLINT Dulce Maria [place] [id number] [facility] MACKEYDOB: [address] [id number] [address]Svt: (330) Number: Repository [phone] () [id number] Date:2426-68-01[address] [address]ZD[place], [place] [address]PM: CHECK WEBSITE 03/29/2018 Secondary NOT GIVENUNK [place] Insurance:SELF PAY [facility] Number: Effective Repository Date:2018-03-29 02/22/2018 CLINT L Primary Insurance:[facility] CLINT L [place] [id number] [facility] MACKEYDOB: [address] [id number] Hospital [address]Yjj: (330) Number: Repository [phone] () [id number] Date:5827-41-66[address] [address]YJ[address], [place] [address]QJ: CHECK WEBSITE 02/22/2018 Secondary NOT GIVENUNK [place] Insurance:SELF PAY [facility] Number: Effective Repository Date:2018-02-22 02/22/2018 CLINT L Primary Insurance:[facility] CLINT L [place] [id number] [facility] [address] [id number] Hospital [address]Cto: (330) Number: Repository [phone] () [id number] Date:7794-77-06YV [address] [address]EPDLCJBXX, [place] [address]RG: CHECK WEBSITE 02/22/2018 Secondary NOT GIVENUNK [place] Insurance:SELF PAY [facility] Number: Effective Repository Date:2018-02-22 01/15/2018 CLINT L Primary Insurance:[facility] CLINT L [place] [id number] [facility]: [address] [id number] Hospital [address]Aas: (330) Number: Repository [phone] () [id number] Date:9799-71-71XI [address] [address]RZS[place], [place] [address]AU: CHECK WEBSITE 01/15/2018 Secondary NOT GIVENUNK [place] Insurance:SELF PAY [facility] Number: Effective Repository Date:2017-12-28 01/14/2018 CLINT L Primary Insurance:[facility] CLINT L [place] [id number] [facility]: [address] [id number] [facility] [address]Zvx: (330) Number: Repository [phone] () [id number] Date:4635-99-59SH [address] [address]DQWWOYKGH, [place] [address]MD: CHECK WEBSITE 01/14/2018 Secondary NOT GIVENUNK [place] Insurance:SELF PAY [facility] Number: Effective Repository Date:2018-01-08 01/10/2018 CLINT L Primary Insurance:[facility] CLINT العراقي [place] [id number] [facility]: [address] [id number] Hospital [address]Mcz: (330) Number: Repository [phone] () [id number] Date:1005-17-92TQ [address] [address]CGVQYRONF, [place] [address]LM: CHECK WEBSITE 01/10/2018 Secondary NOT GIVENUNK [place] Insurance:SELF PAY [facility] Number: Effective Repository Date:2018-01-10 01/10/2018 CLINT L Primary Insurance:[facility] [place] [id number] [facility]: [address] 6979-03-95Q[place] [address]Tel: (330) Number: Repository [phone] () [id number] Date:8576-57-75WE [address] [address]EEKGJERRM, [place] [address]UX: CHECK WEBSITE 01/10/2018 Secondary NOT GIVENUNK [place] Insurance:SELF PAY [facility] Number: Effective Repository Date:2018-01-10 01/10/2018 [place] Primary Insurance:[facility] [place] Pazoster [id number] [facility]: [address] [id number] Hospital [address]Zgh: (330) Number: Repository [phone] () [id number] Date:4297-71-67BS [address] [address]VVFKBPEDJ, [place] [address]YS: CHECK WEBSITE 01/10/2018 Secondary NOT GIVENUNK Ronnie Insurance:SELF PAY [facility] Number: Effective Repository Date:2018-01-10 01/08/2018 [place] Primary Insurance:[facility] [place] [id number] [facility]: [address] 2008-06-35VZG Hospital [address]Hmu: (330) Number: Repository [phone] () [id number] Date:6702-23-35QN [address] [address]MDSKJCNZQ, [place] [address]ZF: CHECK WEBSITE 01/08/2018 Secondary NOT GIVENUNK [place] Insurance:SELF PAY [facility] Number: Effective Repository Date:2018-01-08 01/01/2018 [place] Primary Insurance:[facility] [place]nie [id number] [facility] MACKEYDOB: [address] 1997-99-95EDYScott [place] [address]Tel: (330) Number: Repository [phone] () [id number] Date:3905-95-78OW [address] [address]PUXDHJXJX, [place] [address]UR: CHECK WEBSITE 01/01/2018 Secondary NOT GIVENUNK Ronnie Insurance:SELF PAY [facility] Number: Effective Repository Date:2018-01-01 12/22/2017 [place] Primary Insurance:[facility] [place] [id number] [facility]: [address] 5452-02-94OVZ[place] [address]Tel: (330) Number: Repository [phone] () [id number] Date:3689-62-20YL [address] [address]IMMLRLNYF, [place] [address]UQ: CHECK WEBSITE 12/22/2017 Secondary NOT GIVENUNK Ronnie Insurance:SELF PAY [facility] Number: Effective Repository Date:2017-12-22 12/18/2017 [place] Primary Insurance:[facility] [place] [id number] [facility]: [address] 9402-99-06RZLScott [place] [address]Tel: (330) Number: Repository [phone] () [id number] Date:8351-58-78IU [address] [address]JPJQVMQLR, [place] [address]CK: CHECK WEBSITE 12/18/2017 Secondary NOT GIVENUNK [place] Insurance:SELF PAY [facility] Number: Effective Repository Date:2017-12-18 12/18/2017 [place] Primary Insurance:[facility] [place] [id number] [facility] MACKEYDOB: [address] [id number] Hospital [address]Ujk: (330) Number: Repository [phone] () [id number] Date:1957-93-82SW [address] [address]MDBFDCXQX, [place] [address]OB: CHECK WEBSITE 12/18/2017 Secondary NOT GIVENUNK [place] Insurance:SELF PAY [facility] Number: Effective Repository Date:2017-12-18 12/11/2017 [place] Primary Insurance:[facility] [place] L Ronnie [id number] CR [facility] MACKEYDOB: [address] [id number] Hospital [address]Vzh: (330) Number: Repository [phone] () [id number] Date:7067-57-44RQ [address] [address]VHAPOXIOE, [place] [address]GF: CHECK WEBSITE 12/11/2017 Secondary NOT GIVENUNK [place] Insurance:SELF PAY [facility] Number: Effective Repository Date:2017-12-11 11/30/2017 [place] Primary NOT GIVENUNK [place] [id number] CR Insurance:SELF PAY [address] [address]Fkd: (330) Number: Effective Repository [phone] () Date:2017-11-30 11/23/2017 [place] Primary Insurance:[facility] [place] [id number] [facility] ILLEYDOB: [address] 5404-06-92HLA Hospital [address]Qlu: (330) Number: Repository [phone] () [id number] Date:1373-60-79FH [address] [address]SQVPJKGRT, [place] [address]RM: CHECK WEBSITE 11/23/2017 Secondary NOT GIVENUNK Ronnie Insurance:SELF PAY [facility] Number: Effective Repository Date:2017-11-23 11/13/2017 [place] Primary Insurance:[facility] [place] L Ronnie [id number] CR [facility] ILLEYDOB: [address] [id number] Hospital [address]Wwc: (330) Number: Repository [phone] () [id number] Date:8874-31-89EA [address] [address]HUECPHMDY, [place] [address]XH: CHECK WEBSITE 11/13/2017 Secondary NOT GIVENUNK [place] Insurance:SELF PAY [facility] Number: Effective Repository Date:2017-11-13 10/19/2017 [place] Primary Insurance:[facility] [place] Dulce Maria [place] [id number] [facility] ILLEYDOB: [address] [id number] Hospital [address]Bxt: (330) Number: Repository [phone] () [id number] Date:0754-80-49FY [address] [address]XDCAYOLJD, [place] [address]WX: CHECK WEBSITE 10/19/2017 Secondary NOT GIVENUNK [place] Insurance:SELF PAY [facility] Number: Effective Repository Date:2017-10-19 10/19/2017 [place] Primary NOT GIVENUNK Ronnie [id number] CR Insurance:SELF PAY [place] [address]Tel: (330) Number: Effective Repository [phone] () Date:2017-10-19 10/19/2017 [place] Primary Insurance:[facility] [place] Dulce Maria Ron[place] [id number] CR [facility] ILLEYDOB: [address] [id number] Hospital [address]Fdy: (330) Number: Repository [phone] () [id number] Date:0913-50-22YK [address] [address]EVZVLTZBR, [place] [address]AZ: CHECK WEBSITE 10/19/2017 Secondary NOT GIVENUNK [place] Insurance:SELF PAY [facility] Number: Effective Repository Date:2017-10-19 10/19/2017 [place] Primary Insurance:[facility] [place] L Ronnie [id number] CR [facility] ILLEYDOB: [address] [id number] Hospital [address]Xiv: (330) Number: Repository [phone] () [id number] Date:3692-89-91XX [address] [address]NZPOUZLVO, [place] [address]ZO: CHECK WEBSITE 10/19/2017 Secondary NOT GIVENUNK [place] Insurance:SELF PAY [facility] Number: Effective Repository Date:2017-10-19 09/21/2017 [place] Primary Insurance:[facility] [place] [id number] [facility]: [address] [id number] Hospital [address]Hwz: (330) Number: Repository [phone] () [id number] Date:9866-59-09SS [address] [address]XQUUNFCRI, [place] [address]LA: CHECK WEBSITE 09/21/2017 Secondary NOT GIVENUNK [place] Insurance:SELF PAY [facility] Number: Effective Repository Date:2017-09-21 09/14/2017 [place] Primary Insurance:[facility] [place] [id number] [facility]: [address] 3067-31-53BWXScott [place] [address]Tel: (330) Number: Repository [phone] () [id number] Date:4550-87-11WS [address] [address]LNHVFHKIG, [place] [address]XM: CHECK WEBSITE 09/14/2017 Secondary NOT GIVENUNK [place] Insurance:SELF PAY [facility] Number: Effective Repository Date:2017-09-14 09/10/2017 [place] Primary Insurance:[facility] [place] [id number] [facility]: [address] 2318-02-62NHVScott [place] [address]Tel: (330) Number: Repository [phone] () [id number] Date:6606-37-17OB [address] [address]TRCZSZGUP, [place] [address]OX: CHECK WEBSITE 09/10/2017 Secondary NOT GIVENUNK [place] Insurance:SELF PAY [facility] Number: Effective Repository Date:2017-09-10 09/01/2017 [place] Primary Insurance:[facility] [place] [id number] CR [facility] MACKEYDOB: [address] [id number] Hospital [address]Yev: (330) Number: Repository [phone] () [id number] Date:2165-16-25SZ [address] [address]LIUFDNRQB, [place] [address]YT: CHECK WEBSITE 09/01/2017 Secondary NOT GIVENUNK [place] Insurance:SELF PAY [facility] Number: Effective Repository Date:2017-09-01 08/28/2017 [place] Primary Insurance:[facility] [place] L Ronnie [id number] CR [facility] MACKEYDOB: [address] 7705-50-20PBC Hospital [address]Chu: (330) Number: Repository [phone] () [id number] Date:8809-06-22ND [address] [address]IBPAHPZJL, [place] [address]KO: CHECK WEBSITE 08/28/2017 Secondary NOT GIVENUNK [place] Insurance:SELF PAY [facility] Number: Effective Repository Date:2017-08-28 08/28/2017 [place] Primary Insurance:[facility] [place] L [place] [id number] [facility] WILLIST[facility]: [address] [id number] Hospital [address]Lgb: (330) Number: Repository [phone] () [id number] Date:3812-06-95DP [address] [address]APGVPMASH, [place] [address]LG: CHECK WEBSITE 08/28/2017 Secondary NOT GIVENUNK [place] Insurance:SELF PAY [facility] Number: Effective Repository Date:2017-07-29 07/29/2017 [place] Primary Insurance:[facility] [place] L Ronnie [id number] [facility]: [address] 8616-20-05[facility] [address]Fon: Number: Repository [id number] () Date:2097-95-62GK [address] [address]YIALFAWIQ, [place] [address]NN: CHECK WEBSITE 07/29/2017 Secondary NOT GIVENUNK [place] Insurance:SELF PAY [facility] Number: Effective Repository Date:2017-07-29 07/03/2017 [place] Primary Insurance:[facility] [place]nie [id number] [facility]: [address] 0358-35-55[facility] [address]Mcv: Number: Repository [id number] (HP) Date:9120-22-65LS [address] [address]GZPYQTEGQ, [place] [address]NE: CHECK WEBSITE 07/03/2017 Secondary NOT GIVENUNK [place] Insurance:SELF PAY [facility] Number: Effective Repository Date:2017-06-02 06/02/2017 [place] Primary Insurance:[facility] [place] Pazoster [id number] [facility]ENTERB: [address] [id number] Hospital [place] [address]Qod: Number: Repository [id number] () Date:0966-82-25DD [address] [address]YGAOEXNLB, [place] [address]KJ: CHECK WEBSITE 06/02/2017 Secondary NOT GIVENUNK [place] Insurance:SELF PAY [facility] Number: Effective Repository Date:2017-06-02 06/02/2017 [place] Primary Insurance:[facility] [place] [id number] [facility]: [facility] [id number], Number: Repository [place] [address]Xad: [id number] Date:0125-34-39NU [address] () [address]OJXDLWRPP, [place] [address]IR: CHECK WEBSITE 06/02/2017 Secondary NOT GIVENUNK [place] Insurance:SELF PAY [facility] Number: Effective Repository Date:2017-06-02
== END ==
PROVIDERS: Family Provider Family Medicine; PCP Family Medicine; Referring Provider Nurse Practitioner Women's Health; Visit Provider Nurse Practitioner Women's Health
DX: Z30.431 Encounter for routine checking of intrauterine contraceptive device (principal)
CPT/HCPCS: 76830; 76856

== ENCOUNTER → 2018-12-20 14:38 | Outpatient (CLI) | payer OTHER, SELFPAY ==
[2018-12-20 14:29] VITALS: BMI 33.1
[2018-12-20 15:50] LABS: Absolute Lymphocyte Count 2.47 X10^3/uL (0.83-4.51); Absolute Neutrophil Count 8.9 X10^3/uL (2.0-7.7); Basophil# 0.05 X10^3/uL; Basophil% 0.4 % (0-1); Eosinophil# 0.14 X10^3/uL; Eosinophils% 1.1 % (0-5); Hematocrit 42.5 % (37-47); Hemoglobin 14.2 g/dL (12.0-15.0); Lymphocyte # 2.47 X10^3/ul (4.0); Lymphocyte % 19.9 % (19-41); Mean Corp Hgb Conc 33.4 g/dL (32-36); Mean Corpuscular Volume 92.8 fL (81-99); Mean Platelet Vol. 10.2 fl (6.2-12.0); Monocyte% 6.4 % (0-10); NRBC Flagged by Analyzer 0 % (0-5); Neutrophil # 8.92 X10^3/uL (2.7-7.7); Neutrophil % 71.7 % (47-70); Platelet Count 194 K/mm3 (150-450); RBC Distribution Width CV 12.4 % (11.6-14.6); RBC Distribution Width SD 42.2 fl (35.1-43.9); Red Blood Count 4.58 M/mm3 (4.2-5.4); White Blood Count 12.4 K/mm3 (4.4-11.0)
[2018-12-20 17:14] LABS: HIV - WCH Non-Reactive (Nonreactive); Rubella IgG 252.5 IU/mL
[2018-12-20 18:01] LABS: Chlamydia Trachomatis by PCR Negative (Negative); Neisserai gonorrhoeae by PCR Negative (Negative); Probe Check PASS; Sample Adequacy Control PASS; Specimen Processing Control PASS
[2018-12-24 01:38] LABS: Rapid Plasmin Reagin (RPR) NONREACTIVE (NONREACTIVE)
== END ==
PROVIDERS: Family Provider Family Medicine; PCP Family Medicine; Referring Provider Obstetrics & Gynecology; Visit Provider Obstetrics & Gynecology
DX: Z34.80 Encounter for supervision of other normal pregnancy, unspecified trimester (principal)
CPT/HCPCS: 36415; 85025; 86592; 86703; 86762; 86850; 86900; 86901; 87086; 87088; 87491; 87591

== ENCOUNTER → 2019-01-07 11:54 | Outpatient (CLI) | payer OTHER, SELFPAY ==
[2019-01-07 10:42] VITALS: BMI 31.4
== END ==
PROVIDERS: Family Provider Family Medicine; PCP Family Medicine; Referring Provider Obstetrics & Gynecology; Visit Provider Obstetrics & Gynecology
DX: Z34.81 Encounter for supervision of other normal pregnancy, first trimester (principal)
CPT/HCPCS: 36415

== ENCOUNTER → 2019-05-03 09:05 | Outpatient (CLI) | payer OTHER, SELFPAY ==
[2019-05-02 10:01] VITALS: BMI 33.1
[2019-05-03 09:32] LABS: Absolute Lymphocyte Count 1.73 X10^3/uL (0.83-4.51); Absolute Neutrophil Count 7.9 X10^3/uL (2.0-7.7); Basophil# 0.03 X10^3/uL; Basophil% 0.3 % (0-1); Eosinophil# 0.08 X10^3/uL; Eosinophils% 0.8 % (0-5); Hematocrit 41.1 % (37-47); Hemoglobin 13.4 g/dL (12.0-15.0); Lymphocyte # 1.73 X10^3/ul (4.0); Lymphocyte % 16.5 % (19-41); Mean Corp Hgb Conc 32.6 g/dL (32-36); Mean Corpuscular Hgb 30.7 pg (27.0-32.0); Mean Corpuscular Volume 94.3 fL (81-99); Mean Platelet Vol. 10.2 fl (6.2-12.0); Monocyte# 0.69 X10^3/uL; Monocyte% 6.6 % (0-10); NRBC Flagged by Analyzer 0 % (0-5); Neutrophil # 7.92 X10^3/uL (2.7-7.7); Neutrophil % 75.2 % (47-70); Platelet Count 192 K/mm3 (150-450); RBC Distribution Width CV 12.6 % (11.6-14.6); RBC Distribution Width SD 43.9 fl (35.1-43.9); Red Blood Count 4.36 M/mm3 (4.2-5.4); White Blood Count 10.5 K/mm3 (4.4-11.0)
[2019-05-03 09:58] LABS: Glucose Challenge Gest 1H 50g 88 mg/dL (70-140)
== END ==
PROVIDERS: Family Provider Family Medicine; PCP Family Medicine; Referring Provider Obstetrics & Gynecology; Visit Provider Obstetrics & Gynecology
DX: Z34.80 Encounter for supervision of other normal pregnancy, unspecified trimester (principal)
CPT/HCPCS: 36415; 82950; 85025

== ENCOUNTER → 2019-05-19 13:54 | Outpatient (CLI) | payer OTHER, SELFPAY ==
[2019-05-19 13:25] VITALS: BMI 33.1
[2019-05-19 15:36] LABS: Hepatitis B Surface Antigen Non-Reactive (Nonreactive); Hepatitis C Antibody Non-Reactive (Nonreactive)
== END ==
PROVIDERS: Nurse Practitioner Women's Health; PCP Family Medicine; Referring Provider Obstetrics & Gynecology; Visit Provider Obstetrics & Gynecology
DX: Z34.80 Encounter for supervision of other normal pregnancy, unspecified trimester (principal)
CPT/HCPCS: 36415; 86803; 87340

== ENCOUNTER 2019-06-09 13:09 | Emergency (ER) | payer OTHER, SELFPAY ==
[2019-05-30 08:27] VITALS: BMI 33.1
[2019-06-09 13:09] VITALS: BP 142/78; PULSE 84; RESP 28; TEMP 36.6; O2SAT 96; BMI 35.7
[2019-06-09 13:24] VITALS: O2SAT 96
--- NOTE | 2019-06-09 14:21 | EKG12_ITS ---
Test Reason : Blood Pressure : / mmHG Vent. Rate : 072 BPM Atrial Rate : 072 BPM P-R Int : 146 ms QRS Dur : 086 ms QT Int : 384 ms P-R-T Axes : 045 060 026 degrees QTc Int : 420 ms Normal sinus rhythm Normal ECG Confirmed by DEBORAH MCLAIN, IMELDA ([id number]), content editor JAH SHELTON ([id number]) on 06/13/2019 10:46:47 AM Referred By: MIKAL Confirmed By:AVERY CABRERA MD
[2019-06-09 14:26] VITALS: PULSE 85; RESP 20; O2SAT 95
[2019-06-09 14:33] LABS: Absolute Lymphocyte Count 2.19 X10^3/uL (0.83-4.51); Absolute Neutrophil Count 6.8 X10^3/uL (2.0-7.7); Basophil# 0.04 X10^3/uL; Basophil% 0.4 % (0-1); Eosinophil# 0.05 X10^3/uL; Eosinophils% 0.5 % (0-5); Hematocrit 39.9 % (37-47); Hemoglobin 13.3 g/dL (12.0-15.0); Lymphocyte # 2.19 X10^3/ul (4.0); Lymphocyte % 22.6 % (19-41); Mean Corp Hgb Conc 33.3 g/dL (32-36); Mean Corpuscular Hgb 30.8 pg (27.0-32.0); Mean Corpuscular Volume 92.4 fL (81-99); Mean Platelet Vol. 10.7 fl (6.2-12.0); Monocyte# 0.57 X10^3/uL; Monocyte% 5.9 % (0-10); NRBC Flagged by Analyzer 0 % (0-5); Neutrophil # 6.78 X10^3/uL (2.7-7.7); Platelet Count 185 K/mm3 (150-450); RBC Distribution Width CV 12.2 % (11.6-14.6); RBC Distribution Width SD 41.8 fl (35.1-43.9); Red Blood Count 4.32 M/mm3 (4.2-5.4); White Blood Count 9.7 K/mm3 (4.4-11.0)
[2019-06-09 14:43] LABS: ALB/GLOB Ratio 0.6 RATIO (0.9-2.4); AST(SGOT) 15 U/L (15-37); Alanine Aminotransfer ALT/SGPT 18 U/L (13-56); Albumin, Serum 2.7 g/dL (3.2-5.0); Alkaline Phosphatase 69 U/L (45-117); Anion Gap 6 (5-15); BUN 9 mg/dL (7-18); BUN/Creat Ratio 12.9 RATIO (10-20); Calcium,Total 8.3 mg/dL (8.5-10.1); Chloride 110 mmol/L (98-107); EST Glomerular Filtration Rate 106 mL/min (>60); Est Glom Filt Rate - Afr Amer 128 mL/min (>60); Estimated Creatinine Clearance 107.67 ml/min; Globulin 4.4 g/dL (2.2-4.2); Glucose 112 mg/dL (74-106); Lipase 156 U/L (73-393); Potassium 3.9 mmol/L (3.5-5.1); Protein, Total 7.1 g/dL (6.4-8.2); Sodium Level 137 mmol/L (136-145)
--- NOTE | 2019-06-09 15:00 | ED.VIS.GEN ---
History of Present Illness Chief Complaint: Shortness of Breath Informant: Patient Onset: Today Narrative: She was approximately 32 weeks and tells me that approximately [address] to lunch she developed a sharp pain epigastrium up underneath her right lower ribs. No radiation to the back of the shoulders. No vomiting. It hurts to move and was constant. She ate lunch consisting of mashed potatoes. Then she came to the emergency department as it did not resolve but after approximately 1 hour 15 minutes it did resolve. She states that this which is her third has been on eventful. She has had some indigestion but it has not been anything out of the ordinary. She states she had a similar like pain a few weeks ago but not to this degree. She sees Dr. Galvan for obstetrics. Past Medical History - Allergies and Home Meds Allergies/Adverse Reactions: Allergies No Known Allergies Allergy (Verified 06/09/19 13:34) Primary Care Physician: Laverne Mitchell DO [Primary Care Provider] - As soon as possible Dior Galvan MD [STAFF PHYSICIAN] - Keep Kelvin appointment Smoking Status: Never smoker Review of Systems General: Denies: Chills, Fever, Sweats Eyes: Denies: Visual changes - bilaterally, Diplopia ENT: Denies: Rhinorrhea, Sore throat Cardiovascular: Denies: Chest pain, Palpitations Respiratory: Denies: Dyspnea, Cough, Dyspnea on exertion Gastrointestinal: Reports: Abdominal pain. Denies: Nausea, Vomiting, Diarrhea, Melena, Hematochezia Genitourinary: Denies: Dysuria, Hematuria, Frequency Musculoskeletal: Denies: Back pain, Extremity Pain Skin: Denies: Rash, Wounds Neurological: Denies: Headache, Weakness, Numbness Physical Exam Vital Signs/Narrative: Vital Signs Temp Pulse Resp BP Pulse Ox 06/09/19 14:26 85 20 H 95 06/09/19 13:09 98 F 84 28 H 142/78 H 96 Inital Vital Signs reviewed: Yes General: Well nourished, Well developed, No Acute Distress Head: Normocephalic, Atraumatic Eyes: Perrl, EOMI ENT: Moist mucous membranes, No rhinorrhea Neck: Supple, Nontender Cardiovascular: Regular rate, Regular rhythm, No murmurs Respiratory: No distress, CTA bilaterally, Chest nontender Abdomen: Soft, Nontender, Nondistended, Normal bowel sounds Back: Nontender, Normal Inspection Extremities: Nontender, No edema Skin: Normal color, No rash Neurological: Alert, Oriented x3, Cranial nerves II-XII grossly intact, Normal Strength, Normal Sensation Psychological: Normal affect, Normal Mood Diagnostic/Tx/Re-eval - Rhythm Strip Rhythm Strip: Sinus Rhythm Rate: 72 Ectopy: None - Medical Decision Making KG is a normal sinus rhythm. No concerning features of ACS. She is not tachycardic not hypoxic not dyspneic. Her symptoms have resolved and I doubt that this is a pulmonary embolism I do not believe the risk of CT is outweighs the benefits as I would anticipate a negative scan. Basic labs are normal. Bedside ultrasound shows heart rate at 146 with good activity. Unfortunately the patient ate prior to arrival and her gallbladder is contracted limiting that study. At this point I spoke with Dr. galvan. We will discharge the patient home. Return if worsening or concerns. ED Disposition - Plan for ED Patient: Disposition: Home or Assisted Living Diagnosis: Abdominal pain complicating Instructions: EPIGASTRIC PAIN (Uncertain cause) Referrals: Laverne Mitchell DO [Primary Care Provider] - As soon as possible Dior Galvan MD [STAFF PHYSICIAN] - Keep Kelvin appointment
[2019-06-09 15:22] VITALS: PULSE 76; RESP 18; O2SAT 94
== END 2019-06-09 15:23 | disposition home or self-care (01) ==
PROVIDERS: Emergency Provider Emergency Medicine; PCP Family Medicine
DX: O26.893 Other specified pregnancy related conditions, third trimester (principal); R10.13 Epigastric pain; Z3A.32 32 weeks gestation of pregnancy
CPT/HCPCS: 80053; 83690; 85025; 93005; 99285; A4216

== ENCOUNTER → 2019-07-14 | Outpatient (CLI) | payer OTHER, SELFPAY ==
[2019-07-14 14:00] VITALS: BMI 35.7
== END | disposition home or self-care (01) ==
LOC: LABSPEC 16:50
PROVIDERS: PCP Family Medicine; Referring Provider Nurse Practitioner Women's Health; Visit Provider Nurse Practitioner Women's Health
DX: Z34.93 Encounter for supervision of normal pregnancy, unspecified, third trimester (principal)
CPT/HCPCS: 87081

== ENCOUNTER 2019-07-24 12:20 | Outpatient (CLI) | payer OTHER, SELFPAY ==
[2019-07-22 09:39] VITALS: BMI 35.7
[2019-07-24 12:26] VITALS: BP 124/75; PULSE 66; TEMP 36.8; O2SAT 95
[2019-07-24 12:31] VITALS: BP 124/75; PULSE 66
[2019-07-24 12:44] VITALS: BMI 37.4
--- NOTE | 2019-07-27 07:06 | OB.TRI.PN ---
Progress Notes Date of Service: 07/24/19 Progress Note: Patient presents for triage evaluation secondary to contractions FHT: 130 Moderate variability reactive no decelerations category I tracing [place]: Every 5 to 8 contractions Assessment and plan: False labor no cervical change reactive NST, reassuring maternal and status patient discharged to home to follow-up as scheduled. See problem list details for additional plan information. Multi Select Codes - Urinary/Genital Urinary/Genital CPT Codes: 83015-14 non-stress test Interp
== END 2019-07-24 13:20 | disposition home or self-care (01) ==
LOC: WPOUT 12:26 → OBT 12:28
PROVIDERS: PCP Family Medicine; Visit Provider Obstetrics & Gynecology
DX: O47.9 False labor, unspecified (principal); Z3A.00 Weeks of gestation of pregnancy not specified
CPT/HCPCS: 59025; 59050; 99218; G0378

== ENCOUNTER 2019-07-30 01:48 | Inpatient (IN) | payer OTHER, SELFPAY ==
[2019-05-30 08:27] VITALS: BMI 33.1
[2019-07-29 11:49] VITALS: BMI 37.4
[2019-07-30] VITALS (34 sets, daily range): BP systolic 94–135; BP diastolic 52–81; PULSE 64–98; RESP 12–18; TEMP 36.2–36.7; O2SAT 95–98; BMI 37.4
[2019-07-30] MEDS: Lactated Ringers 1,000 ML 50 ML IV (02:10)
[2019-07-30 02:33] LABS: Absolute Lymphocyte Count 1.72 X10^3/uL (0.83-4.51); Absolute Neutrophil Count 4.6 X10^3/uL (2.0-7.7); Basophil# 0.01 X10^3/uL; Basophil% 0.1 % (0-1); Eosinophil# 0.11 X10^3/uL; Eosinophils% 1.5 % (0-5); Hematocrit 36.6 % (37-47); Hemoglobin 11.9 g/dL (12.0-15.0); Lymphocyte # 1.72 X10^3/ul (4.0); Lymphocyte % 23.3 % (19-41); Mean Corp Hgb Conc 32.5 g/dL (32-36); Mean Corpuscular Volume 89.3 fL (81-99); Mean Platelet Vol. 11.2 fl (6.2-12.0); Monocyte% 12.2 % (0-10); NRBC Flagged by Analyzer 0 % (0-5); Neutrophil # 4.59 X10^3/uL (2.7-7.7); Neutrophil % 62.4 % (47-70); Platelet Count 174 K/mm3 (150-450); RBC Distribution Width CV 12.7 % (11.6-14.6); RBC Distribution Width SD 41.1 fl (35.1-43.9); White Blood Count 7.4 K/mm3 (4.4-11.0)
[2019-07-30] MEDS: Lactated Ringers 500 ML 999 ML IV (05:00)
[2019-07-30] MEDS: fentaNYL-bupivacaine (epidural) 100 ML BAG EPIDURAL (05:50)
--- NOTE | 2019-07-30 06:30 | HP.PCM_ITS ---
- Problem List (1) Active labor Status: Acute (2) SROM (spontaneous rupture of membranes) Status: Acute (3) Status: Acute Qualifiers: Comment: PRR ALVIN: 08/05/2019 Boy PC: Diego Segundo Spouse: Kalpesh (4) Supervision of other normal Status: Acute Comment: Declined carrier and afp screening. Panorama low risk. normal anatomy History Date of Admission: 01/10/18 Final ALVIN: 08/05/19 Gestational age: 39 Weeks and 1 Days History of this : This is a 29 year-old, G 3P2, at 39 weeks gestational age presents in active labor with spontaneous rupture membranes clear fluid. Patient is having c ontractions every 5 to 8 minutes with no vaginal bleeding and admits good movement.. Medical History: Medical History (Last Reviewed 07/29/19 @ 11:48 by Jody Nice) Environmental allergies Z91.09 GERD (gastroesophageal reflux disease) K21.9 Heart murmur R01.1 Allergies No Known Allergies Allergy (Verified 07/29/19 11:48) Home Medications: Home Medications Pnv No.103/Folic/Om3s/Fish Oil [ Gummies] 1 ea PO DAILY 07/30/19 Smoking Status: Never smoker Alcohol: None Number of Fetus(es): 1 NST - FHR Rate Baby A Baseline: 130 Variability:: Moderate Accelerations:: 15 x 15 Decelerations:: None NST Reactive:: Yes FHR Category:: Category I Uterine Activity:: q 5-8 History Past Pregnancies: Past Pregnancies 2 previous term vaginal deliveries uncomplicated Labs: Mom's Labs & Results 07/30/19 07/30/19 02:10 02:10 WBC 7.4 RBC 4.10 L Hgb 11.9 L Hct 36.6 L MCV 89.3 MCH 29.0 MCHC 32.5 RDW Std Deviation 41.1 RDW Coeff of Hyacinth 12.7 Plt Count 174 MPV 11.2 Immature Gran % (Auto) 0.500 Neut % (Auto) 62.4 Lymph % (Auto) 23.3 Chester % (Auto) 12.2 H Eos % (Auto) 1.5 Baso % (Auto) 0.1 Absolute Neuts (auto) 4.6 Absolute Lymphs (auto) 1.72 Nucleated RBC % 0 Blood Type A POSITIVE Antibody Screen NEGATIVE Course Did the patient receive Yes care? Labs Blood Type: A RH: POSITIVE RPR/VDRL/Syphilis Nonreactive Rubella status Immune HbSAg Negative Date Done: 05/19/19 Chlamydia Negative Gonorrhea Negative HIV/AIDS Non-Reactive Group B Strep: Negative Current Obstetrical History Gestational Diabetes No Incompetent Cervix No Infertility No IUGR No Macrosomia No Hypertension/Pre-eclampsia No Placenta Previa/Abruption No PTL/PROM No Uterine anomaly No Oligohydramnios No Polyhydramnios No Multiple gestation No Past Medical History Asthma No Diabetes No Hypertension No Heart disease No Mitral valve prolapse No Neurologic/Seizure disorder/ No Migraines Kidney disease No Liver disease No Varicosities No Clotting disorders/Hx of DVT No Thyroid Dysfunction No Other medical diseases No Psychiatric disorders No Major trauma No Abnormal PAP smear No Sleep apnea No Mammogram in the last 2 years No Social History Marital Status: SINGLE Alleged father Kalpesh Hx Smoking No Smoking Status Never smoker Expected Infant Delivery Method: Spontaneous Vaginal Review of Systems Constitutional: Denies: Fever, Malaise Eyes: Denies: Blurred vision, Vision Change HEENT: Denies: Head Aches, Visual Changes Cardiovascular: Denies: Chest Pain, Palpitations Respiratory: Denies: Cough, Shortness of Breath, Wheezing Gastrointestinal: Denies: Abdominal Pain, Diarrhea, Nausea, Vomiting Genitourinary: Denies: Dysuria, Hematuria Musculoskeletal: Denies: Joint Pain, Muscle pain Skin: Denies: Lesions, Rash Neurological: Denies: Blurred vision, Focal weakness, Headaches Psychiatric: Denies: Anxiety, Depression Endocrine: Denies: Heat/ Cold Intolerance Hematologic/ Lymphatic: Denies: Easy Bruising, Easy Bleeding Physical Exam Vitals: Vital Signs Temp Pulse BP Pulse Ox 97.2 F L 82 94/52 L 96 07/30/19 06:02 07/30/19 06:12 07/30/19 06:12 07/30/19 06:11 General: Alert, Cooperative, No apparent distress HEENT: Atraumatic, Normocephalic. Negative for: Thyromegaly, Lymphadenopathy Cardiovascular: Regular rate Lungs: Normal air movement Abdomen: Soft, Non Tender, Gravid Neurological: Deep Tendon Reflexes 2+/4 and Symmetrical, Neuro grossly intact. Negative for: Clonus APPLICATION SUPPORT INTERN: Normal external genitalia. Negative for: Vulvar lesions Estimated gestational size: Appropriate for gestational size Presentation: Cephalic Cervix Dilation (cm): 5 Station: -1 Effacement (%): 60 Assessment/Plan All Active Problems (Last Reviewed 07/29/19 @ 11:48 by Jody Nice) Active labor (Acute) SROM (spontaneous rupture of membranes) (Acute) Influenza vaccination given (Acute) (Acute) Supervision of other normal (Acute) Segmental and somatic dysfunction of pelvic region (Acute) Segmental and somatic dysfunction of sacral region (Acute) Segmental and somatic dysfunction of lumbar region (Acute) This is a 29 year-old, at 39 weeks gestational age presents in active labor with spontaneous rupture membranes Patient presents IAL, plan expectant management for , . Pain management: Plans epidural. GBS negative. Management of any complications: None I have reviewed the [facility] and made any clinically relevant updates..
[2019-07-30] MEDS: Lactated Ringers 1,000 ML 200 ML IV (06:32)
[2019-07-30] MEDS: Oxytocin 30 units/NS 500 ml 30 UNITS/500 ML IV.SOLN 334 UNITS IV (08:17)
--- NOTE | 2019-07-30 08:32 | OP.PCM_ITS ---
Problem List (1) Active labor Status: Acute (2) SROM (spontaneous rupture of membranes) Status: Acute (3) Status: Acute Qualifiers: Comment: PRR ALVIN: 08/05/2019 Aleks Stuart PC: Diego Segundo Spouse: Kalpesh (4) Supervision of other normal Status: Acute Comment: Declined carrier and afp screening. Panorama low risk. normal anatomy Vaginal Delivery Maternal Presentation: Active Labor ial Amniotic Membrane Rupture Type: Spontaneous at home Amniotic Fluid Description: Clear Final ALVIN: 08/05/19 Gestational age: 39 Weeks and 1 Days Date of Procedure: 07/30/19 Pre-Operative Diagnosis: ial Post-Operative Diagnosis: same Surgery/ Procedure Performed: Spontaneous Vaginal Delivery Type of Anesthesia: Epidural Description of Procedure: Patient began pushing and delivered the head in the ANIL presentation. The head was delivered atraumatically . The anterior and posterior shoulders delivered without complication followed by the rest of the infant and the infant was placed on the maternal abdomen. Delayed cord clamping was employed for approximately 60 seconds. Cord was clamped and cut and gentle traction was applied to the cord and the placenta delivered spontaneously immediately following it was noted to be intact with three-vessel cord. The perineum and vagina were inspected and noted to have no laceration. EBL was 200 cc. Patient and infant tolerated delivery well. Presentation: DEANN Placental Delivery Description: Spontaneous Estimated Blood Loss: 200 Infant A gender: Male Episiotomy Description: None Laceration: None Medications given after delivery: IV Pitocin Complications: None Multi Select Codes - Urinary/Genital Urinary/Genital CPT Codes: 21688 Vaginal Delivery [facility]
[2019-07-30] MEDS: 0.9% Saline Lock 10 ML Syringe IV (10:53)
[2019-07-30] MEDS: Acetaminophen 500 MG Tablet 1000 MG PO (15:54)
--- NOTE | 2019-07-30 18:03 | NURSING ---
1400 States her legs feel normal and no longer feel numb. Up to the bathroom with assistance, michael well. Voids 200ml clear jaleel urine. States she felt like she emptied her bladder. Instructed in bridgette care, displays understanding. Up to the chair. 1545 Up to the bathroom, voids 400ml, michael well. States she feels like she emptied her bladder. Instructed no need to continue to measure urinary output. Voices understanding.
[2019-07-31] VITALS (7 sets, daily range): BP systolic 104–137; BP diastolic 55–85; PULSE 57–71; RESP 16–18; TEMP 36.2–36.7
--- NOTE | 2019-07-31 03:52 | DCINST_ITS ---
Discharge Diet: No Restrictions Discharge Activity: Return to Normal Activity, May not drive while taking narcotic pain medications., May Shower May resume sexual activity in: 4-6 weeks Call your doctor if your incision/area has: Continuous Slow Oozing, Sudden Increased Bleeding, Increased Pain/ Swelling, Increased Redness, Foul Smelling Discharge Additional Instructions: If you experience any of the following, contact your healthcare provider. * Bleeding that soaks a pad every hour for 2 hours * Fever 100.4 or higher * Unrelieved incision or abdominal pain * Swelling, redness, discharge or bleeding from your incision or episiotomy site * Your incision begins to separate * Problems urinating (including inability to urinate or burning while urinating). * Visual changes * Severe headache * Flu-like symptoms * Pain or redness in one of both of your breasts * Pain, warmth, tenderness or swelling in your legs, especially the calf area * Frequent nausea and vomiting * Symptoms of depression or anxiety If you experience any of the following, call 911 or go to the nearest Emergency Room. * Chest pain * Problems breathing * Seizure activity * Partial or complete paralysis of a body part, slurred speech, weakness or drooping of the face, or a sudden inability to walk or hold your balance Allergies/Adverse Reactions: Allergies No Known Allergies Allergy (Verified 07/29/19 11:48) Medications to take at Discharge Pnv No.103/Folic/Om3s/Fish Oil [ Gummies] 1 ea PO DAILY 07/30/19 Please Follow Up With: Dior Galvan MD - [phone] When: Call to make an appointment with your doctor in 6 weeks. If you had elevated Blood pressure or 4th degree laceration you will need to be seen in 2 weeks. Primary Care Physician: Laverne Mitchell DO [Primary Care Provider] - Test Results: Test results from this visit will be discussed in further detail at your follow- up appointment, if applicable.
--- NOTE | 2019-07-31 03:52 | PCM.PN.OB ---
Patient Problems: Active and Suspected Problems (Last Reviewed 07/29/19 @ 11:48 by Jody Nice) Active labor (Acute) SROM (spontaneous rupture of membranes) (Acute) Subjective: doing well no complaints pain controlled no CP SOB N V ambulating well tolerating po lochia moderate, going well - Physical Exam Vitals/I&O's: Vital Signs Temp Pulse Resp BP Pulse Ox 98.1 F 71 16 104/55 L 96 07/31/19 03:43 07/31/19 03:43 07/31/19 03:43 07/31/19 03:43 07/30/19 10:10 Oxygen Delivery Method Room Air Weight: 225 lb Body Mass Index (BMI) 37.4 Intake and Output for Last 24 Hours 07/29/19 07/30/19 07/31/19 23:59 23:59 23:59 Intake Total 2410.84 / 2410.84 Output Total 700 / 700 Balance 1710.84 / 1710.84 General: Alert, Oriented x3 Current Medications Acetaminophen (Tylenol) 1,000 mg PO Q8H PRN PRN PRN Reason: Pain Score 1-3/10 Last Admin: 07/30/19 15:54 Dose: 1,000 mg Documented by: Bisacodyl (Dulcolax) 10 mg RECTAL UD PRN PRN Reason: If no BM Dibucaine (Dibucaine) 1 applic TOPICAL TID PRN PRN; Protocol PRN Reason: Discomfort Hydrocortisone (Hytone) 1 applic TOPICAL TID PRN PRN; Protocol PRN Reason: Discomfort Methylergonovine Maleate (Methergine) 0.2 mg IM X1 PRN PRN Reason: Excess bleeding/uterine atony Naproxen (Naprosyn) 500 mg PO BID PRN PRN PRN Reason: PAIN 1-10/10 Ondansetron HCl (Zofran) 4 mg IV Q4H PRN PRN PRN Reason: Nausea Oxycodone HCl (Oxyir) 5 mg PO Q4H PRN PRN PRN Reason: Pain Score 6-10/10 Senna/Docusate Sodium (Senokot-S, Cookie-Colace) 1 - 2 tablet PO DAILY PRN PRN PRN Reason: Constipation Simethicone (Mylicon) 80 mg PO PCHS PRN PRN Reason: Indigestion/Stomach pain Sodium Chloride () 5 - 15 ml IV UD PRN PRN Reason: SALINE FLUSH Last Admin: 07/30/19 10:53 Dose: 10 ml Documented by: Medical Necessity - Tobacco Use Smoking Status: Never smoker Assessment/Plan All Active Problems (Last Reviewed 07/29/19 @ 11:48 by Jody Nice) Active labor (Acute) SROM (spontaneous rupture of membranes) (Acute) Influenza vaccination given (Acute) (Acute) Supervision of other normal (Acute) Segmental and somatic dysfunction of pelvic region (Acute) Segmental and somatic dysfunction of sacral region (Acute) Segmental and somatic dysfunction of lumbar region (Acute) s/p PPD # 1 1. routine post delivery care 2. breast feeding- support given 3. rh positive 4. rubella immune
--- NOTE | 2019-07-31 03:52 | PCM.DCVAG ---
Discharge Diet: No Restrictions Discharge Activity: Return to Normal Activity, May not drive while taking narcotic pain medications., May Shower May resume sexual activity in: 4-6 weeks Call your doctor if your incision/area has: Continuous Slow Oozing, Sudden Increased Bleeding, Increased Pain/ Swelling, Increased Redness, Foul Smelling Discharge Additional Instructions: If you experience any of the following, contact your healthcare provider. Bleeding that soaks a pad every hour for 2 hours Fever 100.4 or higher Unrelieved incision or abdominal pain Swelling, redness, discharge or bleeding from your incision or episiotomy site Your incision begins to separate Problems urinating (including inability to urinate or burning while urinating). Visual changes Severe headache Flu-like symptoms Pain or redness in one of both of your breasts Pain, warmth, tenderness or swelling in your legs, especially the calf area Frequent nausea and vomiting Symptoms of depression or anxiety If you experience any of the following, call 911 or go to the nearest Emergency Room. Chest pain Problems breathing Seizure activity Partial or complete paralysis of a body part, slurred speech, weakness or drooping of the face, or a sudden inability to walk or hold your balance Allergies/Adverse Reactions: Allergies No Known Allergies Allergy (Verified 07/29/19 11:48) Medications to take at Discharge Pnv No.103/Folic/Om3s/Fish Oil [ Gummies] 1 ea PO DAILY 07/30/19 Please Follow Up With: Dior Galvan MD - [phone] When: Call to make an appointment with your doctor in 6 weeks. If you had elevated Blood pressure or 4th degree laceration you will need to be seen in 2 weeks. Primary Care Physician: Laverne Mitchell DO [Primary Care Provider] - Test Results: Test results from this visit will be discussed in further detail at your follow-up appointment, if applicable.
[2019-07-31] MEDS: Naproxen 250 MG Tablet 500 MG PO (09:26)
--- NOTE | 2019-07-31 09:47 | NURSING ---
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 She is currently BLS and PALS certified. Infant CPR not necessary.
== END 2019-07-31 10:20 | disposition home or self-care (01) | DRG 807 ==
LOC: WPOUT 01:52 → WP 01:52
PROVIDERS: Admitting Provider Obstetrics & Gynecology; PCP Family Medicine; Visit Provider Obstetrics & Gynecology
DX: O42.92 Full-term premature rupture of membranes, unspecified as to length of time between rupture and onset of labor (principal); Z37.0 Single live birth; Z3A.39 39 weeks gestation of pregnancy
CPT/HCPCS: 59025; 59050; 85025; 86850; 86900; 86901; 99218; J7120; A4216; G0378

== ENCOUNTER → 2021-01-04 11:37 | Outpatient (CLI) | payer BC, SELFPAY | PROVIDERS: PCP Family Medicine; Visit Provider Physician Assistant Surgical | DX: U07.1 COVID-19 (principal) | CPT/HCPCS: 87635; U0005; U0003 ==

== ENCOUNTER 2021-05-06 15:56 | Outpatient (CLI) | payer BC, SELFPAY ==
[2021-05-10 14:01] LABS: HPV APTIMA, High Risk Negative (Negative)
== END 2021-05-06 23:59 | disposition home or self-care (01) ==
LOC: LABSPEC 15:57
PROVIDERS: PCP Family Medicine; Referring Provider Nurse Practitioner Women's Health; Visit Provider Nurse Practitioner Women's Health
DX: Z12.4 Encounter for screening for malignant neoplasm of cervix (principal)
CPT/HCPCS: 87624; 88175; G0145

== ENCOUNTER → 2022-06-02 | Outpatient (CLI) | payer BC, SELFPAY ==
[2022-06-02 08:08] LABS: Cholesterol 114 mg/dL (200); Glucose 100 mg/dL (74-106); High Density Lipoprotein 52 mg/dL; Triglycerides 45 mg/dL; Very Low Density Lipoprotein 9 mg/dL (5-40)
[2022-06-02 08:10] LABS: Vitamin D,25 Hydroxy 39.9 ng/mL
== END | disposition home or self-care (01) ==
LOC: LAB 07:03
PROVIDERS: PCP Family Medicine; Referring Provider Obstetrics & Gynecology; Visit Provider Obstetrics & Gynecology
DX: Z01.419 Encounter for gynecological examination (general) (routine) without abnormal findings (principal)
CPT/HCPCS: 36415; 80061; 82306; 82947

== ENCOUNTER 2023-02-02 09:30 | Outpatient (RCR) | payer BC, SELFPAY ==
--- NOTE | 2023-01-12 18:06 | HP.PTEVAL_ITS ---
Patient's Visit Information Visit Information Visit Information: CLINT FRANCO is a 32 year old F referred to Physical Therapy by Dr. Siena Perdue MD with a diagnosis of STRESS URINARY INCONTINENCE. Date of Evaluation: 01/12/23 Physical Therapist: Jessica Caruso PT, Cert MDT Visit Plan Frequency: 1x/Week Duration: 2-4 Months Plan: *CHECK AUTH* PF THERAPY FOR STRENGTHENING AND ENDURANCE TRAINING. URINARY URGE AND FREQUENCY EDUCATION. HEALTHY BLADDER HABIT EDUCATION. TRAINING IN COORDINATION OF PELVIC FLOOR MUSCULATURE WITH HIP AND CORE (TRANSVERSE ABDOMINUS) MUSCULATURE. TRAINING IN ABDOMINAL CAVITY PRESSURE MGMT WITH ADL'S AND EXERCISE. 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 Disability: NO Present symptoms: URINARY LEAKAGE WITH ACTIVITY AND URINARY FREQUENCY. Present since: STARTED ABOUT A YEAR AGO AND INCREASED THIS SPRING. Pain Scale: NO Is it getting better, worse or staying the same: STAYING THE SAME Commenced as a result of: WORKING OUT. REALLY STARTED NOTICING IT INCREASE IN SPRING 2022 WITH INCREASED FLUID INTAKE OF 120 0Z PLUS A DAY. INCREASED EX AT THE SAME TIME. Symptoms at onset: URINARY LEAKING WITH ANY STRAINING OR JOLTING MOTION - I COULDN'T STOP IT . Worse: CERTAIN EX'S LIKE JUMPING ROPE, FRONT SQUATS - PUSHING BACK UP WITH HEAVY WEIGHT, RUNNING DOWN HILL. NO PROBLEM AT HOME OR WORK - JUST WITH EXERCISE. Better: NOTHING. Disturbed sleep: GETTING UP AT NIGHT 0-1 TO URINATE Previous history/Previous treatment: SOME UI WITH SNEEZING AND JUMPING SINCE 2016 AFTER HAVING FIRST CHILD. 3 CHILDREN. ALL VAGINAL BIRTHS. NO PRIOR TREATMENT. NO COMPLICATIONS WITH DELIVERIES. Treatment this episode: NONE Coughing/sneezing/straining: POSITIVE How long can you delay the need to urinate: LONG NECESSARY Prolapse (Falling out feeling): NO Frequency of Urination: ABOUT EVERY 3 HOURS. Ability to stop urine flow: YES Ability to initiate urine stream: YES Dyspareunia: NO Bowel Incontinence: NO Unexplained weight loss: NO Imaging: NO PMH/Recent major surgery: UNREMARKABLE. Objective Objective: Sitting/Standing Posture: GOOD Lordosis: REDUCED Other Observations: INDEP GAIT AND TRANSFERS Sensory deficit: DARWIN LE LIGHT TOUCH SENSATION GROSSLY INTACT AND SYMMETRICAL ROM deficit: DARWIN LE'S WFL Motor deficit: DARWIN LE'S 5/5 WITH MMT'ING. Dural Signs: NEGATIVE DARWIN LE'S. Lumbar mvmt loss: flex - NIL ext - MOD R SG - MIN L SG - MIN PATIENT DENIES PAIN WITH LUMBAR ROM TESTING ALL PLANES. Core strength: GOOD Palpation: INTERNAL MANUAL VAGINAL TESTING OF PELVIC FLOOR REVEALS PELVIC FLOOR WEAKNESS GRADED 3/5 X 3 REPS WITH 4 SEC ENDURANCE. NO TENDERNESS PALPATION OF PELVIC FLOOR. FUNCTIONAL SCREEN: Incontinence Impact Questionnaire Score: 2 Urogenital Distress Inventory Score: 4 TREATMENT: INITIATED HEP WITH QUICK FLICK KEGELS. Goals Goal 1:: DECREASE URINARY LEAKAGE EPISODES WITH PHYSICAL ACTIVITY. Goal Time Frame: 8-12 Weeks Goal 2:: PATIENT WILL DEMONSTRATE/COMMUNICATE 10 CONSISTENT AND CONSECUTIVE 10 SECOND PELVIC FLOOR MUSCLE CONTRACTIONS TO DEMONSTRATE IMPROVED PELVIC FLOOR ENDURANCE. Goal Time Frame: 8-12 Weeks Goal 3:: PATIENT WILL BE INDEP WITH A HEP/HOME INSTRUCTIONS FOR CONTINUED IMPROVEMENT ONCE FORMAL PHYSICAL THERAPY CONCLUDES. Goal Time Frame: 8-12 Weeks Anticipated Interventions Patient/Client Instruction: Educate patient on: Condition, Plan of Care and Risk Factors For the Purpose of:: To improve self management Therapeutic Exercise to Include: Strength training, Endurance training and Neuromotor development For the Purpose of:: To improve muscle performance and motor function, To increase tolerance to activity/condition/position and To improve ability of physical actions for home/community/work/leisure Text: Thank you for the opportunity to evaluate your patient. For Medicare and Medicare HMO plans, please review the plan of care and approve it. It will need to be FAXED BACK to us at [phone] for Medicare purposes. For Medicare only, by signing this I certify the plan of care. Please let me know if there are questions or concerns regarding this plan of care. Physician Signature: Date:
== END 2023-02-02 19:00 | disposition home or self-care (01) ==
LOC: PT 09:30
PROVIDERS: PCP Family Medicine; Referring Provider Urology; Visit Provider Urology
DX: N39.3 Stress incontinence (female) (male) (principal)
CPT/HCPCS: 97162; 97530